=== PATIENT | female | born 1940 | race African-American/Black ===

== ENCOUNTER 2017-03-04 00:32 | Emergency (ER) | payer OTHER ==
[2017-03-04 00:59] VITALS: BMI 23.3
--- NOTE | 2017-03-04 00:59 | DR.GENAD ---
HPI - PCP Primary Care Physician: bertram - Complaint/Symptoms Chief Complaint Doctors Comments: Patient denies any problems except for bleeding of the left heel. Patient denies SOB, tachycardia, fever, dyspnea. Chief Complaint:: PATIENT REPORTS BLEEDING TO LEFT HEEL AND STATES SHE TAKES BLOOD THINNER FOR ATRIAL FIB AND PRIOR CVA. 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 - Family History History of Family Medical Conditions: Yes Family Medical History: Diabetes Mellitus, Cancer, [place], Coronary Artery Disease, Hypertension - Social History Type of Tobacco Use: None Alcohol Use: None Do you use any recreational Drugs:: No Lives With: Family Lives Where: Home - infectious screening In the last 2 months have you had wt loss of >10#?: NO Have you had fever, night sweats or hemotysis?: No Have you traveled outside the country in the last 6 months?: No Isolation: Standard ROS - Review of Systems Eyes: No Symptoms Reported ENTM: No Symptoms Reported Respiratoy: No Symptoms Reported Cardiovascular: No Symptoms Reported Gastrointestinal/Abdominal: No Symptoms Reported Genitourinary: No Symptoms Reported Neurological: No Symptoms Reported Musculoskeletal: No Symptoms Reported Integumentary: No Symptoms Reported Hematologic/Lymphatic: No Symptoms Reported Endocrine: No Symptoms Reported Psychiatric: No Symptoms Reported All Other Systems: Reviewed and Negative PE - Vital Signs Vitals: Temperature 97.8 F Pulse Rate 97 Respiratory Rate 20 Blood Pressure [Right Arm] 133/80 Blood Pressure 150/82 O2 Sat by Pulse Oximetry 100 - General Limitations: No Limitations General Appearance: Alert, In No Apparent Distress - Head Head Exam: Normal Inspection, Atraumatic - Eyes Eye exam: Normal Appearance, PERRL, EOMI - ENT ENT Exam: Normal Exam External Ear Exam: Normal External Inspection TM/Canal Exam: Bilateral Normal Nose Exam: Normal Nose Exam Mouth Exam: Normal Inspection Throat Exam: Normal Inspection - Neck Neck Exam: Normal Inspection - Chest Chest Inspection: Normal Inspection - Respiratory Respiratory Exam: Normal Lung Sounds Bilat Respiratory Exam: Bilateral Clear to Auscultation - Cardiovascular Cardiovascular Exam: Regular Rate, Normal Rhythm - Abdominal Exam Abdominal Exam: Normal Inspection, Normal Bowel Sounds Abdominal Tenderness: negative: RUQ, RLQ, LUQ, LLQ, Epigastrium, Suprapubic, Diffuse, Mild, Moderate, Severe, Other - Extremities Extremities Exam: Normal Inspection, Full ROM, Other (left lateral heel with a 1cm superficial crack to the left heel w/o signs of bleeding.) - Back Back Exam: Normal Inspection, Full ROM - Neurologic Neurological Exam: Alert, Oriented X3, CN II-XII Intact - Psychiatric Psychiatric Exam: Normal Affect - Skin Skin Exam: Warm, Dry, Intact - Diagnosis Discharge Problem: A-fib Qualifiers: Atrial fibrillation type: chronic Qualified Code(s): I48.2 - Chronic atrial fibrillation - Discharge Plan Condition: Stable - Follow ups/Referrals Follow ups/Referrals: Rishi Rowe [Primary Care Provider] - 3 days - Instructions
[2017-03-04 01:29] LABS: EOSINOPHILS % (AUTO) 1.2 % (0.9-2.9); HEMATOCRIT 37.3 % (36.0-47.0); HEMOGLOBIN 12.3 g/dL (12.0-16.0); LYMPHOCYTES % (AUTO) 27.6 % (21.0-51.0); MEAN CORPUSCULAR HEMOGLOBIN 29.1 pg (27.0-34.0); MEAN CORPUSCULAR HGB CONC 32.8 g/dL (33.0-35.0); MEAN CORPUSCULAR VOLUME 88.6 fL (80.0-100.0); MONOCYTES # (AUTO) 0.5 x10^3/uL (0.3-0.8); MONOCYTES % (AUTO) 15.1 % (0.0-13.0); NEUTROPHILS % (AUTO) 55.1 % (42.0-75.0); PLATELET COUNT 166 X10^3/uL (150.0-450.0); RED BLOOD COUNT 4.21 X10^6/uL (3.5-5.4); RED CELL DISTRIBUTION WIDTH 15.9 % (11.6-16.5); WHITE BLOOD COUNT 3.6 X10^3/uL (3.6-10.0)
[2017-03-04 01:46] LABS: BLOOD UREA NITROGEN 23 mg/dL (7-18); CALCIUM 8.8 mg/dL (8.5-10.1); CARBON DIOXIDE 26.3 mmol/L (21-32); CHLORIDE 107 mmol/L (98-107); GLUCOSE 93 mg/dL (65-99); SODIUM 143 mmol/L (136-145); TROPONIN I < 0.02 ng/mL (0-1.5); eGFR BLACK RACES 56 (>60); eGFR NON BLACK RACES 47 (>60)
[2017-03-04 01:51] LABS: ALANINE AMINOTRANSFERASE 32 Units/L (12-78); ALBUMIN 3.3 g/dL (3.4-5.0); ALKALINE PHOSPHATASE 105 Units/L (46-116); ASPARTATE AMINO TRANSFERASE 25 Units/L (15-37); CKMB % 0.9 % (<4); COR CA(FOR HYPOALB) 9.4 mg/dL (8.5-10.1); CREATINE KINASE 113 Units/L (26-192); TOTAL PROTEIN 7.3 g/dL (6.4-8.2)
[2017-03-04 02:00] VITALS: BP 115/80
== END 2017-03-04 02:14 | disposition home or self-care (01) ==
LOC: ER 00:32
DX: I48.2 Chronic atrial fibrillation (principal)
CPT/HCPCS: 36415; 80053; 82550; 82553; 84484; 85025; 85610; 85730; 93005; 99282

== ENCOUNTER → 2017-08-05 | Outpatient (CLI) | payer OTHER ==
--- NOTE | 2017-08-06 16:58 | MG ---
Examination: Bilateral screening mammogram. Clinical history: Routine screening. Technique: Digital CC and MLO views of both breasts were obtained. Computer aided detection analysis was performed and used during the interpretation. Comparison: 08/10/2014. Findings: The breasts are composed of scattered fibroglandular densities. Benign-appearing calcifications are n oted in the breasts bilaterally. There are several clusters of calcifications in the breasts bilaterally, which are either new or have increased in number. Additional imaging evaluation is recommended, with spot magnification views in the CC and lateral projections and lateral views of both breasts. Impression: 1. Clusters of calcifications in the breasts bilaterally, as described above. BI-RADS category 0 (ZERO) - ASSESSMENT INCOMPLETE; ADDITIONAL IMAGING IS NEEDED. Recommend immediate recall for additional imaging evaluation, as described above. Diagnostic CAD was utilized and reviewed. * 0 (ZERO) - ASSESSMENT INCOMPLETE; ADDITIONAL IMAGING IS NEEDED. * 0C - ASSESSMENT INCOMPLETE, NEEDS ADDITIONAL IMAGING EVALUATION AND/OR PRIOR MAMMOGRAMS FOR COMPARI SON. * 1/1 (ONE) - NEGATIVE. * 2/II (TWO) - BENIGN FINDINGS. * 3/III (THREE) - PROBABLY BENIGN FINDING; SHORT INTERVAL FOLLOW-UP SUGGESTED. * 4/IV (FOUR) - SUSPICIOUS ABNORMALITY; BIOPSY SHOULD BE CONSIDERED. * 5/V - HIGHLY SUSPICIOUS OF MALIGNANCY; BIOPSY SHOULD BE PERFORMED. * 6/IV - KNOWN BIOPSY PROVEN MALIGNANCY-APPROPRIATE ACTION SHOULD BE TAKEN. A NEGATIVE X-RAY REPORT SHOULD NOT DELAY BIOPSY IF A DOMINANT OR CLINICALLY SUSPICIOUS MASS IS PRESENT; 4 TO 8 PERCENT OF CANCERS ARE NOT IDENTIFIED BY X-RAY. A NEGATIVE REPORT MAY REINFORCE THE CLINICAL IMPRESSION. ADENOSIS AND DENSE BREASTS MAY OBSCURE AN UNDERLYING NEOPLASM. Reported By:
== END ==
LOC: RAD 09:12
PROVIDERS: ATTEND Internal Medicine
DX: Z12.31 Encounter for screening mammogram for malignant neoplasm of breast (principal); R92.8 Other abnormal and inconclusive findings on diagnostic imaging of breast
CPT/HCPCS: 77067

== ENCOUNTER → 2017-08-08 | Outpatient (CLI) | payer OTHER ==
--- NOTE | 2017-08-11 10:37 | CT ---
HISTORY: Pleurodynia. Patient states she has fallen lately and has a knot on left side of her chest . Study: CT scan of the chest without IV contrast Comparison: No prior chest CTs Technique: Noncontrast CT images of chest are reviewed in axial, coronal and sagittal planes. Dose re duction techniques utilized automatic exposure control. Findings: There is multilevel spondylosis of the thoracic spine. There is accentuation of the patient's thoraci c kyphosis. No fracture is seen. A soft tissue knot is not appreciated within the chest wall. There i s no evidence of mediastinal adenopathy or fluid. The heart is enlarged. There is mild ectasia of the ascending aorta which measures 4 cm in AP diameter. Right and left coronary artery calcifications ar e present. No infiltrate or pleural fluid is seen. There are bilateral noncalcified soft tissue nodul es involving the lungs. These range in size from 2.82 7.2 mm is. The patient should have noncontrast CT follow-up at 3-[address] at 18-24 months. The visualized liver and adrenal glands are normal. There are multiple cysts present involving the left upper renal pole. There are either sm all kidney stones present nor vascular calcifications seen involving the left kidney also. IMPRESSION: Small bilateral pulmonary nodules without calcification. These should be followed with CT as noted ab ove. No infiltrate, adenopathy or pleural fluid. No evidence of soft tissue abnormality involving the chest wall. A fracture is not identified either. Cardiac enlargement with coronary artery calcifications . Reported By:
== END ==
LOC: RAD 08:41
PROVIDERS: ATTEND Internal Medicine
DX: R07.81 Pleurodynia (principal)
CPT/HCPCS: 71250; A4222

== ENCOUNTER 2019-05-06 11:39 | Observation (INO) ==
--- NOTE | 2019-05-06 12:28 | DR.HTN ---
HPI Time Seen Time Seen by Provider: 05/06/19 11:59 Primary Care Physician Primary Care Physician: MAURO Complaints Chief Complaint Doctors Comments: A 72 y/o female here because her pulse is low. 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 This showed low pulse and high BP. She went to the local fire station and the HR was low still. This is her reason for being here. She denies SOB or c/p. Chief Complaint:: PT. C/O HIGH BLOOD PRESSURE. PT. STATES SHE WENT TO THE FIRE STATION TO HAVE IT CHECKED AND IT WAS ELEVATED AND THAT HER HEART RATE WAS LOW. PT. DENIES PAIN. 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 Family History History of Family Medical Conditions: Yes Family Medical History: Diabetes Mellitus, Cancer, [place], Coronary Artery Disease and Hypertension Social History Does patient currently use any type of tobacco product: No Have you used tobacco products in the last 12 months: No Type of Tobacco Use: None Does any household member use tobacco: No Alcohol Use: None Do you use any recreational Drugs:: No Lives With: Family Lives Where: Home infectious screening In the last 2 months have you had wt loss of >10#?: NO Have you had fever, night sweats or hemotysis?: No Have you traveled outside the country in the last 6 months?: No Isolation: Standard ROS Review of Systems Constitutional: No Symptoms Reported Eyes: No Symptoms Reported ENTM: No Symptoms Reported Respiratoy: No Symptoms Reported Cardiovascular: No Symptoms Reported Gastrointestinal/Abdominal: No Symptoms Reported Genitourinary: No Symptoms Reported Neurological: Other (light headed) Musculoskeletal: No Symptoms Reported Integumentary: No Symptoms Reported Hematologic/Lymphatic: No Symptoms Reported Endocrine: No Symptoms Reported Psychiatric: No Symptoms Reported PE Vital Signs Vitals: Temperature 98.3 F Pulse Rate [Right Brachial] 48 Pulse Rate 48 Respiratory Rate 20 Blood Pressure [Right Arm] 107/68 Blood Pressure 191/81 O2 Sat by Pulse Oximetry 98 General Limitations: No Limitations General Appearance: Alert and In No Apparent Distress Head Head Exam: Normal Inspection, Atraumatic and Normocephalic Eyes Eye exam: Normal Appearance and EOMI ENT ENT Exam: Normal Oropharynx, Normal External Ear Exam, Mucous Membranes Moist and TM's Normal Bilaterally Neck Neck Exam: Normal Inspection, Full ROM and Trachea Midline Chest Chest Inspection: Normal Inspection and Symmetric Chest Wall Rise Respiratory Respiratory Exam: Normal Lung Sounds Bilat Cardiovascular Cardiovascular Exam: Bradycardia, Normal Heart Sounds, +S1 and +S2 Abdominal Exam Abdominal Exam: Normal Inspection, Normal Bowel Sounds and Soft Extremities Extremities Exam: Edema (distal legs) Back Back Exam: Normal Inspection Neurologic Neurological Exam: Alert and Oriented X3 Skin Skin Exam: Dry and Normal Color MDM Differential Diagnosis Differential Diagnosis: Hyertension, essential Differential Diagnosis Comment: Medication/Drug effect. COURSE Reevaluation 1st: Improved Education/Counseling Education/Counseling: Patient, Family, Education and Counseling Educated On: Treatment, Diagnosis, Prognosis and Needs for Follow Up ROR Labs Reviewed Result Diagrams: 05/06/19 12:25 05/06/19 12:25 Laboratory: WBC 3.3 X10^3/uL (3.6-10.0) L 05/06/19 12:25 RBC 4.18 X10^6/uL (3.5-5.4) 05/06/19 12:25 Hgb 12.8 g/dL (12.0-16.0) 05/06/19 12:25 Hct 38.4 % (36.0-47.0) 05/06/19 12:25 MCV 92.0 fL (80.0-100.0) 05/06/19 12:25 MCH 30.6 pg (27.0-34.0) 05/06/19 12:25 MCHC 33.2 g/dL (33.0-35.0) 05/06/19 12:25 RDW 14.8 % (11.6-16.5) 05/06/19 12:25 Plt Count 163 X10^3/uL (150.0-450.0) 05/06/19 12:25 MPV 9.0 fL (7.4-11.0) 05/06/19 12:25 Neut % (Auto) 66.7 % (42.0-75.0) 05/06/19 12:25 Lymph % (Auto) 17.1 % (21.0-51.0) L 05/06/19 12:25 [place] % (Auto) 13.9 % (0.0-13.0) H 05/06/19 12:25 Eos % (Auto) 1.4 % (0.9-2.9) 05/06/19 12:25 Baso % (Auto) 0.9 % (0.2-1.0) 05/06/19 12:25 Neut # (Auto) 2.2 x10^3/uL (2.2-4.8) 05/06/19 12:25 Lymph # (Auto) 0.6 X10^3/uL (1.3-2.9) L 05/06/19 12:25 [place] # (Auto) 0.5 x10^3/uL (0.3-0.8) 05/06/19 12:25 Eos # (Auto) 0.0 x10^3/uL (0.0-0.2) 05/06/19 12:25 Baso # (Auto) 0.0 X10^3/uL (0.0-0.1) 05/06/19 12:25 Absolute Nucleated RBC 0.1 /100WBC 05/06/19 12:25 PT 19.4 SECONDS (11.8-14.3) 05/06/19 12:25 INR Target Range - 05/06/19 12:25 INR 1.70 (0.8-1.3) H 05/06/19 12:25 Sodium 142 mmol/L (136-145) 05/06/19 12:25 Corrected Sodium TNP 05/06/19 12:25 Potassium 4.3 mmol/L (3.5-5.1) 05/06/19 12:25 Chloride 104 mmol/L (98-107) 05/06/19 12:25 Carbon Dioxide 27.8 mmol/L (21-32) 05/06/19 12:25 BUN 18 mg/dL (7-18) 05/06/19 12:25 Creatinine 1.36 mg/dL (0.55-1.02) H 05/06/19 12:25 Est GFR (MDRD) Af Amer 48 (>60) L 05/06/19 12:25 Est GFR (MDRD) Non-Af 40 (>60) L 05/06/19 12:25 Glucose 90 mg/dL (65-99) 05/06/19 12:25 Calcium 8.9 mg/dL (8.5-10.1) 05/06/19 12:25 Corrected Calcium TNP 05/06/19 12:25 Total Bilirubin 0.70 mg/dL (0.2-1.0) 05/06/19 12:25 AST 57 Units/L (15-37) H 05/06/19 12:25 ALT 109 Units/L (12-78) H 05/06/19 12:25 Alkaline Phosphatase 89 Units/L (46-116) 05/06/19 12:25 Creatine Kinase 126 Units/L (26-192) 05/06/19 12:25 CK-MB (CK-2) 1.4 ng/mL (0-4.0) 05/06/19 12:25 CK/CKMB % Calc 1.1 % (<4) 05/06/19 12:25 Troponin I < 0.02 ng/mL (0-1.5) 05/06/19 12:25 Total Protein 7.3 g/dL (6.4-8.2) 05/06/19 12:25 Albumin 3.6 g/dL (3.4-5.0) 05/06/19 12:25 Globulin 3.7 g/dL (2.5-4.5) 05/06/19 12:25 Albumin/Globulin Ratio 1.0 Ratio (1.1-2.1) L 05/06/19 12:25 TSH 3rd Generation 1.416 uIU/mL (0.358-3.74) 05/06/19 12:25 XRAY XRAY Interpreted by: Radiologist XRAY Findings: CXR: Increased linear/nodular interstitial markings b/l. EKG Rate: 43 [place]: Normal Rhythm: SB Block: None Hypertrophy: LVH ST: Normal Opioid Opioid Risk Tool Age (Carlos box if 16-45): No History of Preadolescent Sexual Abuse: No Total: 0 Total Score Risk Category: Low Risk Copyright: Smiley predicting aberrant behaviors Diagnosis Discharge Problem: Bradycardia, Hypertension, uncontrolled A-fib Qualifiers: Atrial fibrillation type: paroxysmal Qualified Code(s): I48.0 - Paroxysmal atrial fibrillation Instructions Forms: Excuse From Work
[2019-05-06 12:35] LABS: BASOPHILS % (AUTO) 0.9 % (0.2-1.0); EOSINOPHILS % (AUTO) 1.4 % (0.9-2.9); HEMATOCRIT 38.4 % (36.0-47.0); HEMOGLOBIN 12.8 g/dL (12.0-16.0); LYMPHOCYTES # (AUTO) 0.6 X10^3/uL (1.3-2.9); LYMPHOCYTES % (AUTO) 17.1 % (21.0-51.0); MEAN CORPUSCULAR HEMOGLOBIN 30.6 pg (27.0-34.0); MEAN CORPUSCULAR HGB CONC 33.2 g/dL (33.0-35.0); MONOCYTES # (AUTO) 0.5 x10^3/uL (0.3-0.8); MONOCYTES % (AUTO) 13.9 % (0.0-13.0); NEUTROPHILS # (AUTO) 2.2 x10^3/uL (2.2-4.8); NEUTROPHILS % (AUTO) 66.7 % (42.0-75.0); PLATELET COUNT 163 X10^3/uL (150.0-450.0); RED BLOOD COUNT 4.18 X10^6/uL (3.5-5.4); RED CELL DISTRIBUTION WIDTH 14.8 % (11.6-16.5); WHITE BLOOD COUNT 3.3 X10^3/uL (3.6-10.0)
[2019-05-06 12:54] LABS: BLOOD UREA NITROGEN 18 mg/dL (7-18); CALCIUM 8.9 mg/dL (8.5-10.1); CARBON DIOXIDE 27.8 mmol/L (21-32); CHLORIDE 104 mmol/L (98-107); CREATININE 1.36 mg/dL (0.55-1.02); SODIUM 142 mmol/L (136-145); TROPONIN I < 0.02 ng/mL (0-1.5); eGFR NON BLACK RACES 40 (>60)
[2019-05-06 12:58] LABS: ALANINE AMINOTRANSFERASE 109 Units/L (12-78); ALBUMIN 3.6 g/dL (3.4-5.0); ALKALINE PHOSPHATASE 89 Units/L (46-116); ASPARTATE AMINO TRANSFERASE 57 Units/L (15-37); CKMB % 1.1 % (<4); CREATINE KINASE 126 Units/L (26-192); CREATINE KINASE MB 1.4 ng/mL (0-4.0); TOTAL PROTEIN 7.3 g/dL (6.4-8.2); TSH (3RD GENERATION) 1.416 uIU/mL (0.358-3.74)
[2019-05-06] MEDS ORDERED: APRESOLINE INJ 20 MG VIAL IVP ONE ×3 (13:27→23:22)
[2019-05-06] MEDS ORDERED: APRESOLINE INJ 20 MG VIAL ONE (13:33)
[2019-05-06] MEDS ORDERED: ATROPINE SULFATE ABBOJECT IVP ONE ×3 (14:50→21:39)
[2019-05-06] MEDS ORDERED: ATROPINE SULFATE ABBOJECT ONE ×2 (14:51→20:34)
[2019-05-06 17:53] VITALS: BMI 25.0
[2019-05-06] MEDS ORDERED: CATAPRES-TTS-1 TD SCH (18:00)
[2019-05-06] MEDS: CHECK PATCH XX SCH (20:43)
[2019-05-06] MEDS ORDERED: CORDARONE TAB 200 MG PO SCH (21:00)
[2019-05-06 23:08] LABS: BLOOD UREA NITROGEN 18 mg/dL (7-18); CALCIUM 8.5 mg/dL (8.5-10.1); CARBON DIOXIDE 30.2 mmol/L (21-32); CHLORIDE 108 mmol/L (98-107); CREATININE 1.48 mg/dL (0.55-1.02); SODIUM 145 mmol/L (136-145); TROPONIN I < 0.02 ng/mL (0-1.5); eGFR NON BLACK RACES 36 (>60)
[2019-05-06 23:09] LABS: ALANINE AMINOTRANSFERASE 94 Units/L (12-78); ALBUMIN 3.1 g/dL (3.4-5.0); ALKALINE PHOSPHATASE 84 Units/L (46-116); ASPARTATE AMINO TRANSFERASE 49 Units/L (15-37); CKMB % 1.1 % (<4); COR CA(FOR HYPOALB) 9.2 mg/dL (8.5-10.1); CREATINE KINASE 114 Units/L (26-192); CREATINE KINASE MB 1.2 ng/mL (0-4.0); MAGNESIUM 1.9 mg/dL (1.7-2.9); TOTAL PROTEIN 6.7 g/dL (6.4-8.2)
[2019-05-07 06:48] LABS: BASOPHILS % (AUTO) 0.8 % (0.2-1.0); EOSINOPHILS % (AUTO) 0.7 % (0.9-2.9); HEMATOCRIT 42.1 % (36.0-47.0); LYMPHOCYTES # (AUTO) 0.6 X10^3/uL (1.3-2.9); LYMPHOCYTES % (AUTO) 13.8 % (21.0-51.0); MEAN CORPUSCULAR HEMOGLOBIN 30.9 pg (27.0-34.0); MEAN CORPUSCULAR HGB CONC 33.3 g/dL (33.0-35.0); MEAN PLATELET VOLUME 10.2 fL (7.4-11.0); MONOCYTES # (AUTO) 0.5 x10^3/uL (0.3-0.8); MONOCYTES % (AUTO) 11.9 % (0.0-13.0); NEUTROPHILS # (AUTO) 3.3 x10^3/uL (2.2-4.8); NEUTROPHILS % (AUTO) 72.8 % (42.0-75.0); PLATELET COUNT 128 X10^3/uL (150.0-450.0); RED BLOOD COUNT 4.53 X10^6/uL (3.5-5.4); RED CELL DISTRIBUTION WIDTH 14.8 % (11.6-16.5); WHITE BLOOD COUNT 4.5 X10^3/uL (3.6-10.0)
[2019-05-07 06:51] LABS: ALANINE AMINOTRANSFERASE 110 Units/L (12-78); ALBUMIN 3.5 g/dL (3.4-5.0); ALKALINE PHOSPHATASE 93 Units/L (46-116); ASPARTATE AMINO TRANSFERASE 57 Units/L (15-37); BLOOD UREA NITROGEN 15 mg/dL (7-18); CALCIUM 8.8 mg/dL (8.5-10.1); CHLORIDE 105 mmol/L (98-107); CKMB % 0.8 % (<4); COR NA(FOR HYPERGLY) 141 mmol/L (136-145); CREATINE KINASE 125 Units/L (26-192); CREATINE KINASE MB < 1.0 ng/mL (0-4.0); CREATININE 1.38 mg/dL (0.55-1.02); SODIUM 141 mmol/L (136-145); TOTAL PROTEIN 7.4 g/dL (6.4-8.2); TROPONIN I < 0.02 ng/mL (0-1.5); eGFR NON BLACK RACES 39 (>60)
[2019-05-07] MEDS: CHECK PATCH XX SCH ×2 (09:00→20:57)
[2019-05-07] MEDS: ALDACTONE TAB 25 MG PO SCH (09:41)
[2019-05-07] MEDS: OXYBUTYNIN CHLORIDE ER PO SCH (09:42)
[2019-05-07] MEDS: FOLIC ACID TAB 1 MG PO SCH (09:42)
[2019-05-07] MEDS ORDERED: PHARMACY CONSULT - DOSE _____ XX SCH (14:00)
[2019-05-07] MEDS ORDERED: COZAAR PO SCH (21:00)
[2019-05-07] MEDS ORDERED: LOVENOX INJ 30 MG SYR SC SCH (21:00)
[2019-05-08 06:28] LABS: BASOPHILS % (AUTO) 0.9 % (0.2-1.0); EOSINOPHILS # (AUTO) 0.1 x10^3/uL (0.0-0.2); EOSINOPHILS % (AUTO) 1.3 % (0.9-2.9); HEMATOCRIT 40.5 % (36.0-47.0); HEMOGLOBIN 13.7 g/dL (12.0-16.0); LYMPHOCYTES # (AUTO) 0.7 X10^3/uL (1.3-2.9); LYMPHOCYTES % (AUTO) 14.4 % (21.0-51.0); MEAN CORPUSCULAR HGB CONC 33.8 g/dL (33.0-35.0); MEAN CORPUSCULAR VOLUME 91.8 fL (80.0-100.0); MEAN PLATELET VOLUME 9.3 fL (7.4-11.0); MONOCYTES # (AUTO) 0.7 x10^3/uL (0.3-0.8); NEUTROPHILS # (AUTO) 3.2 x10^3/uL (2.2-4.8); NEUTROPHILS % (AUTO) 68.4 % (42.0-75.0); PLATELET COUNT 170 X10^3/uL (150.0-450.0); RED BLOOD COUNT 4.41 X10^6/uL (3.5-5.4); RED CELL DISTRIBUTION WIDTH 14.9 % (11.6-16.5); WHITE BLOOD COUNT 4.6 X10^3/uL (3.6-10.0)
[2019-05-08 06:39] LABS: ALANINE AMINOTRANSFERASE 94 Units/L (12-78); ALBUMIN 3.1 g/dL (3.4-5.0); ALKALINE PHOSPHATASE 89 Units/L (46-116); ASPARTATE AMINO TRANSFERASE 48 Units/L (15-37); BLOOD UREA NITROGEN 22 mg/dL (7-18); CALCIUM 8.5 mg/dL (8.5-10.1); CARBON DIOXIDE 28.2 mmol/L (21-32); CHLORIDE 104 mmol/L (98-107); COR CA(FOR HYPOALB) 9.2 mg/dL (8.5-10.1); CREATININE 1.41 mg/dL (0.55-1.02); SODIUM 140 mmol/L (136-145); TOTAL PROTEIN 6.9 g/dL (6.4-8.2); eGFR NON BLACK RACES 38 (>60)
[2019-05-08] MEDS: FOLIC ACID TAB 1 MG PO SCH (08:40)
[2019-05-08] MEDS: ALDACTONE TAB 25 MG PO SCH (08:40)
[2019-05-08] MEDS: OXYBUTYNIN CHLORIDE ER PO SCH (08:40)
[2019-05-08] MEDS: CHECK PATCH XX SCH ×2 (08:51→09:04)
[2019-05-08 12:41] VITALS: BP 168/76
== END 2019-05-08 13:25 | disposition home or self-care (01) ==
LOC: ER 11:44 → ICU 11:44
PROVIDERS: ADMIT Internal Medicine; ATTEND Internal Medicine
DX: I48.91 Unspecified atrial fibrillation; R79.1 Abnormal coagulation profile; R00.1 Bradycardia, unspecified; R94.31 Abnormal electrocardiogram [ECG] [EKG]; E78.2 Mixed hyperlipidemia; R94.5 Abnormal results of liver function studies; R94.4 Abnormal results of kidney function studies; I10 Essential (primary) hypertension
CPT/HCPCS: 36415; 71010; 71045; 80053; 82550; 82553; 83735; 84443; 84484; 85025; 85610; 93005; 96365; 96372; 96374; 96375; 97162; 99284; A4222; G0378; J0360; J0461; J1650

== ENCOUNTER 2019-05-22 21:19 | Observation (INO) ==
--- NOTE | 2019-05-22 21:57 | DR.GENAD ---
HPI Time Seen Time Seen by Provider: 05/22/19 21:51 PCP Primary Care Physician: MAURO Complaint/Symptoms Chief Complaint Doctors Comments: A 78 y/o female presenting with c/o having low energy x several weeks. Her PCP had decreased the use of her Coreg from BID to daily. She was at a local pharmacy this evening and had her v/s checked, her pulse was 52. She denies c/p or dyspnea. 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 PT IN NO DISTRESS IN TRIAGE BUT HR NOTED TO BE 45. 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 Past Surgical History Comment: TUBAL LIGATION Family History History of Family Medical Conditions: Yes Family Medical History: Diabetes Mellitus, Cancer, [place], Coronary Artery Disease and Hypertension Social History Does patient currently use any type of tobacco product: No Have you used tobacco products in the last 12 months: No Type of Tobacco Use: None Does any household member use tobacco: No Alcohol Use: None Do you use any recreational Drugs:: No Lives With: Alone Lives Where: Home infectious screening In the last 2 months have you had wt loss of >10#?: NO Have you had fever, night sweats or hemotysis?: No Have you traveled outside the country in the last 6 months?: No Isolation: Standard ROS Review of Systems Constitutional: Fatigue Eyes: No Symptoms Reported ENTM: No Symptoms Reported Respiratoy: No Symptoms Reported Cardiovascular: No Symptoms Reported Gastrointestinal/Abdominal: No Symptoms Reported Genitourinary: No Symptoms Reported Neurological: No Symptoms Reported Musculoskeletal: No Symptoms Reported Integumentary: No Symptoms Reported Hematologic/Lymphatic: No Symptoms Reported Endocrine: No Symptoms Reported Psychiatric: No Symptoms Reported PE Vital Signs Vitals: Temperature 98.8 F Pulse Rate 47 Respiratory Rate 17 Blood Pressure [Right Arm] 177/77 Blood Pressure 177/77 O2 Sat by Pulse Oximetry 99 General Limitations: No Limitations General Appearance: Alert and In No Apparent Distress Head Head Exam: Normal Inspection, Atraumatic and Normocephalic Eyes Eye exam: Normal Appearance and EOMI ENT ENT Exam: Normal Exam, Normal Oropharynx and Mucous Membranes Moist Neck Neck Exam: Normal Inspection, Full ROM and Trachea Midline Chest Chest Inspection: Normal Inspection and Symmetric Chest Wall Rise Respiratory Respiratory Exam: Normal Lung Sounds Bilat Cardiovascular Cardiovascular Exam: Regular Rate, Normal Rhythm, Normal Heart Sounds, +S1 and +S2 Abdominal Exam Abdominal Exam: Normal Inspection, Normal Bowel Sounds and Soft; negative Distention, Tenderness, Guarding, Rebound, Rigidity, Dimnished Bowel Sounds, Hyperactive Bowel Sounds, Hypoactive Bowel Sounds, Organomegaly, Trauma, Incision, Ascites, Mass, Bruit, Pulsatile Mass, Hernia and Other Extremities Extremities Exam: Normal Inspection and Full ROM; negative Tenderness, Normal Capillary Refill, Edema, Joint Swelling and Calf Tenderness Back Back Exam: Normal Inspection and Full ROM Neurologic Neurological Exam: Alert and Oriented X3 Psychiatric Psychiatric Exam: Normal Affect and Normal Mood Skin Skin Exam: Dry and Normal Color COURSE Reevaluation 1st: Improved Consultation Consultation Comments: Her presentation and findings were discussed with astronomy instructor physician- Dr. Rivas, who agrees with admission to OBS status Education/Counseling Education/Counseling: Patient, Education and Counseling Educated On: Treatment, Diagnosis, Prognosis and Needs for Follow Up ROR Labs Reviewed Laboratory Results Reviewed?: Yes Result Diagrams: 05/22/19 22:10 05/22/19 22:10 Laboratory: WBC 4.0 X10^3/uL (3.6-10.0) 05/22/19 22:10 RBC 3.96 X10^6/uL (3.5-5.4) 05/22/19 22:10 Hgb 12.1 g/dL (12.0-16.0) 05/22/19 22:10 Hct 36.3 % (36.0-47.0) 05/22/19 22:10 MCV 91.6 fL (80.0-100.0) 05/22/19 22:10 MCH 30.6 pg (27.0-34.0) 05/22/19 22:10 MCHC 33.4 g/dL (33.0-35.0) 05/22/19 22:10 RDW 14.8 % (11.6-16.5) 05/22/19 22:10 Plt Count 126 X10^3/uL (150.0-450.0) L 05/22/19 22:10 MPV 8.8 fL (7.4-11.0) 05/22/19 22:10 Neut % (Auto) 60.3 % (42.0-75.0) 05/22/19 22:10 Lymph % (Auto) 20.6 % (21.0-51.0) L 05/22/19 22:10 [place] % (Auto) 16.8 % (0.0-13.0) H 05/22/19 22:10 Eos % (Auto) 1.4 % (0.9-2.9) 05/22/19 22:10 Baso % (Auto) 0.9 % (0.2-1.0) 05/22/19 22:10 Neut # (Auto) 2.4 x10^3/uL (2.2-4.8) 05/22/19 22:10 Lymph # (Auto) 0.8 X10^3/uL (1.3-2.9) L 05/22/19 22:10 [place] # (Auto) 0.7 x10^3/uL (0.3-0.8) 05/22/19 22:10 Eos # (Auto) 0.1 x10^3/uL (0.0-0.2) 05/22/19 22:10 Baso # (Auto) 0.0 X10^3/uL (0.0-0.1) 05/22/19 22:10 Absolute Nucleated RBC 0.0 /100WBC 05/22/19 22:10 Sodium 140 mmol/L (136-145) 05/22/19 22:10 Corrected Sodium 140 mmol/L (136-145) 05/22/19 22:10 Potassium 4.0 mmol/L (3.5-5.1) 05/22/19 22:10 Chloride 105 mmol/L (98-107) 05/22/19 22:10 Carbon Dioxide 26.3 mmol/L (21-32) 05/22/19 22:10 BUN 31 mg/dL (7-18) H 05/22/19 22:10 Creatinine 1.83 mg/dL (0.55-1.02) H 05/22/19 22:10 Est GFR (MDRD) Af Amer 34 (>60) L 05/22/19 22:10 Est GFR (MDRD) Non-Af 28 (>60) L 05/22/19 22:10 Glucose 116 mg/dL (65-99) H 05/22/19 22:10 Calcium 8.4 mg/dL (8.5-10.1) L 05/22/19 22:10 Corrected Calcium TNP 05/22/19 22:10 Total Bilirubin 0.40 mg/dL (0.2-1.0) 05/22/19 22:10 AST 80 Units/L (15-37) H 05/22/19 22:10 ALT 150 Units/L (12-78) H 05/22/19 22:10 Alkaline Phosphatase 98 Units/L (46-116) 05/22/19 22:10 Creatine Kinase 124 Units/L (26-192) 05/22/19 22:10 CK-MB (CK-2) 1.1 ng/mL (0-4.0) 05/22/19 22:10 CK/CKMB % Calc 0.9 % (<4) 05/22/19 22:10 Troponin I < 0.02 ng/mL (0-1.5) 05/22/19 22:10 Total Protein 7.1 g/dL (6.4-8.2) 05/22/19 22:10 Albumin 3.4 g/dL (3.4-5.0) 05/22/19 22:10 Globulin 3.7 g/dL (2.5-4.5) 05/22/19 22:10 Albumin/Globulin Ratio 0.9 Ratio (1.1-2.1) L 05/22/19 22:10 TSH 3rd Generation 0.912 uIU/mL (0.358-3.74) 05/22/19 22:10 XRAY XRAY Interpreted by: Self XRAY Findings: CXR: cardiomegaly, Rt. bronchial thickening EKG Rate: 50 [place]: Normal Rhythm: SB Block: None Hypertrophy: LVH ST: Normal Opioid Opioid Risk Tool Age (Carlos box if 16-45): No History of Preadolescent Sexual Abuse: No Total: 0 Total Score Risk Category: Low Risk Copyright: Baljit WRIGHT predicting aberrant behaviors Diagnosis Discharge Problem: Bradycardia, Thrombocytopenia, Elevated LFTs, CKD (chronic kidney disease) stage 3, GFR 30-59 ml/min, Hyperlipidemia, mixed A-fib Qualifiers: Atrial fibrillation type: paroxysmal Qualified Code(s): I48.0 - Paroxysmal atrial fibrillation HTN (hypertension) Qualifiers: Hypertension type: essential hypertension Qualified Code(s): I10 - Essential (primary) hypertension
[2019-05-22 22:20] LABS: BASOPHILS % (AUTO) 0.9 % (0.2-1.0); EOSINOPHILS # (AUTO) 0.1 x10^3/uL (0.0-0.2); EOSINOPHILS % (AUTO) 1.4 % (0.9-2.9); HEMATOCRIT 36.3 % (36.0-47.0); HEMOGLOBIN 12.1 g/dL (12.0-16.0); LYMPHOCYTES # (AUTO) 0.8 X10^3/uL (1.3-2.9); LYMPHOCYTES % (AUTO) 20.6 % (21.0-51.0); MEAN CORPUSCULAR HEMOGLOBIN 30.6 pg (27.0-34.0); MEAN CORPUSCULAR HGB CONC 33.4 g/dL (33.0-35.0); MEAN CORPUSCULAR VOLUME 91.6 fL (80.0-100.0); MEAN PLATELET VOLUME 8.8 fL (7.4-11.0); MONOCYTES # (AUTO) 0.7 x10^3/uL (0.3-0.8); MONOCYTES % (AUTO) 16.8 % (0.0-13.0); NEUTROPHILS # (AUTO) 2.4 x10^3/uL (2.2-4.8); NEUTROPHILS % (AUTO) 60.3 % (42.0-75.0); PLATELET COUNT 126 X10^3/uL (150.0-450.0); RED BLOOD COUNT 3.96 X10^6/uL (3.5-5.4); RED CELL DISTRIBUTION WIDTH 14.8 % (11.6-16.5)
[2019-05-22 22:36] LABS: BLOOD UREA NITROGEN 31 mg/dL (7-18); CALCIUM 8.4 mg/dL (8.5-10.1); CARBON DIOXIDE 26.3 mmol/L (21-32); CHLORIDE 105 mmol/L (98-107); COR NA(FOR HYPERGLY) 140 mmol/L (136-145); CREATININE 1.83 mg/dL (0.55-1.02); SODIUM 140 mmol/L (136-145); TROPONIN I < 0.02 ng/mL (0-1.5); eGFR NON BLACK RACES 28 (>60)
[2019-05-22 22:40] LABS: ALANINE AMINOTRANSFERASE 150 Units/L (12-78); ALBUMIN 3.4 g/dL (3.4-5.0); ALKALINE PHOSPHATASE 98 Units/L (46-116); ASPARTATE AMINO TRANSFERASE 80 Units/L (15-37); CREATINE KINASE 124 Units/L (26-192); TOTAL PROTEIN 7.1 g/dL (6.4-8.2); TSH (3RD GENERATION) 0.912 uIU/mL (0.358-3.74)
[2019-05-22 23:02] LABS: CKMB % 0.9 % (<4); CREATINE KINASE MB 1.1 ng/mL (0-4.0)
[2019-05-22] MEDS ORDERED: CATAPRES-TTS-2 TD SCH (23:59)
[2019-05-22] MEDS ORDERED: VITAMIN D (1.25MG) PO SCH (23:59)
[2019-05-23 02:11] VITALS: BMI 25.1
--- NOTE | 2019-05-23 04:26 | RAD ---
Chest AP portable Indication: Bradycardia Impression: 05/06/2019 Findings: There is no pneumothorax or effusion. There is cardiomegaly with monitoring leads obscuring minimal detail. Impression: Cardiomegaly and COPD without new convincing acute chest process. Developing edema not completely excluded. Follow-up PA and lateral chest to exclude underlying lung base infection as needed Reported By:
[2019-05-23 05:18] LABS: BASOPHILS % (AUTO) 0.6 % (0.2-1.0); EOSINOPHILS # (AUTO) 0.1 x10^3/uL (0.0-0.2); HEMATOCRIT 36.2 % (36.0-47.0); HEMOGLOBIN 12.1 g/dL (12.0-16.0); LYMPHOCYTES # (AUTO) 1.1 X10^3/uL (1.3-2.9); LYMPHOCYTES % (AUTO) 27.8 % (21.0-51.0); MEAN CORPUSCULAR HGB CONC 33.4 g/dL (33.0-35.0); MEAN PLATELET VOLUME 9.5 fL (7.4-11.0); MONOCYTES # (AUTO) 0.7 x10^3/uL (0.3-0.8); MONOCYTES % (AUTO) 16.4 % (0.0-13.0); NEUTROPHILS # (AUTO) 2.1 x10^3/uL (2.2-4.8); NEUTROPHILS % (AUTO) 53.2 % (42.0-75.0); PLATELET COUNT 119 X10^3/uL (150.0-450.0); RED CELL DISTRIBUTION WIDTH 14.6 % (11.6-16.5)
[2019-05-23 05:24] LABS: ALANINE AMINOTRANSFERASE 135 Units/L (12-78); ALKALINE PHOSPHATASE 79 Units/L (46-116); ASPARTATE AMINO TRANSFERASE 74 Units/L (15-37); BLOOD UREA NITROGEN 27 mg/dL (7-18); CALCIUM 8.6 mg/dL (8.5-10.1); CARBON DIOXIDE 25.3 mmol/L (21-32); CHLORIDE 107 mmol/L (98-107); COR CA(FOR HYPOALB) 9.4 mg/dL (8.5-10.1); CREATININE 1.54 mg/dL (0.55-1.02); SODIUM 140 mmol/L (136-145); TOTAL PROTEIN 6.3 g/dL (6.4-8.2); eGFR NON BLACK RACES 35 (>60)
[2019-05-23] MEDS ORDERED: CORDARONE TAB 200 MG PO SCH (09:00)
[2019-05-23] MEDS: ALDACTONE TAB 25 MG PO SCH (10:02)
[2019-05-23] MEDS: FOLIC ACID TAB 1 MG PO SCH (10:02)
[2019-05-23] MEDS: OXYBUTYNIN CHLORIDE ER PO SCH (10:03)
--- NOTE | 2019-05-23 13:12 | DR.H&P ---
H&P History & Physical for Day of: H&P Date: 05/23/19 Chief Complaint Chief Complaint: weakness, low HR Allergies Allergies Allergy/AdvReac Type Severity Reaction Status Date / Time No Known Drug Allergies Allergy Verified 05/22/19 21:55 History of Present Illness History of Present Illness: Ms. Carroll is a 78y/o female presenting with weakness and low HR. Patient was admitted couple weeks ago for same symptoms and bradycardia. She was seen by Dr. Rowe and told to decrease her Coreg from BID to once a day. She reports she still feels weak. She was seen at the pharmacy yesterday and found to have decreased HR in the 40s. In the ED, her HR was in low 40s and it has been in mid 30s-40s overnight. She denies chest pain, SOB, N/V/D or dizziness. 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 Family History Family Medical History: Diabetes Mellitus, Cancer, [place], Coronary Artery Disease and Hypertension Social History Does patient currently use any type of tobacco product: No Have you used tobacco products in the last 12 months: No Type of Tobacco Use: None Does any household member use tobacco: No Alcohol Use: None Drug Use: None Medications Home Medications: No Known Drug Allergies Allergy (Verified 05/22/19 21:55) Labs Result Diagrams: 05/23/19 04:26 05/23/19 04:26 Labs: Laboratory WBC 4.0 X10^3/uL (3.6-10.0) 05/23/19 04:26 RBC 3.90 X10^6/uL (3.5-5.4) 05/23/19 04:26 Hgb 12.1 g/dL (12.0-16.0) 05/23/19 04:26 Hct 36.2 % (36.0-47.0) 05/23/19 04:26 MCV 93.0 fL (80.0-100.0) 05/23/19 04:26 MCH 31.0 pg (27.0-34.0) 05/23/19 04:26 MCHC 33.4 g/dL (33.0-35.0) 05/23/19 04:26 RDW 14.6 % (11.6-16.5) 05/23/19 04:26 Plt Count 119 X10^3/uL (150.0-450.0) L 05/23/19 04:26 MPV 9.5 fL (7.4-11.0) 05/23/19 04:26 Neut % (Auto) 53.2 % (42.0-75.0) 05/23/19 04:26 Lymph % (Auto) 27.8 % (21.0-51.0) 05/23/19 04:26 [place] % (Auto) 16.4 % (0.0-13.0) H 05/23/19 04:26 Eos % (Auto) 2.0 % (0.9-2.9) 05/23/19 04:26 Baso % (Auto) 0.6 % (0.2-1.0) 05/23/19 04:26 Neut # (Auto) 2.1 x10^3/uL (2.2-4.8) L 05/23/19 04:26 Lymph # (Auto) 1.1 X10^3/uL (1.3-2.9) L 05/23/19 04:26 [place] # (Auto) 0.7 x10^3/uL (0.3-0.8) 05/23/19 04:26 Eos # (Auto) 0.1 x10^3/uL (0.0-0.2) 05/23/19 04:26 Baso # (Auto) 0.0 X10^3/uL (0.0-0.1) 05/23/19 04:26 Absolute Nucleated RBC 0.1 /100WBC 05/23/19 04:26 PT 34.4 SECONDS (11.8-14.3) 05/23/19 04:26 INR Target Range - 05/23/19 04:26 INR 3.54 (0.8-1.3) H 05/23/19 04:26 Sodium 140 mmol/L (136-145) 05/23/19 04:26 Corrected Sodium TNP 05/23/19 04:26 Potassium 4.1 mmol/L (3.5-5.1) 05/23/19 04:26 Chloride 107 mmol/L (98-107) 05/23/19 04:26 Carbon Dioxide 25.3 mmol/L (21-32) 05/23/19 04:26 BUN 27 mg/dL (7-18) H 05/23/19 04:26 Creatinine 1.54 mg/dL (0.55-1.02) H 05/23/19 04:26 Est GFR (MDRD) Af Amer 42 (>60) L 05/23/19 04:26 Est GFR (MDRD) Non-Af 35 (>60) L 05/23/19 04:26 Glucose 85 mg/dL (65-99) 05/23/19 04:26 Calcium 8.6 mg/dL (8.5-10.1) 05/23/19 04:26 Corrected Calcium 9.4 mg/dL (8.5-10.1) 05/23/19 04:26 Total Bilirubin 0.40 mg/dL (0.2-1.0) 05/23/19 04:26 AST 74 Units/L (15-37) H 05/23/19 04:26 ALT 135 Units/L (12-78) H 05/23/19 04:26 Alkaline Phosphatase 79 Units/L (46-116) 05/23/19 04:26 Creatine Kinase 124 Units/L (26-192) 05/22/19 22:10 CK-MB (CK-2) 1.1 ng/mL (0-4.0) 05/22/19 22:10 CK/CKMB % Calc 0.9 % (<4) 05/22/19 22:10 Troponin I < 0.02 ng/mL (0-1.5) 05/22/19 22:10 Total Protein 6.3 g/dL (6.4-8.2) L 05/23/19 04:26 Albumin 3.0 g/dL (3.4-5.0) L 05/23/19 04:26 Globulin 3.3 g/dL (2.5-4.5) 05/23/19 04:26 Albumin/Globulin Ratio 0.9 Ratio (1.1-2.1) L 05/23/19 04:26 TSH 3rd Generation 0.912 uIU/mL (0.358-3.74) 05/22/19 22:10 Review of Systems Constitutional: Weakness; denies Fever, Chills, Sweats and Malaise Eyes: No Symptoms Reported ENT: No Symptoms Reported Respiratory: denies Cough, Shortness of Breath, SOB with Excertion and Pleuritic Pain Cardiovascular: Light Headedness; denies Chest Pain, Palpitations and Orthopnea Gastrointestinal: denies Nausea, Vomiting, Abdominal Pain, Diarrhea and Constipation Genitourinary: No Symptoms Reported Musculoskeletal: No Symptoms Reported Skin: No Symptoms Reported Neurological: Weakness; denies Confusion and Seizures Physical Exam Vital Signs: Temperature 97.9 F Pulse Rate [Right Brachial] 41 Pulse Rate 48 Respiratory Rate 18 Blood Pressure [Right Arm] 149/86 Blood Pressure 187/77 O2 Sat by Pulse Oximetry 100 Oriented: Normal Eyes: Normal Ear: Normal Nose: Normal Respiratory: Clear Throughout Cardiovascular: Bradycardia and Irregular Auscultation: Bowel Sounds: Normal Palpation: Normal Tenderness: Normal Skin: Normal Musculoskeletal: Normal Psychiatric: Normal Mood Description: Calm Speech Pattern: Clear Assessment/Plan (1) Symptomatic bradycardia: Status: Acute Plan: recurrent admissions, HR in mid 30-40s. Coreg and Amiodarone on hold. EKG shows Sinus bradycardia, will consult cardiology for further evaluation. Telemetry, monitor HR closely. Notify MD if less than 30. (2) A-fib: Qualifiers: Atrial fibrillation type: chronic Qualified Code(s): I48.2 - Chronic atrial fibrillation Status: Acute Plan: rate controlled, BB on hold due to bradycardia, INR elevated, will hold warfarin (3) History of hypertension: Status: Chronic (4) History of hyperlipidemia: Status: Chronic (5) Arthritis: Status: Chronic (6) Stroke determined by clinical assessment: Status: Acute (7) Thrombocytopenia: Status: Acute (8) Cervical sprain: Qualifiers: Encounter type: initial encounter Qualified Code(s): S13.9XXA - Sprain of joints and ligaments of unspecified parts of neck, initial encounter Status: Acute (9) CAD (coronary artery disease): Status: Acute (10) COPD (chronic obstructive pulmonary disease): Status: Acute (11) CKD (chronic kidney disease) stage 3, GFR 30-59 ml/min: Status: Acute (12) Supratherapeutic INR: Status: Acute Plan: -monitor with daily PT/INR
[2019-05-23] MEDS: COZAAR PO SCH (20:39)
[2019-05-23] MEDS ORDERED: MILK OF MAGNESIA PO PRN (20:40)
[2019-05-23] MEDS ORDERED: COUMADIN TAB 3 MG PO SCH (21:00)
[2019-05-24 05:32] LABS: BASOPHILS % (AUTO) 0.6 % (0.2-1.0); BLOOD UREA NITROGEN 21 mg/dL (7-18); CALCIUM 8.4 mg/dL (8.5-10.1); CARBON DIOXIDE 28.3 mmol/L (21-32); CHLORIDE 105 mmol/L (98-107); CREATININE 1.41 mg/dL (0.55-1.02); EOSINOPHILS # (AUTO) 0.1 x10^3/uL (0.0-0.2); EOSINOPHILS % (AUTO) 2.6 % (0.9-2.9); HEMATOCRIT 36.3 % (36.0-47.0); HEMOGLOBIN 12.1 g/dL (12.0-16.0); LYMPHOCYTES # (AUTO) 0.8 X10^3/uL (1.3-2.9); LYMPHOCYTES % (AUTO) 21.9 % (21.0-51.0); MEAN CORPUSCULAR HEMOGLOBIN 30.5 pg (27.0-34.0); MEAN CORPUSCULAR HGB CONC 33.3 g/dL (33.0-35.0); MEAN CORPUSCULAR VOLUME 91.7 fL (80.0-100.0); MEAN PLATELET VOLUME 9.7 fL (7.4-11.0); MONOCYTES # (AUTO) 0.6 x10^3/uL (0.3-0.8); MONOCYTES % (AUTO) 15.9 % (0.0-13.0); NEUTROPHILS # (AUTO) 2.1 x10^3/uL (2.2-4.8); PLATELET COUNT 130 X10^3/uL (150.0-450.0); RED BLOOD COUNT 3.95 X10^6/uL (3.5-5.4); RED CELL DISTRIBUTION WIDTH 14.5 % (11.6-16.5); SODIUM 141 mmol/L (136-145); WHITE BLOOD COUNT 3.5 X10^3/uL (3.6-10.0); eGFR NON BLACK RACES 38 (>60)
[2019-05-24] MEDS: ALDACTONE TAB 25 MG PO SCH (08:53)
[2019-05-24] MEDS: FOLIC ACID TAB 1 MG PO SCH (08:54)
[2019-05-24] MEDS: OXYBUTYNIN CHLORIDE ER PO SCH (08:54)
[2019-05-24] MEDS ORDERED: SYNTHROID 50 mcg TAB ONE (08:58)
--- NOTE | 2019-05-24 10:09 | PCM.PROG ---
Progress Note - Progress Note for Day of Date of Exam: 05/24/19 - Subjective Subjective: WAS ADMITTED FOR BRADYCARDIA, WEAKNESS, THROMBOCYTOPENIA, AND CHRONIC KIDNEY DISEASE. TODAY, SHE IS ALERT AND ORIENTED, LYING IN BED ON MORNING ROUNDS. SHE REPORTS GENERALIZED WEAKNESS AND CONTINUES WITH BRADYCARDIA. SHE ALSO REPORTS DIZZINESS AT TIMES. SHE HAD BEEN TAKING COREG 3.125MG PO BID AT HOME, BUT WE WILL DISCONTINUE THIS. ON EXAMINATION, SHE IS NOTED WITH HR IN THE 40S, REGULAR. BILATERAL LUNGS ARE NOTED TO BE CLEAR TO AUSCULTATION. ABDOMEN IS ROUND, SOFT, AND NON-TENDER WITH NORMAL BOWEL SOUNDS NOTED IN ALL QUADRNATS. HER VITALS THIS MORNING ARE: 97.8-40-18-98%-164/73. LABS WERE OBTAINED. ABNORMAL LAB VALUES INCLUDE THE FOLLOWING: WBC 3.5, PLT COUNT 130, INR 3.40, BUN 21, CREATININE 1.41, CALCIUM 8.4. WE HAVE CONSULTED , HEALTH PSYCHOLOGIST. HE WILL SEE HER THIS AFTERNOON. OTHERWISE, WE WILL CONTINUE WITH CURRENT PLAN OF CARE TODAY. WE PLAN TO FOLLOW UP WITH AM LABS AND CONTINUE TO MONITOR. - Past Medical Family Social History Past Med/Fam/Surg Hx: No changes since H&P Allergies: Allergies No Known Drug Allergies Allergy (Verified 05/22/19 21:55) - Review of Systems ROS: No change since H&P - Vital Signs and I&O's Vital Signs: Temperature 97.8 F Pulse Rate [Right Brachial] 40 Pulse Rate 48 Respiratory Rate 18 Blood Pressure [Right Arm] 164/73 Blood Pressure 187/77 O2 Sat by Pulse Oximetry 98 Intake and Output: Intake & Output 05/21/19 05/22/19 05/23/19 05/24/19 11:59 11:59 11:59 11:59 Intake Total 100 / 100 1460 / 1460 Balance 100 / 100 1460 / 1460 - Physical Exam Oriented: Normal Eyes: Normal Ear: Normal Nose: Normal Throat: Normal Respiratory: Normal Cardiovascular: Bradycardia Auscultation: Bowel Sounds: Normal Palpation: Normal Tenderness: Normal Skin: Normal Musculoskeletal: Normal Psychiatric: Normal Mood Description: Calm Speech Pattern: Clear, Appropriate - Laboratory and Diagnostics Result Diagrams: 05/24/19 04:45 05/24/19 04:45 Labs: Laboratory WBC 3.5 X10^3/uL (3.6-10.0) L 05/24/19 04:45 RBC 3.95 X10^6/uL (3.5-5.4) 05/24/19 04:45 Hgb 12.1 g/dL (12.0-16.0) 05/24/19 04:45 Hct 36.3 % (36.0-47.0) 05/24/19 04:45 MCV 91.7 fL (80.0-100.0) 05/24/19 04:45 MCH 30.5 pg (27.0-34.0) 05/24/19 04:45 MCHC 33.3 g/dL (33.0-35.0) 05/24/19 04:45 RDW 14.5 % (11.6-16.5) 05/24/19 04:45 Plt Count 130 X10^3/uL (150.0-450.0) L 05/24/19 04:45 MPV 9.7 fL (7.4-11.0) 05/24/19 04:45 Neut % (Auto) 59.0 % (42.0-75.0) 05/24/19 04:45 Lymph % (Auto) 21.9 % (21.0-51.0) 05/24/19 04:45 [place] % (Auto) 15.9 % (0.0-13.0) H 05/24/19 04:45 Eos % (Auto) 2.6 % (0.9-2.9) 05/24/19 04:45 Baso % (Auto) 0.6 % (0.2-1.0) 05/24/19 04:45 Neut # (Auto) 2.1 x10^3/uL (2.2-4.8) L 05/24/19 04:45 Lymph # (Auto) 0.8 X10^3/uL (1.3-2.9) L 05/24/19 04:45 [place] # (Auto) 0.6 x10^3/uL (0.3-0.8) 05/24/19 04:45 Eos # (Auto) 0.1 x10^3/uL (0.0-0.2) 05/24/19 04:45 Baso # (Auto) 0.0 X10^3/uL (0.0-0.1) 05/24/19 04:45 Absolute Nucleated RBC 0.1 /100WBC 05/24/19 04:45 PT 33.3 SECONDS (11.8-14.3) 05/24/19 04:45 INR Target Range - 05/24/19 04:45 INR 3.40 (0.8-1.3) H 05/24/19 04:45 Sodium 141 mmol/L (136-145) 05/24/19 04:45 Corrected Sodium TNP 05/24/19 04:45 Potassium 4.0 mmol/L (3.5-5.1) 05/24/19 04:45 Chloride 105 mmol/L (98-107) 05/24/19 04:45 Carbon Dioxide 28.3 mmol/L (21-32) 05/24/19 04:45 BUN 21 mg/dL (7-18) H 05/24/19 04:45 Creatinine 1.41 mg/dL (0.55-1.02) H 05/24/19 04:45 Est GFR (MDRD) Af Amer 47 (>60) L 05/24/19 04:45 Est GFR (MDRD) Non-Af 38 (>60) L 05/24/19 04:45 Glucose 88 mg/dL (65-99) 05/24/19 04:45 Calcium 8.4 mg/dL (8.5-10.1) L 05/24/19 04:45 Corrected Calcium 9.4 mg/dL (8.5-10.1) 05/23/19 04:26 Total Bilirubin 0.40 mg/dL (0.2-1.0) 05/23/19 04:26 AST 74 Units/L (15-37) H 05/23/19 04:26 ALT 135 Units/L (12-78) H 05/23/19 04:26 Alkaline Phosphatase 79 Units/L (46-116) 05/23/19 04:26 Creatine Kinase 124 Units/L (26-192) 05/22/19 22:10 CK-MB (CK-2) 1.1 ng/mL (0-4.0) 05/22/19 22:10 CK/CKMB % Calc 0.9 % (<4) 05/22/19 22:10 Troponin I < 0.02 ng/mL (0-1.5) 05/22/19 22:10 Total Protein 6.3 g/dL (6.4-8.2) L 05/23/19 04:26 Albumin 3.0 g/dL (3.4-5.0) L 05/23/19 04:26 Globulin 3.3 g/dL (2.5-4.5) 05/23/19 04:26 Albumin/Globulin Ratio 0.9 Ratio (1.1-2.1) L 05/23/19 04:26 TSH 3rd Generation 0.912 uIU/mL (0.358-3.74) 05/22/19 22:10 - Plan (1) Symptomatic bradycardia Status: Acute Plan: HR in mid 30-40s. Amiodarone on hold. Discontinue coreg. EKG shows Sinus bradycardia, will consult cardiology for further evaluation. Telemetry, monitor HR closely. Notify MD if less than 30. (2) Generalized weakness Status: Acute
[2019-05-24] MEDS: SYNTHROID 50 mcg TAB PO SCH (16:16)
[2019-05-24] MEDS: COZAAR PO SCH (20:25)
[2019-05-25 05:32] LABS: BASOPHILS % (AUTO) 1.2 % (0.2-1.0); EOSINOPHILS # (AUTO) 0.1 x10^3/uL (0.0-0.2); EOSINOPHILS % (AUTO) 2.7 % (0.9-2.9); HEMATOCRIT 40.4 % (36.0-47.0); HEMOGLOBIN 13.5 g/dL (12.0-16.0); LYMPHOCYTES # (AUTO) 0.7 X10^3/uL (1.3-2.9); LYMPHOCYTES % (AUTO) 19.9 % (21.0-51.0); MEAN CORPUSCULAR HGB CONC 33.4 g/dL (33.0-35.0); MEAN CORPUSCULAR VOLUME 92.9 fL (80.0-100.0); MEAN PLATELET VOLUME 9.3 fL (7.4-11.0); MONOCYTES # (AUTO) 0.6 x10^3/uL (0.3-0.8); MONOCYTES % (AUTO) 14.8 % (0.0-13.0); NEUTROPHILS # (AUTO) 2.3 x10^3/uL (2.2-4.8); NEUTROPHILS % (AUTO) 61.4 % (42.0-75.0); PLATELET COUNT 125 X10^3/uL (150.0-450.0); RED BLOOD COUNT 4.35 X10^6/uL (3.5-5.4); RED CELL DISTRIBUTION WIDTH 14.5 % (11.6-16.5); WHITE BLOOD COUNT 3.7 X10^3/uL (3.6-10.0)
[2019-05-25 05:45] LABS: BLOOD UREA NITROGEN 17 mg/dL (7-18); CALCIUM 8.6 mg/dL (8.5-10.1); CHLORIDE 104 mmol/L (98-107); CREATININE 1.36 mg/dL (0.55-1.02); SODIUM 139 mmol/L (136-145); eGFR NON BLACK RACES 40 (>60)
[2019-05-25] MEDS: SYNTHROID 50 mcg TAB PO SCH (06:59)
[2019-05-25] MEDS: FOLIC ACID TAB 1 MG PO SCH (08:46)
[2019-05-25] MEDS: OXYBUTYNIN CHLORIDE ER PO SCH (08:46)
[2019-05-25] MEDS: ALDACTONE TAB 25 MG PO SCH (08:46)
[2019-05-25 09:33] VITALS: BP 182/79
[2019-05-26] MEDS ORDERED: VITAMIN D (1.25MG) PO SCH (09:00)
== END 2019-05-25 13:05 | disposition home or self-care (01) ==
LOC: ER 21:19 → MED/SURG 21:19
PROVIDERS: ADMIT Family Medicine; ATTEND Internal Medicine
DX: R53.1 Weakness; J44.9 Chronic obstructive pulmonary disease, unspecified; E78.2 Mixed hyperlipidemia; I25.10 Atherosclerotic heart disease of native coronary artery without angina pectoris; D69.6 Thrombocytopenia, unspecified; R70.0 Elevated erythrocyte sedimentation rate; R79.1 Abnormal coagulation profile; N18.3 Chronic kidney disease, stage 3 (moderate); R94.31 Abnormal electrocardiogram [ECG] [EKG]; R26.89 Other abnormalities of gait and mobility; I10 Essential (primary) hypertension; R00.1 Bradycardia, unspecified
CPT/HCPCS: 36415; 71010; 71045; 80048; 80053; 82550; 82553; 84443; 84484; 85025; 85610; 93005; 96365; 97110; 97116; 97162; 97165; 99284; A4216; A4222; G0378

== ENCOUNTER 2019-06-13 10:53 | Inpatient (IN) ==
[2019-06-13 11:02] VITALS: BMI 25.0
--- NOTE | 2019-06-13 11:15 | DR.DIZZY ---
HPI Time seen Time Seen by Provider: 06/13/19 11:02 PCP Primary Care Physician: MAURO HPI Comment HPI Comment: THIS IS 79YR OLD FEMALE IN THE EMERGENCY ROOM WITH GENERALIZED WEAKNESS AND FALLING. DISCHARGE FROM HOSPITAL ONE WEEK AGO. WAS ADMITTED FOR BRADYCARDIA. HISTORY UTI. DENIES PAIN. HERE VIA AMBULANCE. Complaint Chief Complaint Doctor Comments: FELL, GENERALIZED WEAKNESS. Chief Complaint:: EMS BRINGS PT. IN WITH C/O GENERALIZED WEAKNESS AND FALL. PT. DENIES PAIN OR INJURY R/T FALL. Nurses Notes Reviewed Nurses Notes Review: Yes Source History Provided: Patient and EMS Mode of Arrival Mode of Arrival: EMS Timing Onset of Chief Complaint: 06/13/19 Came on: Suddenly Duration Duration: Constant Duration: Days Location of Weakness Weakness Location: Generalized Context Onset: At rest History of: CVA and TIA Stroke Symptoms: Dizziness Severity Severity: Abnormal activity level Modifying factors Worsens: Other (WITH MOVEMENT.) Associated signs and symptoms Associated Signs and Symptoms: Imbalance and Weak Other history Other history: PREVIOUS CVA. 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 Family History History of Family Medical Conditions: Yes Family Medical History: Diabetes Mellitus, Cancer, [place], Coronary Artery Disease and Hypertension Social History Does patient currently use any type of tobacco product: No Have you used tobacco products in the last 12 months: No Type of Tobacco Use: None Does any household member use tobacco: No Alcohol Use: None Do you use any recreational Drugs:: No Lives With: Alone Lives Where: Home infectious screening In the last 2 months have you had wt loss of >10#?: NO Have you had fever, night sweats or hemotysis?: No Have you traveled outside the country in the last 6 months?: No Isolation: Standard ROS Review of Systems Constitutional: See HPI, Weakness and Fatigue; negative Fever Eyes: No Symptoms Reported and See HPI; negative Eye Pain, Blurred Vision, Discharge, Photophobia and Diplopia ENTM: No Symptoms Reported and See HPI; negative Ear Pain, Nose Discharge, Nose Congestion and Throat Pain Respiratoy: See HPI, Non-Productive Cough and Short of Breath (ON EXERTION.); negative Wheezing Cardiovascular: No Symptoms Reported and See HPI; negative Chest Pain and Palpitations Gastrointestinal/Abdominal: See HPI and Constipation; negative Abdominal Pain, Diarrhea, Nausea and Vomiting Genitourinary: No Symptoms Reported and See HPI; negative Dysuria, Hematuria and Pain Neurological: See HPI, Headache, Pre-existing Deficit (LEFT SIDED WEAKNESS.), Weakness, Dizziness and Problems Walking Musculoskeletal: See HPI and Muscle Pain; negative Back Pain Integumentary: No Symptoms Reported and See HPI; negative Change in Color, Rash and Juandice Hematologic/Lymphatic: See HPI, Easy Bleeding and Easy Bruising; negative [place]olle n Glands Endocrine: See HPI and Decreased Appetite; negative Unexplained Weight Loss and Failure to Thrive Psychiatric: No Symptoms Reported and See HPI All Other Systems: Reviewed and Negative PE Vital Signs Vitals: Temperature 98.9 F Pulse Rate [Right Brachial] 51 Pulse Rate [Left Brachial] 55 Pulse Rate 69 Respiratory Rate 18 Blood Pressure [Left Arm] 167/79 Blood Pressure [Right Arm] 131/60 Blood Pressure 124/59 O2 Sat by Pulse Oximetry 97 General General Appearance: Alert and In No Apparent Distress Head Head Exam: Normal Inspection and Atraumatic Eyes Eye exam: Normal Appearance and PERRL; negative Scleral Icterus and Conjunctival Injection Pupils: Regular, Round: Bilateral and Reactive: Bilateral Sclera/Conjunctival: Normal Inspection: Bilateral ENT ENT Exam: Normal Exam, Normal Oropharynx, Normal External Ear Exam and TM's Normal Bilaterally Neck Neck Exam: Normal Inspection and Trachea Midline; negative Tenderness and Lymphadenopathy Chest Chest Inspection: Normal Inspection and Symmetric Chest Wall Rise; negative Tenderness Respiratory Respiratory Exam: Normal Lung Sounds Bilat; negative Accessory Muscle Use, Chest Wall Tenderness and Respiratory Distress Respiratory Exam: Bilateral: Rhonchi and Lower: Rhonchi Cardiovascular Cardiovascular Exam: Regular Rate, Normal Rhythm and Normal Heart Sounds; negative Systolic Murmur and Diastolic Murmur Abdominal Exam Abdominal Exam: Normal Inspection, Normal Bowel Sounds and Soft; negative Tenderness Rectal Rectal Exam: Deferred Extremeties Extremities Exam: Normal Capillary Refill and Edema (TRACE EDEMA.) Back Back Exam: Normal Inspection; negative (R) CVA Tenderness and (L) CVA Tenderness Neurologic Neurological Exam: Alert, Oriented X3, CN II-XII Intact and Motor Sensory Deficit (LEFT SIDED WEAKNESS) Patient Oriented To: Person, Place and Time Speech: Fluid Speech Cranial Nerve Exam: EOM Function (II, III, IV, ): Normal, Facial Sensation (V): Normal, Facial Palsy (VII): Normal, Gag reflex (XI): Normal, Spinal Accessory Function (XI): Normal and Tongue Deviation: Normal Motor Strength - LUE: 4/5 Motor Strength - RUE: 5/5 Motor Strength - LLE: 3/5 Motor Strength - RLE: 5/5 Psychiatric Psychiatric Exam: Normal Affect and Normal Mood Skin Skin Exam: Warm, Dry, Intact and Normal Color MDM Differential Diagnosis Differential Diagnosis: Anemia, CVA, Dehydration, Dysrhythmia, Electrolyte disorder, Hypoglycemia, Labyrinthitis, Myocardial infarction, TIA and Central Vertigo COURSE Treatment Treatment: SEE ORDERS. Consultation Consultation Comments: DISCUSSED PATIENT WITH DR. ASHRAF. HE WILL ADMIT PATIENT. Education/Counseling Education/Counseling: Patient Educated On: Diagnosis ROR Labs Reviewed Laboratory Results Reviewed?: Yes Result Diagrams: 06/18/19 05:01 06/18/19 05:01 Laboratory: 06/13/19 12:10 Blood Blood Culture - Final 06/13/19 12:05 Blood Blood Culture - Final WBC 5.0 X10^3/uL (3.6-10.0) 06/16/19 05:01 RBC 3.79 X10^6/uL (3.5-5.4) 06/16/19 05:01 Hgb 11.4 g/dL (12.0-16.0) L 06/16/19 05:01 Hct 35.0 % (36.0-47.0) L 06/16/19 05:01 MCV 92.3 fL (80.0-100.0) 06/16/19 05:01 MCH 30.1 pg (27.0-34.0) 06/16/19 05:01 MCHC 32.6 g/dL (33.0-35.0) L 06/16/19 05:01 RDW 13.9 % (11.6-16.5) 06/16/19 05:01 Plt Count 107 X10^3/uL (150.0-450.0) L 06/16/19 05:01 MPV 10.1 fL (7.4-11.0) 06/16/19 05:01 Neut % (Auto) 71.6 % (42.0-75.0) 06/16/19 05:01 Lymph % (Auto) 9.2 % (21.0-51.0) L 06/16/19 05:01 [place] % (Auto) 18.1 % (0.0-13.0) H 06/16/19 05:01 Eos % (Auto) 0.7 % (0.9-2.9) L 06/16/19 05:01 Baso % (Auto) 0.4 % (0.2-1.0) 06/16/19 05:01 Neut # (Auto) 3.6 x10^3/uL (2.2-4.8) 06/16/19 05:01 Lymph # (Auto) 0.5 X10^3/uL (1.3-2.9) L 06/16/19 05:01 [place] # (Auto) 0.9 x10^3/uL (0.3-0.8) H 06/16/19 05:01 Eos # (Auto) 0.0 x10^3/uL (0.0-0.2) 06/16/19 05:01 Baso # (Auto) 0.0 X10^3/uL (0.0-0.1) 06/16/19 05:01 Absolute Nucleated RBC 0.1 /100WBC 06/16/19 05:01 ESR 44 MM/HOUR (0-20) H 06/16/19 05:01 PT 23.7 SECONDS (11.8-14.3) 06/16/19 05:01 INR Target Range - 06/16/19 05:01 INR 2.20 (0.8-1.3) H 06/16/19 05:01 APTT 34.4 SECONDS (22.9-36.5) 06/13/19 11:12 PTT Comment - 06/13/19 11:12 Sodium 134 mmol/L (136-145) L 06/16/19 05:01 Corrected Sodium TNP 06/16/19 05:01 Potassium 4.7 mmol/L (3.5-5.1) 06/16/19 05:01 Chloride 101 mmol/L (98-107) 06/16/19 05:01 Carbon Dioxide 26.8 mmol/L (21-32) 06/16/19 05:01 BUN 14 mg/dL (7-18) 06/16/19 05:01 Creatinine 1.12 mg/dL (0.55-1.02) H 06/16/19 05:01 Est GFR (MDRD) Af Amer > 60 (>60) 06/16/19 05:01 Est GFR (MDRD) Non-Af 50 (>60) L 06/16/19 05:01 Glucose 97 mg/dL (65-99) 06/16/19 05:01 Lactic Acid 1.7 mmol/L (0.4-2.0) 06/13/19 12:10 Calcium 8.8 mg/dL (8.5-10.1) 06/16/19 05:01 Corrected Calcium 10.0 mg/dL (8.5-10.1) 06/16/19 05:01 Total Bilirubin 0.60 mg/dL (0.2-1.0) 06/16/19 05:01 AST 211 Units/L (15-37) H 06/16/19 05:01 ALT 392 Units/L (12-78) H 06/16/19 05:01 Alkaline Phosphatase 80 Units/L (46-116) 06/16/19 05:01 Creatine Kinase 80 Units/L (26-192) 06/14/19 04:50 CK-MB (CK-2) < 1.0 ng/mL (0-4.0) 06/14/19 04:50 CK/CKMB % Calc 1.3 % (<4) 06/14/19 04:50 Troponin I 0.02 ng/mL (0-1.5) 06/14/19 04:50 C-Reactive Protein 91.40 mg/L (0-3.0) H 06/16/19 05:01 Total Protein 6.3 g/dL (6.4-8.2) L 06/16/19 05:01 Albumin 2.5 g/dL (3.4-5.0) L 06/16/19 05:01 Globulin 3.8 g/dL (2.5-4.5) 06/16/19 05:01 Albumin/Globulin Ratio 0.7 Ratio (1.1-2.1) L 06/16/19 05:01 Specimen Type Cancelled 06/13/19 13:40 Urine Color Cancelled 06/13/19 13:40 Urine Appearance Cancelled 06/13/19 13:40 Urine pH Cancelled 06/13/19 13:40 Ur Specific [place] Cancelled 06/13/19 13:40 Urine Protein Cancelled 06/13/19 13:40 Urine Glucose (UA) Cancelled 06/13/19 13:40 Urine Ketones Cancelled 06/13/19 13:40 Urine Occult Blood Cancelled 06/13/19 13:40 Urine Nitrite Cancelled 06/13/19 13:40 Urine Bilirubin Cancelled 06/13/19 13:40 Urine Urobilinogen Cancelled 06/13/19 13:40 Ur Leukocyte Esterase Cancelled 06/13/19 13:40 Urine RBC 0-2 /HPF (0-3) 06/13/19 12:21 Urine WBC 0-2 /HPF (0-5) 06/13/19 12:21 Ur Squamous Epith Cells Few /HPF (NEGATIVE) 06/13/19 12:21 Urine Bacteria Negative /HPF (NEGATIVE) 06/13/19 12:21 Ur Culture Indicated? No/not indicated 06/13/19 12:21 XRAY XRAY Interpreted by: Radiologist and Self (CXR/RLL PNE) XRAY Findings: REPORT NOTED AND DISCUSSED WITH PATIENT. EKG Rate: 69 [place]: Normal Rhythm: NSR Block: 1 Hypertrophy: LAE and LVH ST: Nonsp Opioid Opioid Risk Tool Age (Carlos box if 16-45): No History of Preadolescent Sexual Abuse: No Total: 0 Total Score Risk Category: Low Risk Copyright: [facility] predicting aberrant behaviors Diagnosis Discharge Problem: Generalized muscle weakness RLL pneumonia Qualifiers: Pneumonia type: due to unspecified organism Qualified Code(s): J18.9 - Pneumonia, unspecified organism Fall Qualifiers: Encounter type: initial encounter Qualified Code(s): W19.XXXA - Unspecified fall, initial encounter Instructions Instructions: Fall Prevention in the Home, Adult, Nxyu-ee-[id number] Warfarin tablets Stroke Prevention, Ohgy-ys-Ohqy Hypertension, [id number] You've Been Prescribed an Antibiotic in the Hospital for an Infection - CDC (11/2017) Community-Acquired Pneumonia, Adult, Mumg-or-Eyan Forms: Patient Portal
[2019-06-13 11:32] LABS: BASOPHILS % (AUTO) 0.2 % (0.2-1.0); EOSINOPHILS % (AUTO) 0.1 % (0.9-2.9); HEMATOCRIT 39.7 % (36.0-47.0); HEMOGLOBIN 13.2 g/dL (12.0-16.0); LYMPHOCYTES # (AUTO) 0.2 X10^3/uL (1.3-2.9); LYMPHOCYTES % (AUTO) 2.4 % (21.0-51.0); MEAN CORPUSCULAR HEMOGLOBIN 30.5 pg (27.0-34.0); MEAN CORPUSCULAR HGB CONC 33.1 g/dL (33.0-35.0); MEAN CORPUSCULAR VOLUME 92.1 fL (80.0-100.0); MEAN PLATELET VOLUME 9.2 fL (7.4-11.0); MONOCYTES # (AUTO) 0.8 x10^3/uL (0.3-0.8); MONOCYTES % (AUTO) 8.6 % (0.0-13.0); NEUTROPHILS # (AUTO) 8.1 x10^3/uL (2.2-4.8); NEUTROPHILS % (AUTO) 88.7 % (42.0-75.0); PLATELET COUNT 119 X10^3/uL (150.0-450.0); RED BLOOD COUNT 4.31 X10^6/uL (3.5-5.4); RED CELL DISTRIBUTION WIDTH 14.1 % (11.6-16.5); WHITE BLOOD COUNT 9.1 X10^3/uL (3.6-10.0)
--- NOTE | 2019-06-13 11:42 | RAD ---
HISTORY: Dizziness Study: Chest AP portable Comparison: 05/23/2019 Findings: The heart is enlarged. No congestive heart failure is noted. The aorta is calcified. The lungs are well inflated. There is a right lower lobe infiltrate present consistent with pneumonia. The remainder of the lung [place] are clear. The bony thorax is unremarkable. IMPRESSION: Right lower lobe pneumonia Continued cardiomegaly but without congestive heart failure Reported By:
[2019-06-13 11:49] LABS: BLOOD UREA NITROGEN 24 mg/dL (7-18); CALCIUM 9.2 mg/dL (8.5-10.1); CARBON DIOXIDE 25.4 mmol/L (21-32); CHLORIDE 102 mmol/L (98-107); COR NA(FOR HYPERGLY) 138 mmol/L (136-145); CREATININE 1.66 mg/dL (0.55-1.02); SODIUM 137 mmol/L (136-145); TROPONIN I 0.02 ng/mL (0-1.5); eGFR NON BLACK RACES 32 (>60)
--- NOTE | 2019-06-13 11:51 | CT ---
HISTORY: Dizziness Study: CT head without contrast Comparison: 01/23/2018 Technique: Axial noncontrast images with coronal and sagittal reformats. Dose reduction procedures were used with mA/kv adjusted for body size. Findings: The ventricles, cortical sulci, and other CSF spaces are enlarged consistent with generalized atrophy likely age related. There is decreased attenuation in the periventricular white matter suggestive of small vessel vascular disease. There is an old lacunar infarct in the right cerebellar hemisphere. There is an old right parietal cortical and subcortical white matter CVA. There is no definite evidence for visible recent CVA, hemorrhage, mass lesion, or extra-axial fluid collection. The visualized sinuses are clear. The calvarium is intact. 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
[2019-06-13 11:53] LABS: ALANINE AMINOTRANSFERASE 326 Units/L (12-78); ALBUMIN 3.5 g/dL (3.4-5.0); ALKALINE PHOSPHATASE 101 Units/L (46-116); ASPARTATE AMINO TRANSFERASE 201 Units/L (15-37); CKMB % 1.1 % (<4); CREATINE KINASE 93 Units/L (26-192); CREATINE KINASE MB < 1.0 ng/mL (0-4.0); TOTAL PROTEIN 7.6 g/dL (6.4-8.2)
[2019-06-13 12:36] LABS: BILIRUBIN,URINE NEGATIVE (NEGATIVE); BLOOD/HEMOGLOBIN,URINE NEGATIVE (NEGATIVE); GLUCOSE, URINE NEGATIVE (NEGATIVE); KETONES,URINE NEGATIVE (NEGATIVE); LEUKOCYTE ESTERASE ,URINE NEGATIVE (NEGATIVE); NITRITES,URINE NEGATIVE (NEGATIVE); PROTEIN,URINE NEGATIVE (NEGATIVE); UROBILINOGEN,URINE 1+ (NORMAL)
[2019-06-13 12:44] LABS: APPEARANCE,URINE CLEAR (CLEAR); COLOR,URINE YELLOW (YELLOW); RBC,URINE 0-2 /HPF (0-3)
[2019-06-13 12:45] LABS: BACTERIA,URINE NEGATIVE /HPF (NEGATIVE); SQUAMOUS EPITHELIAL CELL,UR FEW /HPF (NEGATIVE)
[2019-06-13] MEDS ORDERED: SALINE 3% 15 ML NEB TX NEB ONE (14:00)
[2019-06-13] MEDS ORDERED: NS 1/2 1000 ML IV 1,000 ML IV ONE (14:07)
[2019-06-13] MEDS ORDERED: LEVAQUIN PREMIX IV 750 MG 750 MG/150 ML BAG IV ONE (14:07)
[2019-06-13] MEDS: NS 1/2 1000 ML IV 1,000 ML IV SCH (14:14)
[2019-06-13] MEDS: LEVAQUIN PREMIX IV 750 MG 750 MG/150 ML BAG IV SCH (14:14)
[2019-06-13] MEDS ORDERED: NS 1/2 1000 ML IV 1,000 ML IV SCH (14:24)
[2019-06-13] MEDS ORDERED: TUSSIONEX PENNKINETIC SUSP PO PRN (14:24)
[2019-06-13] MEDS ORDERED: LEVAQUIN PREMIX IV 750 MG 750 MG/150 ML BAG IV SCH (14:24)
[2019-06-13] MEDS ORDERED: ROCEPHIN VIAL 1 GRAM 1 G in NS 100 ML IV + SPIKE MINIBAG* 100 ML IV SCH (14:24)
[2019-06-13] MEDS ORDERED: VITAMIN D (1.25MG) PO SCH (14:24)
[2019-06-13] MEDS: PROVENTIL NEB TX 0.083% 2.5MG/ 3ML NEB SCH ×2 (17:23→21:42)
[2019-06-13] MEDS: ROCEPHIN VIAL 1 GRAM 1 G in NS 100 ML IV + SPIKE MINIBAG* 100 ML IV SCH (18:19)
[2019-06-13] MEDS: ROBITUSSIN DM PO SCH ×2 (18:23→20:43)
[2019-06-13] MEDS: COZAAR PO SCH (20:42)
[2019-06-13] MEDS: COLACE CAP 100 MG PO SCH (20:43)
[2019-06-13] MEDS: MILK OF MAGNESIA PO SCH (20:43)
[2019-06-13] MEDS ORDERED: CORDARONE TAB 200 MG PO SCH (21:00)
[2019-06-14 05:06] LABS: BASOPHILS % (AUTO) 0.2 % (0.2-1.0); EOSINOPHILS % (AUTO) 0.2 % (0.9-2.9); HEMATOCRIT 34.7 % (36.0-47.0); HEMOGLOBIN 11.6 g/dL (12.0-16.0); LYMPHOCYTES # (AUTO) 0.5 X10^3/uL (1.3-2.9); LYMPHOCYTES % (AUTO) 6.1 % (21.0-51.0); MEAN CORPUSCULAR HEMOGLOBIN 30.5 pg (27.0-34.0); MEAN CORPUSCULAR HGB CONC 33.3 g/dL (33.0-35.0); MEAN CORPUSCULAR VOLUME 91.8 fL (80.0-100.0); MEAN PLATELET VOLUME 9.4 fL (7.4-11.0); MONOCYTES # (AUTO) 0.8 x10^3/uL (0.3-0.8); MONOCYTES % (AUTO) 10.2 % (0.0-13.0); NEUTROPHILS # (AUTO) 6.9 x10^3/uL (2.2-4.8); NEUTROPHILS % (AUTO) 83.3 % (42.0-75.0); PLATELET COUNT 104 X10^3/uL (150.0-450.0); RED BLOOD COUNT 3.78 X10^6/uL (3.5-5.4); RED CELL DISTRIBUTION WIDTH 14.1 % (11.6-16.5); WHITE BLOOD COUNT 8.2 X10^3/uL (3.6-10.0)
[2019-06-14 05:19] LABS: ALBUMIN 2.7 g/dL (3.4-5.0); CALCIUM 8.3 mg/dL (8.5-10.1); CARBON DIOXIDE 25.8 mmol/L (21-32); COR CA(FOR HYPOALB) 9.3 mg/dL (8.5-10.1); CREATININE 1.6 mg/dL (0.55-1.02); TOTAL PROTEIN 6.5 g/dL (6.4-8.2)
[2019-06-14] MEDS ORDERED: NS 1/2 1000 ML IV 1,000 ML IV ONE ×2 (05:21→20:19)
[2019-06-14] MEDS: NS 1/2 1000 ML IV 1,000 ML IV SCH ×3 (05:24→20:43)
[2019-06-14 05:34] LABS: CKMB % 1.3 % (<4); CREATINE KINASE 80 Units/L (26-192); CREATINE KINASE MB < 1.0 ng/mL (0-4.0); TROPONIN I 0.02 ng/mL (0-1.5)
--- NOTE | 2019-06-14 07:51 | RAD ---
Chest, 1 view Indication: Shortness of breath Comparison: 06/13/2019 Findings: There is worsened right basilar infiltrate. The lungs are otherwise essentially clear. No significant pleural effusion. Stable cardiomegaly. Impression: Worsening right basilar pneumonia. Recommend continued radiographic follow-up to resolution to exclude underlying lesion. Reported By:
[2019-06-14] MEDS: PROVENTIL NEB TX 0.083% 2.5MG/ 3ML NEB SCH ×4 (08:27→21:35)
[2019-06-14] MEDS: ROCEPHIN VIAL 1 GRAM 1 G in NS 100 ML IV + SPIKE MINIBAG* 100 ML IV SCH (09:00)
[2019-06-14] MEDS ORDERED: COUMADIN TAB 3 MG PO SCH (09:00)
[2019-06-14] MEDS: OXYBUTYNIN CHLORIDE ER PO SCH (09:38)
[2019-06-14] MEDS: ROBITUSSIN DM PO SCH ×4 (09:39→20:45)
[2019-06-14] MEDS: MILK OF MAGNESIA PO SCH ×2 (09:39→20:44)
[2019-06-14] MEDS: LEVAQUIN PREMIX IV 750 MG 750 MG/150 ML BAG IV SCH (10:00)
[2019-06-14] MEDS: ALDACTONE TAB 25 MG PO SCH (10:30)
[2019-06-14] MEDS: NORVASC TAB 5 MG PO SCH (10:31)
--- NOTE | 2019-06-14 11:11 | DR.H&P ---
H&P - History & Physical for Day of: H&P Date: 06/13/19 - Chief Complaint Chief Complaint: WEAKNESS, FALLS, SOB - History of Present Illness History of Present Illness: IS A 78 YEAR OLD PATIENT OF OURS WHO PRESENTED TO THE ER WITH COMPLAINTS OF GENERALIZED WEAKNESS, FALLS, AND SHORTNESS OF BREATH. ON ARRIVAL TO THE ER, VITALS WERE 99.8-69-18-95%-136/89. LABS WERE OBTAINED. ABNORMAL LAB VALUES INCLUDE THE FOLLOWING: PLT COUNT 119, INR 2.07, BUN 24, CREATININE 1.66, GLUCOSE 147, AST 201, ALT 326. BLOOD CULTURES OBTAINED. A BRAIN CT WAS OBTAINED AND REVEALED: No acute intracranial abnormality. Generalized atrophy likely age related. 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 A CHEST XRAY WAS OBTAINED AND REVEALED: Right lower lobe pneumonia. Continued cardiomegaly but without congestive heart failure. EKG REVEALED: SINUS RHYTHM WITH HR 69. SHE WAS ADMITTED TO THE HOSPITAL FOR FURTHER EVALUATION AND TREATMENT OF RIGHT LOWER LOBE PNEUMONIA AND GENERALIZED WEAKNESS. SHE WAS STARTED ON 1/2NS AT 80ML/HR, LEVAQUIN 750MG IV DAILY, ROCEPHIN 1G IV DAILY, AND RESPIRATORY TREATMENTS. OTHERWISE, WE PLAN TO FOLLOW UP WITH AM LABS AND CHEST XRAY AND CONTINUE TO MONITOR. 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 - Family History Family Medical History: Diabetes Mellitus, Cancer, [place], Coronary Artery Disease, Hypertension - Social History Does patient currently use any type of tobacco product: No Have you used tobacco products in the last 12 months: No Type of Tobacco Use: None Does any household member use tobacco: No Alcohol Use: None Drug Use: None - Medications Home Medications: No Known Drug Allergies Allergy (Verified 06/13/19 10:56) CONTINUE taking the following medications amiodarone 200 mg PO BID 06/13/19 [History] amlodipine [Norvasc] 5 mg PO DAILY 06/13/19 [History] - Review of Systems Constitutional: Fever, Weakness Eyes: No Symptoms Reported ENT: No Symptoms Reported Respiratory: Cough, Shortness of Breath Cardiovascular: No Symptoms Reported Gastrointestinal: No Symptoms Reported Genitourinary: No Symptoms Reported Musculoskeletal: No Symptoms Reported Skin: No Symptoms Reported Neurological: See HPI, Weakness - Physical Exam Vital Signs: Temperature 99.3 F Pulse Rate [Left Brachial] 48 Pulse Rate 55 Respiratory Rate 18 Blood Pressure [Left Arm] 119/51 Blood Pressure [Right Arm] 100/52 Blood Pressure 124/59 O2 Sat by Pulse Oximetry 99 Oriented: Normal Eyes: Normal Ear: Normal Nose: Normal Throat: Normal Respiratory: Wheezes Throughout Cardiovascular: Normal. negative: S3, S4, Murmur : Normal Auscultation: Bowel Sounds: Normal Palpation: Normal Tenderness: Normal Skin: Normal Musculoskeletal: Normal Psychiatric: Normal Mood Description: Calm Affect: Normal Speech Pattern: Clear - Assessment/Plan (1) Pneumonia Qualifiers: Pneumonia type: due to unspecified organism Laterality: right Lung location: lower lobe of lung Qualified Code(s): J18.1 - Lobar pneumonia, unspecified organism Status: Acute Plan: 1/2NS AT 80ML/HR, LEVAQUIN 750MG IV DAILY, ROCEPHIN 1G IV DAILY, RESPIRATORY [place] (2) Generalized weakness Status: Acute - Allergies Allergies/Adverse Reactions: Allergies Allergy/AdvReac Type Severity Reaction Status Date / Time No Known Drug Allergies Allergy Verified 06/13/19 10:56
[2019-06-14] MEDS: COZAAR PO SCH (20:48)
[2019-06-14] MEDS: COLACE CAP 100 MG PO SCH (20:48)
[2019-06-15] MEDS ORDERED: NS 1/2 1000 ML IV 1,000 ML IV ONE ×2 (04:44→15:54)
[2019-06-15 05:29] LABS: BASOPHILS % (AUTO) 0.2 % (0.2-1.0); EOSINOPHILS % (AUTO) 0.3 % (0.9-2.9); HEMATOCRIT 35.6 % (36.0-47.0); HEMOGLOBIN 11.9 g/dL (12.0-16.0); LYMPHOCYTES # (AUTO) 0.4 X10^3/uL (1.3-2.9); LYMPHOCYTES % (AUTO) 6.1 % (21.0-51.0); MEAN CORPUSCULAR HEMOGLOBIN 30.6 pg (27.0-34.0); MEAN CORPUSCULAR HGB CONC 33.4 g/dL (33.0-35.0); MEAN CORPUSCULAR VOLUME 91.7 fL (80.0-100.0); MONOCYTES # (AUTO) 0.9 x10^3/uL (0.3-0.8); MONOCYTES % (AUTO) 13.2 % (0.0-13.0); NEUTROPHILS # (AUTO) 5.6 x10^3/uL (2.2-4.8); NEUTROPHILS % (AUTO) 80.2 % (42.0-75.0); PLATELET COUNT 105 X10^3/uL (150.0-450.0); RED BLOOD COUNT 3.88 X10^6/uL (3.5-5.4); RED CELL DISTRIBUTION WIDTH 13.8 % (11.6-16.5); WHITE BLOOD COUNT 6.9 X10^3/uL (3.6-10.0)
[2019-06-15 05:46] LABS: ALANINE AMINOTRANSFERASE 466 Units/L (12-78); ALBUMIN 2.7 g/dL (3.4-5.0); ALKALINE PHOSPHATASE 83 Units/L (46-116); ASPARTATE AMINO TRANSFERASE 253 Units/L (15-37); BLOOD UREA NITROGEN 15 mg/dL (7-18); CALCIUM 8.4 mg/dL (8.5-10.1); CARBON DIOXIDE 25.4 mmol/L (21-32); CHLORIDE 100 mmol/L (98-107); COR CA(FOR HYPOALB) 9.4 mg/dL (8.5-10.1); CREATININE 1.25 mg/dL (0.55-1.02); SODIUM 134 mmol/L (136-145); TOTAL PROTEIN 6.6 g/dL (6.4-8.2); eGFR NON BLACK RACES 44 (>60)
[2019-06-15 06:00] LABS: ERYTHROCYTE SEDIMENTATION RATE 46 MM/HOUR (0-20)
[2019-06-15] MEDS: NS 1/2 1000 ML IV 1,000 ML IV SCH ×3 (06:13→15:55)
--- NOTE | 2019-06-15 06:19 | RAD ---
HISTORY: Shortness of breath Study: Chest AP portable Comparison: 06/14/2019 Findings: The heart remains enlarged. No congestive heart failure is noted. The aorta is calcified. Right basilar infiltrate is unchanged. The remainder of the lung goodwin are clear. No definite pleural effusions are identified. The bony thorax is unremarkable. IMPRESSION: Continued cardiomegaly without congestive heart failure No change right basilar lung infiltrate Reported By:
[2019-06-15] MEDS: ROCEPHIN VIAL 1 GRAM 1 G in NS 100 ML IV + SPIKE MINIBAG* 100 ML IV SCH (08:53)
[2019-06-15] MEDS: ROBITUSSIN DM PO SCH ×4 (08:54→21:30)
[2019-06-15] MEDS: MILK OF MAGNESIA PO SCH ×2 (08:54→21:41)
[2019-06-15] MEDS: OXYBUTYNIN CHLORIDE ER PO SCH (08:55)
[2019-06-15] MEDS: NORVASC TAB 5 MG PO SCH (08:55)
[2019-06-15] MEDS: ALDACTONE TAB 25 MG PO SCH (08:55)
[2019-06-15] MEDS: PROVENTIL NEB TX 0.083% 2.5MG/ 3ML NEB SCH ×4 (09:18→20:49)
[2019-06-15] MEDS: LEVAQUIN PREMIX IV 750 MG 750 MG/150 ML BAG IV SCH (10:08)
--- NOTE | 2019-06-15 20:40 | PCM.PROG ---
Progress Note - Progress Note for Day of Date of Exam: 06/14/19 - Past Medical Family Social History Past Med/Fam/Surg Hx: No changes since H&P Allergies: Allergies No Known Drug Allergies Allergy (Verified 06/13/19 10:56) - Review of Systems ROS: No change since H&P - Vital Signs and I&O's Vital Signs: Temperature 99.0 F Pulse Rate [Right Brachial] 62 Pulse Rate [Left Brachial] 64 Pulse Rate 62 Respiratory Rate 20 Blood Pressure [Left Arm] 167/79 Blood Pressure [Right Arm] 97/50 Blood Pressure 124/59 O2 Sat by Pulse Oximetry 94 Intake and Output: Intake & Output 06/13/19 06/14/19 06/15/19 06/16/19 11:59 11:59 11:59 11:59 Intake Total 1879 / 0 Balance 1879 - Physical Exam Oriented: Normal Eyes: Normal Ear: Normal Nose: Normal Throat: Normal Respiratory: Generalized, Wheezes Cardiovascular: Normal. negative: S3, S4, Murmur : Normal Auscultation: Bowel Sounds: Normal Palpation: Normal Tenderness: Normal Skin: Normal Musculoskeletal: Normal Psychiatric: Normal Mood Description: Calm Affect: Normal Speech Pattern: Clear, Appropriate - Laboratory and Diagnostics Result Diagrams: 06/15/19 05:04 06/15/19 05:04 Labs: 06/13/19 12:10 Blood Blood Culture - Preliminary 06/13/19 12:05 Blood Blood Culture - Preliminary Laboratory WBC 6.9 X10^3/uL (3.6-10.0) 06/15/19 05:04 RBC 3.88 X10^6/uL (3.5-5.4) 06/15/19 05:04 Hgb 11.9 g/dL (12.0-16.0) L 06/15/19 05:04 Hct 35.6 % (36.0-47.0) L 06/15/19 05:04 MCV 91.7 fL (80.0-100.0) 06/15/19 05:04 MCH 30.6 pg (27.0-34.0) 06/15/19 05:04 MCHC 33.4 g/dL (33.0-35.0) 06/15/19 05:04 RDW 13.8 % (11.6-16.5) 06/15/19 05:04 Plt Count 105 X10^3/uL (150.0-450.0) L 06/15/19 05:04 MPV 10.0 fL (7.4-11.0) 06/15/19 05:04 Neut % (Auto) 80.2 % (42.0-75.0) H 06/15/19 05:04 Lymph % (Auto) 6.1 % (21.0-51.0) L 06/15/19 05:04 [place] % (Auto) 13.2 % (0.0-13.0) H 06/15/19 05:04 Eos % (Auto) 0.3 % (0.9-2.9) L 06/15/19 05:04 Baso % (Auto) 0.2 % (0.2-1.0) 06/15/19 05:04 Neut # (Auto) 5.6 x10^3/uL (2.2-4.8) H 06/15/19 05:04 Lymph # (Auto) 0.4 X10^3/uL (1.3-2.9) L 06/15/19 05:04 [place] # (Auto) 0.9 x10^3/uL (0.3-0.8) H 06/15/19 05:04 Eos # (Auto) 0.0 x10^3/uL (0.0-0.2) 06/15/19 05:04 Baso # (Auto) 0.0 X10^3/uL (0.0-0.1) 06/15/19 05:04 Absolute Nucleated RBC 0.0 /100WBC 06/15/19 05:04 ESR 46 MM/HOUR (0-20) H 06/15/19 05:04 PT 25.3 SECONDS (11.8-14.3) 06/15/19 05:04 INR Target Range - 06/15/19 05:04 INR 2.39 (0.8-1.3) H 06/15/19 05:04 APTT 34.4 SECONDS (22.9-36.5) 06/13/19 11:12 PTT Comment - 06/13/19 11:12 Sodium 134 mmol/L (136-145) L 06/15/19 05:04 Corrected Sodium TNP 06/15/19 05:04 Potassium 4.5 mmol/L (3.5-5.1) 06/15/19 05:04 Chloride 100 mmol/L (98-107) 06/15/19 05:04 Carbon Dioxide 25.4 mmol/L (21-32) 06/15/19 05:04 BUN 15 mg/dL (7-18) 06/15/19 05:04 Creatinine 1.25 mg/dL (0.55-1.02) H 06/15/19 05:04 Est GFR (MDRD) Af Amer 53 (>60) L 06/15/19 05:04 Est GFR (MDRD) Non-Af 44 (>60) L 06/15/19 05:04 Glucose 106 mg/dL (65-99) H 06/15/19 05:04 Lactic Acid 1.7 mmol/L (0.4-2.0) 06/13/19 12:10 Calcium 8.4 mg/dL (8.5-10.1) L 06/15/19 05:04 Corrected Calcium 9.4 mg/dL (8.5-10.1) 06/15/19 05:04 Total Bilirubin 0.90 mg/dL (0.2-1.0) 06/15/19 05:04 AST 253 Units/L (15-37) H 06/15/19 05:04 ALT 466 Units/L (12-78) H 06/15/19 05:04 Alkaline Phosphatase 83 Units/L (46-116) 06/15/19 05:04 Creatine Kinase 80 Units/L (26-192) 06/14/19 04:50 CK-MB (CK-2) < 1.0 ng/mL (0-4.0) 06/14/19 04:50 CK/CKMB % Calc 1.3 % (<4) 06/14/19 04:50 Troponin I 0.02 ng/mL (0-1.5) 06/14/19 04:50 C-Reactive Protein 102.80 mg/L (0-3.0) H 06/15/19 05:04 Total Protein 6.6 g/dL (6.4-8.2) 06/15/19 05:04 Albumin 2.7 g/dL (3.4-5.0) L 06/15/19 05:04 Globulin 3.9 g/dL (2.5-4.5) 06/15/19 05:04 Albumin/Globulin Ratio 0.7 Ratio (1.1-2.1) L 06/15/19 05:04 Specimen Type Cancelled 06/13/19 13:40 Urine Color Cancelled 06/13/19 13:40 Urine Appearance Cancelled 06/13/19 13:40 Urine pH Cancelled 06/13/19 13:40 Ur Specific [place] Cancelled 06/13/19 13:40 Urine Protein Cancelled 06/13/19 13:40 Urine Glucose (UA) Cancelled 06/13/19 13:40 Urine Ketones Cancelled 06/13/19 13:40 Urine Occult Blood Cancelled 06/13/19 13:40 Urine Nitrite Cancelled 06/13/19 13:40 Urine Bilirubin Cancelled 06/13/19 13:40 Urine Urobilinogen Cancelled 06/13/19 13:40 Ur Leukocyte Esterase Cancelled 06/13/19 13:40 Urine RBC 0-2 /HPF (0-3) 06/13/19 12:21 Urine WBC 0-2 /HPF (0-5) 06/13/19 12:21 Ur Squamous Epith Cells Few /HPF (NEGATIVE) 06/13/19 12:21 Urine Bacteria Negative /HPF (NEGATIVE) 06/13/19 12:21 Ur Culture Indicated? No/not indicated 06/13/19 12:21 - Plan (1) Pneumonia Status: Inactive Qualifiers: Pneumonia type: due to unspecified organism Laterality: right Lung location: lower lobe of lung Qualified Code(s): J18.1 - Lobar pneumonia, unspecified organism Plan: 1/2NS AT 80ML/HR, LEVAQUIN 750MG IV DAILY, ROCEPHIN 1G IV DAILY, RESPIRATORY [place] (2) Generalized weakness Status: Acute
--- NOTE | 2019-06-15 20:46 | PCM.PROG ---
Progress Note - Progress Note for Day of Date of Exam: 06/15/19 - Subjective Subjective: WAS ADMITTED FOR RIGHT LOWER LOBE PNEUMONIA AND GENERALIZED WEAKNESS. SHE CONTINUES WITH COMPLAINTS OF SHORTNESS OF BREATH AND COUGH. ON EXAMINATION, HEART IS REGULAR IN RATE AND RHYTHM. BILATERAL LUNGS ARE NOTED WITH SCATTERED WHEEZING THROUGHOUT. ABDOMEN IS ROUND, SOFT, AND NON-TENDER WITH NORMAL BOWEL SOUNDS NOTED IN ALL QUADRANTS. HER VITALS THIS MORNING ARE: 97.6-63-20-96%-126/67. LABS WERE OBTAINED. ABNORMAL LAB VALUES INCLUDE THE FOLLOWING: HGB 11.9, HCT 35.6, PLT COUNT 105, INR 2.39, SODIUM 134, CREATININE 1.25, GLUCOSE 106, CALCIUM 8.4, AST 253, ALT 466, CRP 102.80, ALBUMIN 2.7. BLOOD CULTURES ARE PENDING. A CHEST XRAY WAS OBTAINED AND REVEALED: Continued cardiomegaly without congestive heart failure. SHE IS CURRENTLY RECEIVING 1/2NS AT 80ML/HR, LEVAQUIN 750MG IV DAILY, ROCEPHIN 1G IV DAILY, AND RESPIRATORY TREATMENTS. WE WILL DECREASE IV FLUIDS TO KVO. OTHERWISE, WE PLAN TO FOLLOW UP WITH AM LABS AND CONTINUE TO MONITOR. - Past Medical Family Social History Past Med/Fam/Surg Hx: No changes since H&P Allergies: Allergies No Known Drug Allergies Allergy (Verified 06/13/19 10:56) - Review of Systems ROS: No change since H&P - Vital Signs and I&O's Vital Signs: Temperature 99.0 F Pulse Rate [Right Brachial] 62 Pulse Rate [Left Brachial] 64 Pulse Rate 62 Respiratory Rate 20 Blood Pressure [Left Arm] 167/79 Blood Pressure [Right Arm] 97/50 Blood Pressure 124/59 O2 Sat by Pulse Oximetry 94 Intake and Output: Intake & Output 06/13/19 06/14/19 06/15/19 06/16/19 11:59 11:59 11:59 11:59 Intake Total 1879 Balance 1879 - Physical Exam Oriented: Normal Eyes: Normal Ear: Normal Nose: Normal Throat: Normal Respiratory: Generalized, Wheezes Cardiovascular: Normal. negative: S3, S4, Murmur : Normal Auscultation: Bowel Sounds: Normal Palpation: Normal Tenderness: Normal Skin: Normal Musculoskeletal: Normal Psychiatric: Normal Mood Description: Calm Affect: Normal Speech Pattern: Clear, Appropriate - Laboratory and Diagnostics Result Diagrams: 06/15/19 05:04 06/15/19 05:04 Labs: 06/13/19 12:10 Blood Blood Culture - Preliminary 06/13/19 12:05 Blood Blood Culture - Preliminary Laboratory WBC 6.9 X10^3/uL (3.6-10.0) 06/15/19 05:04 RBC 3.88 X10^6/uL (3.5-5.4) 06/15/19 05:04 Hgb 11.9 g/dL (12.0-16.0) L 06/15/19 05:04 Hct 35.6 % (36.0-47.0) L 06/15/19 05:04 MCV 91.7 fL (80.0-100.0) 06/15/19 05:04 MCH 30.6 pg (27.0-34.0) 06/15/19 05:04 MCHC 33.4 g/dL (33.0-35.0) 06/15/19 05:04 RDW 13.8 % (11.6-16.5) 06/15/19 05:04 Plt Count 105 X10^3/uL (150.0-450.0) L 06/15/19 05:04 MPV 10.0 fL (7.4-11.0) 06/15/19 05:04 Neut % (Auto) 80.2 % (42.0-75.0) H 06/15/19 05:04 Lymph % (Auto) 6.1 % (21.0-51.0) L 06/15/19 05:04 [place] % (Auto) 13.2 % (0.0-13.0) H 06/15/19 05:04 Eos % (Auto) 0.3 % (0.9-2.9) L 06/15/19 05:04 Baso % (Auto) 0.2 % (0.2-1.0) 06/15/19 05:04 Neut # (Auto) 5.6 x10^3/uL (2.2-4.8) H 06/15/19 05:04 Lymph # (Auto) 0.4 X10^3/uL (1.3-2.9) L 06/15/19 05:04 [place] # (Auto) 0.9 x10^3/uL (0.3-0.8) H 06/15/19 05:04 Eos # (Auto) 0.0 x10^3/uL (0.0-0.2) 06/15/19 05:04 Baso # (Auto) 0.0 X10^3/uL (0.0-0.1) 06/15/19 05:04 Absolute Nucleated RBC 0.0 /100WBC 06/15/19 05:04 ESR 46 MM/HOUR (0-20) H 06/15/19 05:04 PT 25.3 SECONDS (11.8-14.3) 06/15/19 05:04 INR Target Range - 06/15/19 05:04 INR 2.39 (0.8-1.3) H 06/15/19 05:04 APTT 34.4 SECONDS (22.9-36.5) 06/13/19 11:12 PTT Comment - 06/13/19 11:12 Sodium 134 mmol/L (136-145) L 06/15/19 05:04 Corrected Sodium TNP 06/15/19 05:04 Potassium 4.5 mmol/L (3.5-5.1) 06/15/19 05:04 Chloride 100 mmol/L (98-107) 06/15/19 05:04 Carbon Dioxide 25.4 mmol/L (21-32) 06/15/19 05:04 BUN 15 mg/dL (7-18) 06/15/19 05:04 Creatinine 1.25 mg/dL (0.55-1.02) H 06/15/19 05:04 Est GFR (MDRD) Af Amer 53 (>60) L 06/15/19 05:04 Est GFR (MDRD) Non-Af 44 (>60) L 06/15/19 05:04 Glucose 106 mg/dL (65-99) H 06/15/19 05:04 Lactic Acid 1.7 mmol/L (0.4-2.0) 06/13/19 12:10 Calcium 8.4 mg/dL (8.5-10.1) L 06/15/19 05:04 Corrected Calcium 9.4 mg/dL (8.5-10.1) 06/15/19 05:04 Total Bilirubin 0.90 mg/dL (0.2-1.0) 06/15/19 05:04 AST 253 Units/L (15-37) H 06/15/19 05:04 ALT 466 Units/L (12-78) H 06/15/19 05:04 Alkaline Phosphatase 83 Units/L (46-116) 06/15/19 05:04 Creatine Kinase 80 Units/L (26-192) 06/14/19 04:50 CK-MB (CK-2) < 1.0 ng/mL (0-4.0) 06/14/19 04:50 CK/CKMB % Calc 1.3 % (<4) 06/14/19 04:50 Troponin I 0.02 ng/mL (0-1.5) 06/14/19 04:50 C-Reactive Protein 102.80 mg/L (0-3.0) H 06/15/19 05:04 Total Protein 6.6 g/dL (6.4-8.2) 06/15/19 05:04 Albumin 2.7 g/dL (3.4-5.0) L 06/15/19 05:04 Globulin 3.9 g/dL (2.5-4.5) 06/15/19 05:04 Albumin/Globulin Ratio 0.7 Ratio (1.1-2.1) L 06/15/19 05:04 Specimen Type Cancelled 06/13/19 13:40 Urine Color Cancelled 06/13/19 13:40 Urine Appearance Cancelled 06/13/19 13:40 Urine pH Cancelled 06/13/19 13:40 Ur Specific [place] Cancelled 06/13/19 13:40 Urine Protein Cancelled 06/13/19 13:40 Urine Glucose (UA) Cancelled 06/13/19 13:40 Urine Ketones Cancelled 06/13/19 13:40 Urine Occult Blood Cancelled 06/13/19 13:40 Urine Nitrite Cancelled 06/13/19 13:40 Urine Bilirubin Cancelled 06/13/19 13:40 Urine Urobilinogen Cancelled 06/13/19 13:40 Ur Leukocyte Esterase Cancelled 06/13/19 13:40 Urine RBC 0-2 /HPF (0-3) 06/13/19 12:21 Urine WBC 0-2 /HPF (0-5) 06/13/19 12:21 Ur Squamous Epith Cells Few /HPF (NEGATIVE) 06/13/19 12:21 Urine Bacteria Negative /HPF (NEGATIVE) 06/13/19 12:21 Ur Culture Indicated? No/not indicated 06/13/19 12:21 - Plan (1) Pneumonia Status: Inactive Qualifiers: Pneumonia type: due to unspecified organism Laterality: right Lung location: lower lobe of lung Qualified Code(s): J18.1 - Lobar pneumonia, unspecified organism Plan: 1/2NS AT 30ML/HR, LEVAQUIN 750MG IV DAILY, ROCEPHIN 1G IV DAILY, RESPIRATO RY [place] (2) Generalized weakness Status: Acute
[2019-06-15] MEDS: COLACE CAP 100 MG PO SCH (21:30)
[2019-06-15] MEDS: COZAAR PO SCH (21:32)
[2019-06-15] MEDS: COUMADIN TAB 3 MG PO SCH (21:33)
[2019-06-16] MEDS: NS 1/2 1000 ML IV 1,000 ML IV SCH ×3 (01:11→21:19)
[2019-06-16 05:23] LABS: BASOPHILS % (AUTO) 0.4 % (0.2-1.0); EOSINOPHILS % (AUTO) 0.7 % (0.9-2.9); HEMOGLOBIN 11.4 g/dL (12.0-16.0); LYMPHOCYTES # (AUTO) 0.5 X10^3/uL (1.3-2.9); LYMPHOCYTES % (AUTO) 9.2 % (21.0-51.0); MEAN CORPUSCULAR HEMOGLOBIN 30.1 pg (27.0-34.0); MEAN CORPUSCULAR HGB CONC 32.6 g/dL (33.0-35.0); MEAN CORPUSCULAR VOLUME 92.3 fL (80.0-100.0); MEAN PLATELET VOLUME 10.1 fL (7.4-11.0); MONOCYTES # (AUTO) 0.9 x10^3/uL (0.3-0.8); MONOCYTES % (AUTO) 18.1 % (0.0-13.0); NEUTROPHILS # (AUTO) 3.6 x10^3/uL (2.2-4.8); NEUTROPHILS % (AUTO) 71.6 % (42.0-75.0); PLATELET COUNT 107 X10^3/uL (150.0-450.0); RED BLOOD COUNT 3.79 X10^6/uL (3.5-5.4); RED CELL DISTRIBUTION WIDTH 13.9 % (11.6-16.5)
[2019-06-16 05:44] LABS: ALANINE AMINOTRANSFERASE 392 Units/L (12-78); ALBUMIN 2.5 g/dL (3.4-5.0); ALKALINE PHOSPHATASE 80 Units/L (46-116); ASPARTATE AMINO TRANSFERASE 211 Units/L (15-37); BLOOD UREA NITROGEN 14 mg/dL (7-18); CALCIUM 8.8 mg/dL (8.5-10.1); CARBON DIOXIDE 26.8 mmol/L (21-32); CHLORIDE 101 mmol/L (98-107); CREATININE 1.12 mg/dL (0.55-1.02); SODIUM 134 mmol/L (136-145); TOTAL PROTEIN 6.3 g/dL (6.4-8.2); eGFR NON BLACK RACES 50 (>60)
[2019-06-16 06:03] LABS: ERYTHROCYTE SEDIMENTATION RATE 44 MM/HOUR (0-20)
--- NOTE | 2019-06-16 06:17 | RAD ---
HISTORY: Shortness of breath Study: Chest AP portable Comparison: 06/15/2019 Findings: The heart remains enlarged. No congestive heart failure is noted. The aorta is calcified. Right basilar infiltrate is unchanged. The remainder of the lung goodwin are clear. No definite pleural effusions are identified. The bony thorax is unremarkable. IMPRESSION: Continued cardiomegaly without congestive heart failure No change right basilar lung infiltrate Reported By:
[2019-06-16] MEDS: ROBITUSSIN DM PO SCH ×4 (09:16→20:19)
[2019-06-16] MEDS: ROCEPHIN VIAL 1 GRAM 1 G in NS 100 ML IV + SPIKE MINIBAG* 100 ML IV SCH (09:16)
[2019-06-16] MEDS: PROVENTIL NEB TX 0.083% 2.5MG/ 3ML NEB SCH ×4 (09:18→21:07)
[2019-06-16] MEDS: MILK OF MAGNESIA PO SCH ×2 (09:19→21:19)
[2019-06-16] MEDS: NORVASC TAB 5 MG PO SCH (09:19)
[2019-06-16] MEDS: ALDACTONE TAB 25 MG PO SCH (09:19)
[2019-06-16] MEDS: OXYBUTYNIN CHLORIDE ER PO SCH (09:19)
[2019-06-16] MEDS: LEVAQUIN PREMIX IV 750 MG 750 MG/150 ML BAG IV SCH (09:55)
[2019-06-16] MEDS: SOLU-Medrol 40 MG VIAL IVP SCH ×3 (10:52→21:33)
--- NOTE | 2019-06-16 11:01 | PCM.PROG ---
Progress Note - Progress Note for Day of Date of Exam: 06/16/19 - Subjective Subjective: WAS ADMITTED FOR RIGHT LOWER LOBE PNEUMONIA AND GENERALIZED WEAKNESS. SHE CONTINUES WITH COMPLAINTS OF SHORTNESS OF BREATH AND COUGH TODAY. SHE REPORTS WORSENING OF SYMPTOMS. PATIENT REPORTS FEELING IF THERE IS SOMETHING SHE NEEDS TO COUGH UP, BUT IS UNABLE TO. SHE REPORTS SEVERE WEAKNESS AND DECREASED APPETITE. ON EXAMINATION, HEART IS REGULAR IN RATE AND RHYTHM. BILATERAL LUNGS ARE NOTED WITH SCATTERED WHEEZING AND RHONCHI IN BILATERAL LUNGS THROUGHOUT. ABDOMEN IS ROUND, SOFT, AND NON-TENDER WITH NORMAL BOWEL SOUNDS NOTED IN ALL QUADRANTS. HER VITALS THIS MORNING ARE: 98.9-51-18-97%-131/60. LABS WERE OBTAINED. ABNORMAL LAB VALUES INCLUDE THE FOLLOWING: HGB 11.4, HCT 35.0, PLT COUNT 107, INR 2.20, SODIUM 134, CREATININE 1.12, AST 211, ALT 392, CRP 91.40, TOTAL PROTEIN 6.3, ALBUMIN 2.5. BLOOD CULTURES ARE PENDING. A CHEST XRAY WAS OBTAINED AND REVEALED: The heart remains enlarged. No congestive heart failure is noted. The aorta is calcified. Right basilar infiltrate is unchanged. The remainder of the lung goodwin are clear. No definite pleural effusions are identified. The bony thorax is unremarkable. SHE IS CURRENTLY RECEIVING 1/2NS AT 30ML/HR, LEVAQUIN 750MG IV DAILY, ROCEPHIN 1G IV DAILY, AND RESPIRATORY TREATMENTS. TODAY, WE WILL ADD SOLU-MEDROL 20MG IV Q8H, MUCOMYST TO NEB TX, AND THE SMART VEST. OTHERWISE, WE PLAN TO FOLLOW UP WITH AM LABS AND CONTINUE TO MONITOR. - Past Medical Family Social History Past Med/Fam/Surg Hx: No changes since H&P Allergies: Allergies No Known Drug Allergies Allergy (Verified 06/13/19 10:56) - Review of Systems ROS: No change since H&P - Vital Signs and I&O's Vital Signs: Temperature 98.9 F Pulse Rate [Right Brachial] 51 Pulse Rate [Left Brachial] 55 Pulse Rate 50 Respiratory Rate 20 Blood Pressure [Left Arm] 167/79 Blood Pressure [Right Arm] 131/60 Blood Pressure 124/59 O2 Sat by Pulse Oximetry 95 Intake and Output: Intake & Output 06/13/19 06/14/19 06/15/19 06/16/19 11:59 11:59 11:59 11:59 Intake Total 1880 / 1880 1990 / 1990 1110 / 1110 Balance 1879 - Physical Exam Oriented: Normal Eyes: Normal Ear: Normal Nose: Normal Throat: Normal Respiratory: Generalized, Wheezes, Rhonchi Cardiovascular: Bradycardia. negative: S3, S4, Murmur : Normal Auscultation: Bowel Sounds: Normal Palpation: Normal Tenderness: Normal Skin: Normal Musculoskeletal: Normal Psychiatric: Normal Mood Description: Calm Affect: Normal Speech Pattern: Clear, Appropriate - Laboratory and Diagnostics Result Diagrams: 06/16/19 05:01 06/16/19 05:01 Labs: 06/13/19 12:10 Blood Blood Culture - Preliminary 06/13/19 12:05 Blood Blood Culture - Preliminary Laboratory WBC 5.0 X10^3/uL (3.6-10.0) 06/16/19 05:01 RBC 3.79 X10^6/uL (3.5-5.4) 06/16/19 05:01 Hgb 11.4 g/dL (12.0-16.0) L 06/16/19 05:01 Hct 35.0 % (36.0-47.0) L 06/16/19 05:01 MCV 92.3 fL (80.0-100.0) 06/16/19 05:01 MCH 30.1 pg (27.0-34.0) 06/16/19 05:01 MCHC 32.6 g/dL (33.0-35.0) L 06/16/19 05:01 RDW 13.9 % (11.6-16.5) 06/16/19 05:01 Plt Count 107 X10^3/uL (150.0-450.0) L 06/16/19 05:01 MPV 10.1 fL (7.4-11.0) 06/16/19 05:01 Neut % (Auto) 71.6 % (42.0-75.0) 06/16/19 05:01 Lymph % (Auto) 9.2 % (21.0-51.0) L 06/16/19 05:01 [place] % (Auto) 18.1 % (0.0-13.0) H 06/16/19 05:01 Eos % (Auto) 0.7 % (0.9-2.9) L 06/16/19 05:01 Baso % (Auto) 0.4 % (0.2-1.0) 06/16/19 05:01 Neut # (Auto) 3.6 x10^3/uL (2.2-4.8) 06/16/19 05:01 Lymph # (Auto) 0.5 X10^3/uL (1.3-2.9) L 06/16/19 05:01 [place] # (Auto) 0.9 x10^3/uL (0.3-0.8) H 06/16/19 05:01 Eos # (Auto) 0.0 x10^3/uL (0.0-0.2) 06/16/19 05:01 Baso # (Auto) 0.0 X10^3/uL (0.0-0.1) 06/16/19 05:01 Absolute Nucleated RBC 0.1 /100WBC 06/16/19 05:01 ESR 44 MM/HOUR (0-20) H 06/16/19 05:01 PT 23.7 SECONDS (11.8-14.3) 06/16/19 05:01 INR Target Range - 06/16/19 05:01 INR 2.20 (0.8-1.3) H 06/16/19 05:01 APTT 34.4 SECONDS (22.9-36.5) 06/13/19 11:12 PTT Comment - 06/13/19 11:12 Sodium 134 mmol/L (136-145) L 06/16/19 05:01 Corrected Sodium TNP 06/16/19 05:01 Potassium 4.7 mmol/L (3.5-5.1) 06/16/19 05:01 Chloride 101 mmol/L (98-107) 06/16/19 05:01 Carbon Dioxide 26.8 mmol/L (21-32) 06/16/19 05:01 BUN 14 mg/dL (7-18) 06/16/19 05:01 Creatinine 1.12 mg/dL (0.55-1.02) H 06/16/19 05:01 Est GFR (MDRD) Af Amer > 60 (>60) 06/16/19 05:01 Est GFR (MDRD) Non-Af 50 (>60) L 06/16/19 05:01 Glucose 97 mg/dL (65-99) 06/16/19 05:01 Lactic Acid 1.7 mmol/L (0.4-2.0) 06/13/19 12:10 Calcium 8.8 mg/dL (8.5-10.1) 06/16/19 05:01 Corrected Calcium 10.0 mg/dL (8.5-10.1) 06/16/19 05:01 Total Bilirubin 0.60 mg/dL (0.2-1.0) 06/16/19 05:01 AST 211 Units/L (15-37) H 06/16/19 05:01 ALT 392 Units/L (12-78) H 06/16/19 05:01 Alkaline Phosphatase 80 Units/L (46-116) 06/16/19 05:01 Creatine Kinase 80 Units/L (26-192) 06/14/19 04:50 CK-MB (CK-2) < 1.0 ng/mL (0-4.0) 06/14/19 04:50 CK/CKMB % Calc 1.3 % (<4) 06/14/19 04:50 Troponin I 0.02 ng/mL (0-1.5) 06/14/19 04:50 C-Reactive Protein 91.40 mg/L (0-3.0) H 06/16/19 05:01 Total Protein 6.3 g/dL (6.4-8.2) L 06/16/19 05:01 Albumin 2.5 g/dL (3.4-5.0) L 06/16/19 05:01 Globulin 3.8 g/dL (2.5-4.5) 06/16/19 05:01 Albumin/Globulin Ratio 0.7 Ratio (1.1-2.1) L 06/16/19 05:01 Specimen Type Cancelled 06/13/19 13:40 Urine Color Cancelled 06/13/19 13:40 Urine Appearance Cancelled 06/13/19 13:40 Urine pH Cancelled 06/13/19 13:40 Ur Specific [place] Cancelled 06/13/19 13:40 Urine Protein Cancelled 06/13/19 13:40 Urine Glucose (UA) Cancelled 06/13/19 13:40 Urine Ketones Cancelled 06/13/19 13:40 Urine Occult Blood Cancelled 06/13/19 13:40 Urine Nitrite Cancelled 06/13/19 13:40 Urine Bilirubin Cancelled 06/13/19 13:40 Urine Urobilinogen Cancelled 06/13/19 13:40 Ur Leukocyte Esterase Cancelled 06/13/19 13:40 Urine RBC 0-2 /HPF (0-3) 06/13/19 12:21 Urine WBC 0-2 /HPF (0-5) 06/13/19 12:21 Ur Squamous Epith Cells Few /HPF (NEGATIVE) 06/13/19 12:21 Urine Bacteria Negative /HPF (NEGATIVE) 06/13/19 12:21 Ur Culture Indicated? No/not indicated 06/13/19 12:21 - Plan (1) Pneumonia Status: Inactive Qualifiers: Pneumonia type: due to unspecified organism Laterality: right Lung location: lower lobe of lung Qualified Code(s): J18.1 - Lobar pneumonia, unspecified organism Plan: 1/2NS AT 30ML/HR, LEVAQUIN 750MG IV DAILY, ROCEPHIN 1G IV DAILY, MUCOMYST IN NEB [place], SOLU-MEDROL 20MG IV Q8H, RESPIRATORY [place] (2) Generalized weakness Status: Acute
[2019-06-16] MEDS: MUCOMYST 20% 200 MG/ML NEB SCH ×3 (12:15→21:08)
[2019-06-16] MEDS: COUMADIN TAB 3 MG PO SCH (20:19)
[2019-06-16] MEDS: COLACE CAP 100 MG PO SCH (20:21)
[2019-06-16] MEDS: COZAAR PO SCH (20:22)
[2019-06-17 03:09] LABS: BILIRUBIN,URINE NEGATIVE (NEGATIVE); BLOOD/HEMOGLOBIN,URINE NEGATIVE (NEGATIVE); GLUCOSE, URINE NEGATIVE (NEGATIVE); KETONES,URINE NEGATIVE (NEGATIVE); LEUKOCYTE ESTERASE ,URINE NEGATIVE (NEGATIVE); NITRITES,URINE NEGATIVE (NEGATIVE); PROTEIN,URINE NEGATIVE (NEGATIVE); UROBILINOGEN,URINE NORMAL (NORMAL)
[2019-06-17 03:14] LABS: APPEARANCE,URINE CLEAR (CLEAR); COLOR,URINE YELLOW (YELLOW)
[2019-06-17] MEDS ORDERED: NS 1/2 1000 ML IV 1,000 ML IV ONE (05:19)
[2019-06-17 05:33] LABS: BASOPHILS % (AUTO) 0.1 % (0.2-1.0); HEMATOCRIT 35.2 % (36.0-47.0); HEMOGLOBIN 11.6 g/dL (12.0-16.0); LYMPHOCYTES # (AUTO) 0.3 X10^3/uL (1.3-2.9); LYMPHOCYTES % (AUTO) 4.8 % (21.0-51.0); MEAN CORPUSCULAR HEMOGLOBIN 30.1 pg (27.0-34.0); MEAN CORPUSCULAR HGB CONC 32.9 g/dL (33.0-35.0); MEAN CORPUSCULAR VOLUME 91.4 fL (80.0-100.0); MEAN PLATELET VOLUME 9.7 fL (7.4-11.0); MONOCYTES # (AUTO) 0.6 x10^3/uL (0.3-0.8); MONOCYTES % (AUTO) 8.8 % (0.0-13.0); NEUTROPHILS % (AUTO) 86.3 % (42.0-75.0); PLATELET COUNT 132 X10^3/uL (150.0-450.0); RED BLOOD COUNT 3.85 X10^6/uL (3.5-5.4); RED CELL DISTRIBUTION WIDTH 13.9 % (11.6-16.5)
[2019-06-17 05:47] LABS: ALBUMIN 2.5 g/dL (3.4-5.0); CALCIUM 8.7 mg/dL (8.5-10.1); COR CA(FOR HYPOALB) 9.9 mg/dL (8.5-10.1); CREATININE 1.3 mg/dL (0.55-1.02); TOTAL PROTEIN 6.4 g/dL (6.4-8.2)
[2019-06-17] MEDS: NS 1/2 1000 ML IV 1,000 ML IV SCH ×2 (05:47→10:16)
[2019-06-17] MEDS: SOLU-Medrol 40 MG VIAL IVP SCH ×3 (05:47→21:11)
--- NOTE | 2019-06-17 06:10 | RAD ---
HISTORY: Shortness of breath Study: Chest AP portable Comparison: 06/16/2019 Findings: Patient is rotated to the left. The heart is enlarged. No congestive heart failure is noted. The aorta is calcified. Subtle residual right medial basal infiltrate remains but is improved. Remainder of the lung [place] are clear. No pleural effusions are identified. IMPRESSION: Continued cardiomegaly without congestive heart failure Improving but not completely resolved right medial basal infiltrate Reported By:
[2019-06-17] MEDS: MUCOMYST 20% 200 MG/ML NEB SCH ×4 (08:41→21:25)
[2019-06-17] MEDS: PROVENTIL NEB TX 0.083% 2.5MG/ 3ML NEB SCH ×4 (08:41→21:25)
[2019-06-17] MEDS: ROCEPHIN VIAL 1 GRAM 1 G in NS 100 ML IV + SPIKE MINIBAG* 100 ML IV SCH (09:28)
[2019-06-17] MEDS: NORVASC TAB 5 MG PO SCH (09:29)
[2019-06-17] MEDS: ALDACTONE TAB 25 MG PO SCH (09:29)
[2019-06-17] MEDS: ROBITUSSIN DM PO SCH ×4 (09:29→21:07)
[2019-06-17] MEDS: MILK OF MAGNESIA PO SCH ×2 (09:31→21:06)
[2019-06-17] MEDS: OXYBUTYNIN CHLORIDE ER PO SCH (09:31)
[2019-06-17] MEDS: LEVAQUIN PREMIX IV 750 MG 750 MG/150 ML BAG IV SCH (10:15)
[2019-06-17] MEDS: COLACE CAP 100 MG PO SCH (21:05)
[2019-06-17] MEDS: COZAAR PO SCH (21:05)
[2019-06-17] MEDS: COUMADIN TAB 3 MG PO SCH (21:53)
[2019-06-18 05:20] LABS: BASOPHILS % (AUTO) 0.3 % (0.2-1.0); HEMATOCRIT 34.2 % (36.0-47.0); HEMOGLOBIN 11.6 g/dL (12.0-16.0); LYMPHOCYTES # (AUTO) 0.4 X10^3/uL (1.3-2.9); LYMPHOCYTES % (AUTO) 3.9 % (21.0-51.0); MEAN CORPUSCULAR HEMOGLOBIN 30.9 pg (27.0-34.0); MEAN CORPUSCULAR HGB CONC 33.9 g/dL (33.0-35.0); MEAN PLATELET VOLUME 8.9 fL (7.4-11.0); MONOCYTES % (AUTO) 9.7 % (0.0-13.0); NEUTROPHILS # (AUTO) 8.4 x10^3/uL (2.2-4.8); NEUTROPHILS % (AUTO) 86.1 % (42.0-75.0); PLATELET COUNT 153 X10^3/uL (150.0-450.0); RED BLOOD COUNT 3.76 X10^6/uL (3.5-5.4); RED CELL DISTRIBUTION WIDTH 14.1 % (11.6-16.5); WHITE BLOOD COUNT 9.8 X10^3/uL (3.6-10.0)
[2019-06-18 05:36] LABS: ALBUMIN 2.6 g/dL (3.4-5.0); CALCIUM 8.9 mg/dL (8.5-10.1); CARBON DIOXIDE 24.2 mmol/L (21-32); CREATININE 1.36 mg/dL (0.55-1.02); TOTAL PROTEIN 6.4 g/dL (6.4-8.2)
[2019-06-18 05:50] LABS: BAND NEUTROPHILS % 4 % (0-10); PLATELET MORPHOLOGY COMMENT NORMAL (NORMAL)
[2019-06-18] MEDS: SOLU-Medrol 40 MG VIAL IVP SCH (06:01)
--- NOTE | 2019-06-18 06:11 | RAD ---
Examination: AP chest History: SOB Comparison 06/17/2019 Findings: Stable cardiac enlargement. Persistent but improving infiltrate medial right lung base. No new abnormality is noted. Impression: Persistent cardiomegaly with additional interval improvement in the infiltrate, right lower lung. No new abnormality demonstrated. Reported By:
[2019-06-18] MEDS: PROVENTIL NEB TX 0.083% 2.5MG/ 3ML NEB SCH ×2 (08:28→12:34)
[2019-06-18] MEDS: MUCOMYST 20% 200 MG/ML NEB SCH ×2 (08:28→12:34)
[2019-06-18] MEDS ORDERED: LEVAQUIN PREMIX IV 750 MG 750 MG/150 ML BAG IV SCH (09:00)
[2019-06-18] MEDS: NORVASC TAB 5 MG PO SCH (09:27)
[2019-06-18] MEDS: ALDACTONE TAB 25 MG PO SCH (09:28)
[2019-06-18] MEDS: OXYBUTYNIN CHLORIDE ER PO SCH (09:28)
[2019-06-18] MEDS: ROBITUSSIN DM PO SCH (09:29)
[2019-06-18] MEDS: MILK OF MAGNESIA PO SCH (09:30)
[2019-06-18] MEDS ORDERED: ROCEPHIN VIAL 1 GRAM IM ONE (09:46)
[2019-06-18] MEDS: ROCEPHIN VIAL 1 GRAM 1 G in NS 100 ML IV + SPIKE MINIBAG* 100 ML IV SCH (09:50)
[2019-06-18] MEDS ORDERED: LEVAQUIN TAB 500 MG PO SCH (10:00)
[2019-06-18] MEDS ORDERED: XYLOCAINE 1 % (PLAIN) ONE (10:23)
[2019-06-18] MEDS ORDERED: LEVAQUIN TAB 750 MG PO SCH (11:00)
[2019-06-18 13:05] VITALS: BP 114/58
--- NOTE | 2019-07-24 22:49 | PCM.PROG ---
Progress Note - Progress Note for Day of Date of Exam: 06/17/19 - Subjective Subjective: WAS ADMITTED FOR RIGHT LOWER LOBE PNEUMONIA AND GENERALIZED WEAKNESS. SHE CONTINUES WITH COMPLAINTS OF SHORTNESS OF BREATH AND COUGH TODAY. SHE REPORTS SLIGHT IMPROVEMENT IN SYMPTOMS TODAY. SHE CONTINUES TO REPORT SEVERE WEAKNESS AND DECREASED APPETITE. ON EXAMINATION, HEART IS REGULAR IN RATE AND RHYTHM. BILATERAL LUNGS ARE NOTED WITH SCATTERED WHEEZING AND RHONCHI IN BILATERAL LUNGS THROUGHOUT. ABDOMEN IS ROUND, SOFT, AND NON-TENDER WITH NORMAL BOWEL SOUNDS NOTED IN ALL QUADRANTS. HER VITALS THIS MORNING ARE: 98.2-53-20-98%-107/55. LABS WERE OBTAINED. ABNORMAL LAB VALUES INCLUDE THE FOLLOWING: HGB 11.6, HCT 35.2, PLT COUNT 132, INR 2.50, SODIUM 135, BUN 23, CREATININE 1.30, GLUCOSE 135, AST 175, ALT 378, ALBUMIN 2.5. BLOOD CULTURES ARE PENDING. A CHEST XRAY WAS OBTAINED AND REVEALED: Continued cardiomegaly without congestive heart failure. Improving but not completely resolved right medial basal infiltrate. SHE IS CURRENTLY RECEIVING 1/2NS AT 30ML/HR, LEVAQUIN 750MG IV DAILY, ROCEPHIN 1G IV DAILY, SOLU-MEDROL, MUCOMYST, AND RESPIRATORY TREATMENTS. WE WILL CONTINUE WITH CURRENT PLAN OF CARE TODAY. OTHERWISE, WE PLAN TO FOLLOW UP WITH AM LABS AND CONTINUE TO MONITOR. - Past Medical Family Social History Past Med/Fam/Surg Hx: No changes since H&P Allergies: Allergies No Known Drug Allergies Allergy (Verified 06/13/19 10:56) - Review of Systems ROS: No change since H&P - Vital Signs and I&O's Vital Signs: Temperature 98.1 F Pulse Rate [Right Brachial] 64 Pulse Rate [Left Brachial] 70 Pulse Rate 59 Respiratory Rate 20 Blood Pressure [Left Arm] 148/62 Blood Pressure [Right Arm] 114/58 Blood Pressure 124/59 O2 Sat by Pulse Oximetry 98 - Physical Exam Oriented: Normal Eyes: Normal Ear: Normal Nose: Normal Throat: Normal Respiratory: Generalized, Wheezes, Rhonchi Cardiovascular: Bradycardia. negative: S3, S4, Murmur : Normal Auscultation: Bowel Sounds: Normal Palpation: Normal Tenderness: Normal Skin: Normal Musculoskeletal: Normal Psychiatric: Normal Mood Description: Calm Affect: Normal Speech Pattern: Clear, Appropriate - Laboratory and Diagnostics Result Diagrams: 06/18/19 05:01 06/18/19 05:01 Labs: 06/13/19 12:10 Blood Blood Culture - Final 06/13/19 12:05 Blood Blood Culture - Final Laboratory WBC 9.8 X10^3/uL (3.6-10.0) 06/18/19 05:01 RBC 3.76 X10^6/uL (3.5-5.4) 06/18/19 05:01 Hgb 11.6 g/dL (12.0-16.0) L 06/18/19 05:01 Hct 34.2 % (36.0-47.0) L 06/18/19 05:01 MCV 91.0 fL (80.0-100.0) 06/18/19 05:01 MCH 30.9 pg (27.0-34.0) 06/18/19 05:01 MCHC 33.9 g/dL (33.0-35.0) 06/18/19 05:01 RDW 14.1 % (11.6-16.5) 06/18/19 05:01 Plt Count 153 X10^3/uL (150.0-450.0) 06/18/19 05:01 Plt Count Comment Adequate (ADEQUATE) 06/18/19 05:01 MPV 8.9 fL (7.4-11.0) 06/18/19 05:01 Neut % (Auto) 86.1 % (42.0-75.0) H 06/18/19 05:01 Lymph % (Auto) 3.9 % (21.0-51.0) L 06/18/19 05:01 [place] % (Auto) 9.7 % (0.0-13.0) 06/18/19 05:01 Eos % (Auto) 0.0 % (0.9-2.9) L 06/18/19 05:01 Baso % (Auto) 0.3 % (0.2-1.0) 06/18/19 05:01 Neut # (Auto) 8.4 x10^3/uL (2.2-4.8) H 06/18/19 05:01 Lymph # (Auto) 0.4 X10^3/uL (1.3-2.9) L 06/18/19 05:01 [place] # (Auto) 1.0 x10^3/uL (0.3-0.8) H 06/18/19 05:01 Eos # (Auto) 0.0 x10^3/uL (0.0-0.2) 06/18/19 05:01 Baso # (Auto) 0.0 X10^3/uL (0.0-0.1) 06/18/19 05:01 Absolute Nucleated RBC 0.0 /100WBC 06/18/19 05:01 Total Counted 100 06/18/19 05:01 Neutrophils % (Manual) 81 % (39-76) H 06/18/19 05:01 Band Neutrophils % 4 % (0-10) 06/18/19 05:01 Lymphocytes % (Manual) 6 % (13-43) L 06/18/19 05:01 Monocytes % (Manual) 9 % (4-9) 06/18/19 05:01 Plt Morphology Comment Normal (NORMAL) 06/18/19 05:01 RBC Morphology Normal (NORMAL) 06/18/19 05:01 ESR 44 MM/HOUR (0-20) H 06/16/19 05:01 PT 28.0 SECONDS (11.8-14.3) 06/18/19 05:01 INR Target Range - 06/18/19 05:01 INR 2.72 (0.8-1.3) H 06/18/19 05:01 APTT 34.4 SECONDS (22.9-36.5) 06/13/19 11:12 PTT Comment - 06/13/19 11:12 Sodium 135 mmol/L (136-145) L 06/18/19 05:01 Corrected Sodium 136 mmol/L (136-145) 06/18/19 05:01 Potassium 4.7 mmol/L (3.5-5.1) 06/18/19 05:01 Chloride 102 mmol/L (98-107) 06/18/19 05:01 Carbon Dioxide 24.2 mmol/L (21-32) 06/18/19 05:01 BUN 30 mg/dL (7-18) H 06/18/19 05:01 Creatinine 1.36 mg/dL (0.55-1.02) H 06/18/19 05:01 Est GFR (MDRD) Af Amer 48 (>60) L 06/18/19 05:01 Est GFR (MDRD) Non-Af 40 (>60) L 06/18/19 05:01 Glucose 127 mg/dL (65-99) H 06/18/19 05:01 Lactic Acid 1.7 mmol/L (0.4-2.0) 06/13/19 12:10 Calcium 8.9 mg/dL (8.5-10.1) 06/18/19 05:01 Corrected Calcium 10.0 mg/dL (8.5-10.1) 06/18/19 05:01 Total Bilirubin 0.30 mg/dL (0.2-1.0) 06/18/19 05:01 AST 182 Units/L (15-37) H 06/18/19 05:01 ALT 384 Units/L (12-78) H 06/18/19 05:01 Alkaline Phosphatase 99 Units/L (46-116) 06/18/19 05:01 Creatine Kinase 80 Units/L (26-192) 06/14/19 04:50 CK-MB (CK-2) < 1.0 ng/mL (0-4.0) 06/14/19 04:50 CK/CKMB % Calc 1.3 % (<4) 06/14/19 04:50 Troponin I 0.02 ng/mL (0-1.5) 06/14/19 04:50 C-Reactive Protein 91.40 mg/L (0-3.0) H 06/16/19 05:01 Total Protein 6.4 g/dL (6.4-8.2) 06/18/19 05:01 Albumin 2.6 g/dL (3.4-5.0) L 06/18/19 05:01 Globulin 3.8 g/dL (2.5-4.5) 06/18/19 05:01 Albumin/Globulin Ratio 0.7 Ratio (1.1-2.1) L 06/18/19 05:01 Specimen Type Clean catch urine 06/17/19 02:50 Urine Color Yellow (YELLOW) 06/17/19 02:50 Urine Appearance Clear (CLEAR) 06/17/19 02:50 Urine pH 5.0 (5.0 - 8.0) 06/17/19 02:50 Ur Specific [place] 1.010 (1.000-1.030) 06/17/19 02:50 Urine Protein Negative (NEGATIVE) 06/17/19 02:50 Urine Glucose (UA) Negative (NEGATIVE) 06/17/19 02:50 Urine Ketones Negative (NEGATIVE) 06/17/19 02:50 Urine Occult Blood Negative (NEGATIVE) 06/17/19 02:50 Urine Nitrite Negative (NEGATIVE) 06/17/19 02:50 Urine Bilirubin Negative (NEGATIVE) 06/17/19 02:50 Urine Urobilinogen Normal (NORMAL) 06/17/19 02:50 Ur Leukocyte Esterase Negative (NEGATIVE) 06/17/19 02:50 Urine RBC 0-2 /HPF (0-3) 06/13/19 12:21 Urine WBC 0-2 /HPF (0-5) 06/13/19 12:21 Ur Squamous Epith Cells Few /HPF (NEGATIVE) 06/13/19 12:21 Urine Bacteria Negative /HPF (NEGATIVE) 06/13/19 12:21 Ur Culture Indicated? No/not indicated 06/13/19 12:21 - Plan (1) Pneumonia Status: Inactive Qualifiers: Pneumonia type: due to unspecified organism Laterality: right Lung location: lower lobe of lung Plan: 1/2NS AT 30ML/HR, LEVAQUIN 750MG IV DAILY, ROCEPHIN 1G IV DAILY, MUCOMYST IN [place]B [place], SOLU-MEDROL 20MG IV Q8H, RESPIRATORY [place] (2) Generalized weakness Status: Acute
== END 2019-06-18 14:10 | disposition home or self-care (01) | DRG 195 ==
LOC: ER 10:54 → MED/SURG 10:54 → OBS 13:31 → MED/SURG 14:15 → OBS 06-16 14:11 → MED/SURG 06-16 14:16
PROVIDERS: ADMIT Obstetrics & Gynecology Obstetrics; ATTEND Internal Medicine
DX: W18.39XA Other fall on same level, initial encounter; E78.2 Mixed hyperlipidemia; R94.31 Abnormal electrocardiogram [ECG] [EKG]; R94.5 Abnormal results of liver function studies; J18.8 Other pneumonia, unspecified organism; I25.10 Atherosclerotic heart disease of native coronary artery without angina pectoris; I10 Essential (primary) hypertension; M19.90 Unspecified osteoarthritis, unspecified site; R26.89 Other abnormalities of gait and mobility; R53.1 Weakness; R79.1 Abnormal coagulation profile; R06.02 Shortness of breath
CPT/HCPCS: 36415; 51701; 70450; 71010; 71045; 80053; 81001; 81003; 82550; 82553; 83605; 84484; 85025; 85610; 85652; 85730; 86140; 87040; 93005; 94640; 94669; 94760; 96365; 96374; 97110; 97112; 97162; 97166; 97530; 97535; 99284; A4222; G0378; J0696; J1956; J2920; J7050; J7608; J7613

== ENCOUNTER 2020-02-09 20:24 | Inpatient (IN) ==
[2020-02-09] MEDS ORDERED: NS 500 ML IV 500 ML IV ONE (20:55)
[2020-02-09] MEDS ORDERED: NS 1000 ML 1,000 ML ONE (20:59)
--- NOTE | 2020-02-09 21:03 | DR.DIZZY ---
HPI Time seen Time Seen by Provider: 02/09/20 20:38 Complaint Chief Complaint Doctor Comments: A 79 y/o female presents with c/o feeling generally weak x several days. She had a poor appetite for weeks. She is not eating because of poorly fitting dentures. She has to go to [place] for this as it costs too much to do locally. Otherwise there is no other c/o. COVID-19 Coronavirus risk:travel/contact w/high risk person: No Has patient experienced Coronavirus symptoms: No Nurses Notes Reviewed Nurses Notes Review: Yes Source History Provided: Patient Mode of Arrival Mode of Arrival: EMS Timing Came on: Gradually Location of Weakness Weakness Location: Generalized Context Onset: At rest Does pt take pot. 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 Family History Family Medical History: Diabetes Mellitus, Cancer, [place], Coronary Artery Disease and Hypertension Social History Do you use any recreational Drugs:: No ROS Review of Systems Constitutional: Weakness Eyes: No Symptoms Reported ENTM: No Symptoms Reported Respiratoy: No Symptoms Reported Cardiovascular: No Symptoms Reported Gastrointestinal/Abdominal: Other (Decreased oral intake) Genitourinary: No Symptoms Reported Neurological: No Symptoms Reported Musculoskeletal: No Symptoms Reported Integumentary: No Symptoms Reported Hematologic/Lymphatic: No Symptoms Reported Endocrine: No Symptoms Reported Psychiatric: No Symptoms Reported PE Vital Signs Vitals: Temperature 100 F Pulse Rate 68 Respiratory Rate 21 Blood Pressure [Left Arm] 148/62 Blood Pressure [Right Arm] 114/58 Blood Pressure 90/45 O2 Sat by Pulse Oximetry 100 General Limitations: No Limitations General Appearance: Alert Head Head Exam: Normal Inspection, Atraumatic and Normocephalic Eyes Eye exam: Normal Appearance and EOMI ENT ENT Exam: Normal Oropharynx, Normal External Ear Exam, Mucous Membranes Moist and Other (She is edentuous) Neck Neck Exam: Normal Inspection, Full ROM and Trachea Midline Chest Chest Inspection: Normal Inspection and Symmetric Chest Wall Rise Respiratory Respiratory Exam: Normal Lung Sounds Bilat Cardiovascular Cardiovascular Exam: Regular Rate, Normal Rhythm, +S1 and +S2 Abdominal Exam Abdominal Exam: Normal Inspection, Normal Bowel Sounds and Soft Rectal Rectal Exam: Deferred Extremeties Extremities Exam: Normal Inspection Back Back Exam: Normal Inspection Neurologic Neurological Exam: Alert and Oriented X3 Speech: Fluid Speech Psychiatric Psychiatric Exam: Normal Affect and Normal Mood Skin Skin Exam: Dry and Normal Color COURSE Reevaluation 1st: Improved Education/Counseling Education/Counseling: Patient, Education and Counseling Educated On: Treatment, Diagnosis, Prognosis and Needs for Follow Up ROR Labs Reviewed Laboratory Results Reviewed?: Yes Result Diagrams: 02/09/20 21:40 02/09/20 21:40 Laboratory: WBC 9.2 X10^3/uL (3.6-10.0) 02/09/20 21:40 RBC 2.40 X10^6/uL (3.5-5.4) L 02/09/20 21:40 Hgb 7.5 g/dL (12.0-16.0) L 02/09/20 21:40 Hct 22.1 % (36.0-47.0) L 02/09/20 21:40 MCV 92.2 fL (80.0-100.0) 02/09/20 21:40 MCH 31.3 pg (27.0-34.0) 02/09/20 21:40 MCHC 34.0 g/dL (33.0-35.0) 02/09/20 21:40 RDW 14.2 % (11.6-16.5) 02/09/20 21:40 Plt Count 229 X10^3/uL (150.0-450.0) 02/09/20 21:40 Plt Count Comment Adequate (ADEQUATE) 02/09/20 21:40 MPV 8.9 fL (7.4-11.0) 02/09/20 21:40 Neut % (Auto) 86.2 % (42.0-75.0) H 02/09/20 21:40 Lymph % (Auto) 4.5 % (21.0-51.0) L 02/09/20 21:40 [place] % (Auto) 8.7 % (0.0-13.0) 02/09/20 21:40 Eos % (Auto) 0.1 % (0.9-2.9) L 02/09/20 21:40 Baso % (Auto) 0.5 % (0.2-1.0) 02/09/20 21:40 Neut # (Auto) 7.9 x10^3/uL (2.2-4.8) H 02/09/20 21:40 Lymph # (Auto) 0.4 X10^3/uL (1.3-2.9) L 02/09/20 21:40 [place] # (Auto) 0.8 x10^3/uL (0.3-0.8) 02/09/20 21:40 Eos # (Auto) 0.0 x10^3/uL (0.0-0.2) 02/09/20 21:40 Baso # (Auto) 0.0 X10^3/uL (0.0-0.1) 02/09/20 21:40 Absolute Nucleated RBC 0.0 /100WBC 02/09/20 21:40 Plt Morphology Comment Normal (NORMAL) 02/09/20 21:40 RBC Morphology Normal (NORMAL) 02/09/20 21:40 Sodium 133 mmol/L (136-145) L 02/09/20 21:40 Corrected Sodium 134 mmol/L (136-145) L 02/09/20 21:40 Potassium 6.9 mmol/L (3.5-5.1) H* 02/09/20 21:40 Chloride 101 mmol/L (98-107) 02/09/20 21:40 Carbon Dioxide 22.4 mmol/L (21-32) 02/09/20 21:40 BUN 69 mg/dL (7-18) H 02/09/20 21:40 Creatinine 3.56 mg/dL (0.55-1.02) H 02/09/20 21:40 Est GFR (MDRD) Af Amer 16 (>60) L 02/09/20 21:40 Est GFR (MDRD) Non-Af 13 (>60) L 02/09/20 21:40 Glucose 131 mg/dL (65-99) H 02/09/20 21:40 Calcium 9.0 mg/dL (8.5-10.1) 02/09/20 21:40 Corrected Calcium TNP 02/09/20 21:40 Total Bilirubin 0.50 mg/dL (0.2-1.0) 02/09/20 21:40 AST 27 Units/L (15-37) 02/09/20 21:40 ALT 20 Units/L (12-78) 02/09/20 21:40 Alkaline Phosphatase 81 Units/L (46-116) 02/09/20 21:40 Total Protein 7.4 g/dL (6.4-8.2) 02/09/20 21:40 Albumin 3.4 g/dL (3.4-5.0) 02/09/20 21:40 Globulin 4.0 g/dL (2.5-4.5) 02/09/20 21:40 Albumin/Globulin Ratio 0.9 Ratio (1.1-2.1) L 02/09/20 21:40 TSH 3rd Generation 0.967 uIU/mL (0.358-3.74) 02/09/20 21:40 EKG Rate: 71 [place]: Normal Rhythm: NSR Block: None Hypertrophy: None ST: Normal Opioid Opioid Risk Tool Age (Carlos box if 16-45): No History of Preadolescent Sexual Abuse: No Total: 0 Total Score Risk Category: Low Risk Copyright: Baljit WRIGHT predicting aberrant behaviors Diagnosis Discharge Problem: Acute hyperkalemia, Anemia, normocytic normochromic, CKD (chronic kidney disease) stage 4, GFR 15-29 ml/min, Hypothyroidism (acquired) Fatigue Qualifiers: Fatigue type: unspecified Qualified Code(s): R53.83 - Other fatigue HTN (hypertension) Qualifiers: Hypertension type: essential hypertension Qualified Code(s): I10 - Essential (primary) hypertension Instructions Forms: Excuse From Work Precautions for COVID19 Patient Portal Social Distancing
[2020-02-09 21:21] LABS: HEMOGLOBIN 7.5 g/dL (12.0-16.0)
[2020-02-09 21:24] LABS: BASOPHILS % (AUTO) 0.5 % (0.2-1.0); EOSINOPHILS % (AUTO) 0.1 % (0.9-2.9); HEMATOCRIT 22.1 % (36.0-47.0); LYMPHOCYTES # (AUTO) 0.4 X10^3/uL (1.3-2.9); LYMPHOCYTES % (AUTO) 4.5 % (21.0-51.0); MEAN CORPUSCULAR HEMOGLOBIN 31.3 pg (27.0-34.0); MEAN CORPUSCULAR VOLUME 92.2 fL (80.0-100.0); MEAN PLATELET VOLUME 8.9 fL (7.4-11.0); MONOCYTES # (AUTO) 0.8 x10^3/uL (0.3-0.8); MONOCYTES % (AUTO) 8.7 % (0.0-13.0); NEUTROPHILS # (AUTO) 7.9 x10^3/uL (2.2-4.8); NEUTROPHILS % (AUTO) 86.2 % (42.0-75.0); PLATELET COUNT 229 X10^3/uL (150.0-450.0); RED CELL DISTRIBUTION WIDTH 14.2 % (11.6-16.5); WHITE BLOOD COUNT 9.2 X10^3/uL (3.6-10.0)
[2020-02-09 21:54] LABS: PLATELET MORPHOLOGY COMMENT NORMAL (NORMAL)
[2020-02-09 22:01] LABS: BLOOD UREA NITROGEN 69 mg/dL (7-18); CARBON DIOXIDE 22.4 mmol/L (21-32); CHLORIDE 101 mmol/L (98-107); COR NA(FOR HYPERGLY) 134 mmol/L (136-145); CREATININE 3.56 mg/dL (0.55-1.02); SODIUM 133 mmol/L (136-145); eGFR NON BLACK RACES 13 (>60)
[2020-02-09 22:14] LABS: ALANINE AMINOTRANSFERASE 20 Units/L (12-78); ALBUMIN 3.4 g/dL (3.4-5.0); ALKALINE PHOSPHATASE 81 Units/L (46-116); ASPARTATE AMINO TRANSFERASE 27 Units/L (15-37); TOTAL PROTEIN 7.4 g/dL (6.4-8.2); TSH (3RD GENERATION) 0.967 uIU/mL (0.358-3.74)
[2020-02-09] MEDS ORDERED: SODIUM BICARBONATE 8.4% INJ ADULT IVP ONE (22:36)
[2020-02-09] MEDS ORDERED: D50W ABBOJECT SYR IV ONE (22:36)
[2020-02-09] MEDS ORDERED: HumaLOG SC ONE (22:36)
[2020-02-09] MEDS ORDERED: KAYEXALATE SUSP PO ONE (22:37)
[2020-02-09] MEDS ORDERED: D50W ABBOJECT SYR ONE (22:55)
[2020-02-09] MEDS ORDERED: HumuLIN R ONE (22:56)
[2020-02-09] MEDS: SNACK - Diabetic Appropriate PO SCH (23:15)
[2020-02-10] MEDS ORDERED: KAYEXALATE SUSP ONE (00:52)
[2020-02-10] MEDS: NS 1000 ML 1,000 ML IV SCH ×3 (03:36→15:40)
[2020-02-10 04:31] VITALS: BMI 23.1
[2020-02-10 06:14] LABS: BASOPHILS % (AUTO) 0.5 % (0.2-1.0); EOSINOPHILS % (AUTO) 0.3 % (0.9-2.9); LYMPHOCYTES # (AUTO) 0.7 X10^3/uL (1.3-2.9); MEAN CORPUSCULAR HEMOGLOBIN 31.3 pg (27.0-34.0); MEAN CORPUSCULAR HGB CONC 33.6 g/dL (33.0-35.0); MEAN CORPUSCULAR VOLUME 93.3 fL (80.0-100.0); MEAN PLATELET VOLUME 9.3 fL (7.4-11.0); MONOCYTES # (AUTO) 1.1 x10^3/uL (0.3-0.8); MONOCYTES % (AUTO) 11.7 % (0.0-13.0); NEUTROPHILS # (AUTO) 7.2 x10^3/uL (2.2-4.8); NEUTROPHILS % (AUTO) 79.5 % (42.0-75.0); PLATELET COUNT 183 X10^3/uL (150.0-450.0); RED BLOOD COUNT 2.04 X10^6/uL (3.5-5.4)
[2020-02-10 06:34] LABS: HEMOGLOBIN 6.4 g/dL (12.0-16.0)
[2020-02-10 06:35] LABS: HEMATOCRIT 19.1 % (36.0-47.0)
[2020-02-10 06:39] LABS: ALBUMIN 3.1 g/dL (3.4-5.0); CALCIUM 8.5 mg/dL (8.5-10.1); CARBON DIOXIDE 23.4 mmol/L (21-32); COR CA(FOR HYPOALB) 9.2 mg/dL (8.5-10.1); CREATININE 3.3 mg/dL (0.55-1.02); TOTAL PROTEIN 6.7 g/dL (6.4-8.2)
[2020-02-10 06:47] LABS: HYPOCHROMASIA 1+; PLATELET MORPHOLOGY COMMENT NORMAL (NORMAL)
[2020-02-10 06:48] LABS: MICROCYTOSIS SLIGHT
[2020-02-10] MEDS ORDERED: MAALOX or MYLANTA PO PRN (07:52)
[2020-02-10] MEDS: SYNTHROID 50 mcg TAB PO SCH (08:44)
[2020-02-10] MEDS: NORVASC TAB 5 MG PO SCH ×2 (08:44→15:22)
[2020-02-10] MEDS: FOLIC ACID TAB 1 MG PO SCH (08:45)
[2020-02-10] MEDS ORDERED: BENADRYL INJ 50 MG VIAL IVP PRN (08:53)
[2020-02-10] MEDS ORDERED: NS 500 ML IV 500 ML IV ONE (08:53)
[2020-02-10] MEDS ORDERED: TYLENOL 325 MG TAB PO PRN (08:53)
[2020-02-10] MEDS ORDERED: VITAMIN D (1.25MG) PO SCH (09:00)
[2020-02-10] MEDS ORDERED: LASIX IVP ONE (09:56)
[2020-02-10] MEDS ORDERED: AQUA-MEPHYTON ADULT INJ SC ONE (15:00)
[2020-02-10] MEDS ORDERED: COZAAR PO SCH (21:00)
--- NOTE | 2020-02-10 21:27 | DR.H&P ---
H&P - History & Physical for Day of: H&P Date: 02/10/20 - Chief Complaint Chief Complaint: WEAKNESS, DECREASED APPETITE - History of Present Illness History of Present Illness: IS A 79 YEAR OLD PATIENT OF OURS WHO PRESENTED TO THE ER WITH COMPLAINTS OF SEVERE WEAKNESS AND POOR APPETITE FOR THE PAST 2-3 WEEKS. SYMPTOMS HAVE GRADUALLY WORSENED OVER THE PAST FEW WEEKS. SHE REPORTS AN UNSTEADY GAIT AND THAT SHE IS UNABLE TO PERFORM ADLs AFFECTIVELY BY HERSELF AT THE PRESENT TIME. SHE DENIES ANY OTHER COMPLAINTS. 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 ON ARRIVAL TO THE ER, VITALS WERE 100.0-72-20-96%-105/54. LABS WERE OBTAINED. ABNORMAL LAB VALUES INCLUDE THE FOLLOWING: RBC 2.40, HGB 7.5, HCT 22.1, SODIUM 133, POTASSIUM 6.9, BUN 69, CREATININE 3.56, GLUCOSE 131. ON AM ROUNDS, PATIENTS HGB HAD FALLEN TO 6.4, HCT 19.1. AN EKG WAS OBTAINED AND REVEALED: SINUS RHYTHM WITH HR 71. LAB REPORTS THAT THEY ARE UNABLE TO OBTAIN AN INR DUE TO PT BEING GREATER THAN 100. PATIENT IS CURRENTLY ON COUMADIN FOR HER A-FIB. I SUSPECT THAT HER INR IS CRITICALLY HIGH. TODAY, WE PLAN TO TRANSFUSE UNITS OF FRESH FROZEN PLASMA AND ADMINISTER VITAMIN K 10MG X 1 DOSE. WE WILL RECHECK INR TWO HOURS AFTER TRANSFUSION. WHEN INR IS STABLE, WE WILL TRANSFUSE 2 UNITS OF PRBC. WE WILL ADMINISTER LASIX 20MG IV X 1 DOSE IN BETWEEN UNITS. WE WILL ALSO HOLD HER BLOOD PRESSURE MEDICATIONS DUE TO HYPOTENSION. SHE WAS STARTED ON NORMAL SALINE AT 80 ML/HR AND HER HOME MEDICATIONS WERE RESUMED WITH THE EXCEPTION OF HER COUMADIN AND BLOOD PRESSURE MEDICATIONS. OTHERWISE, WE PLAN TO FOLLOW UP WITH AM LABS AND CONTINUE TO MONITOR. 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 - Family History Family Medical History: Hypertension - Social History Alcohol Use: None - Medications Home Medications: No Known Drug Allergies Allergy (Verified 06/13/19 10:56) CONTINUE taking the following medications amlodipine 5 mg PO DAILY 02/09/20 [History] ergocalciferol (vitamin D2) [Vitamin D2] 50,000 unit PO DAILY 02/09/20 [History] folic acid 1 mg PO DAILY 02/09/20 [History] furosemide [Lasix] 20 mg PO QAM 02/09/20 [History] levothyroxine 50 mcg PO DAILY 02/09/20 [History] losartan 50 mg PO HS 02/09/20 [History] spironolactone [Aldactone] 25 mg PO DAILY 02/09/20 [History] warfarin 5 mg PO DAILY 02/10/20 [History] - Review of Systems Constitutional: Weakness, Malaise, Other (DECREASED APPETITE ) Eyes: No Symptoms Reported ENT: No Symptoms Reported Respiratory: No Symptoms Reported Cardiovascular: No Symptoms Reported Gastrointestinal: No Symptoms Reported Genitourinary: No Symptoms Reported Musculoskeletal: No Symptoms Reported Skin: No Symptoms Reported Neurological: Weakness - Physical Exam Vital Signs: Temperature 97.6 F Pulse Rate [Right Brachial] 80 Pulse Rate [Radial] 87 Pulse Rate 68 Respiratory Rate 20 Blood Pressure [Left Arm] 148/62 Blood Pressure [Right Arm] 102/54 Blood Pressure 83/45 O2 Sat by Pulse Oximetry 100 Oriented: Normal Eyes: Normal Ear: Normal Nose: Normal Respiratory: Diminished Throughout Cardiovascular: Normal : Normal Auscultation: Bowel Sounds: Normal Palpation: Normal Tenderness: Normal Skin: Normal Musculoskeletal: Normal Psychiatric: Normal Mood Description: Calm Affect: Normal Speech Pattern: Clear - Assessment/Plan (1) Anemia Qualifiers: Anemia type: unspecified type Qualified Code(s): D64.9 - Anemia, unspecified Status: Acute Plan: ADMIT, NS AT 80 ML/HR, RESUME HOME MEDS, TRANSFUSE 2 UNITS FFP, THEN BLOOD WHEN INR IS STABLE (2) Generalized muscle weakness Status: Acute (3) Acute hyperkalemia Status: Acute Plan: NORMAL SALINE AT 80 ML/HR, CONTINUE TO MONITOR - Allergies Allergies/Adverse Reactions: Allergies Allergy/AdvReac Type Severity Reaction Status Date / Time No Known Drug Allergies Allergy Verified 06/13/19 10:56
[2020-02-10] MEDS: SNACK - Diabetic Appropriate PO SCH (23:45)
[2020-02-11] MEDS: NS 1000 ML 1,000 ML IV SCH ×3 (05:32→16:38)
[2020-02-11 06:47] LABS: BASOPHILS % (AUTO) 0.4 % (0.2-1.0); EOSINOPHILS # (AUTO) 0.1 x10^3/uL (0.0-0.2); EOSINOPHILS % (AUTO) 0.7 % (0.9-2.9); LYMPHOCYTES # (AUTO) 1.1 X10^3/uL (1.3-2.9); LYMPHOCYTES % (AUTO) 11.2 % (21.0-51.0); MEAN CORPUSCULAR HEMOGLOBIN 31.9 pg (27.0-34.0); MEAN CORPUSCULAR HGB CONC 34.2 g/dL (33.0-35.0); MEAN CORPUSCULAR VOLUME 93.4 fL (80.0-100.0); MEAN PLATELET VOLUME 8.8 fL (7.4-11.0); MONOCYTES # (AUTO) 1.3 x10^3/uL (0.3-0.8); MONOCYTES % (AUTO) 13.4 % (0.0-13.0); NEUTROPHILS # (AUTO) 7.1 x10^3/uL (2.2-4.8); NEUTROPHILS % (AUTO) 74.3 % (42.0-75.0); PLATELET COUNT 156 X10^3/uL (150.0-450.0); RED BLOOD COUNT 1.32 X10^6/uL (3.5-5.4); RED CELL DISTRIBUTION WIDTH 13.9 % (11.6-16.5); WHITE BLOOD COUNT 9.5 X10^3/uL (3.6-10.0)
[2020-02-11 07:00] LABS: HEMATOCRIT 12.3 % (36.0-47.0); HEMOGLOBIN 4.2 g/dL (12.0-16.0)
[2020-02-11 07:02] LABS: ALBUMIN 2.9 g/dL (3.4-5.0); CALCIUM 8.3 mg/dL (8.5-10.1); CARBON DIOXIDE 26.3 mmol/L (21-32); COR CA(FOR HYPOALB) 9.2 mg/dL (8.5-10.1); CREATININE 2.3 mg/dL (0.55-1.02); TOTAL PROTEIN 6.2 g/dL (6.4-8.2)
[2020-02-11] MEDS: FOLIC ACID TAB 1 MG PO SCH (08:50)
[2020-02-11] MEDS: SYNTHROID 50 mcg TAB PO SCH (08:50)
[2020-02-11] MEDS ORDERED: NS 500 ML IV 500 ML IV ONE ×2 (10:37→21:09)
[2020-02-11] MEDS ORDERED: LASIX ONE (15:06)
[2020-02-11] MEDS: SNACK - Diabetic Appropriate PO SCH (20:15)
[2020-02-11 20:45] LABS: HEMATOCRIT 21.1 % (36.0-47.0); HEMOGLOBIN 7.2 g/dL (12.0-16.0)
[2020-02-11] MEDS ORDERED: LASIX IVP ONE (22:39)
[2020-02-12 05:07] LABS: BASOPHILS # (AUTO) 0.1 X10^3/uL (0.0-0.1); BASOPHILS % (AUTO) 0.9 % (0.2-1.0); EOSINOPHILS # (AUTO) 0.2 x10^3/uL (0.0-0.2); EOSINOPHILS % (AUTO) 2.8 % (0.9-2.9); HEMATOCRIT 28.7 % (36.0-47.0); LYMPHOCYTES # (AUTO) 0.9 X10^3/uL (1.3-2.9); LYMPHOCYTES % (AUTO) 11.8 % (21.0-51.0); MEAN CORPUSCULAR HEMOGLOBIN 30.1 pg (27.0-34.0); MEAN CORPUSCULAR HGB CONC 33.8 g/dL (33.0-35.0); MEAN CORPUSCULAR VOLUME 88.8 fL (80.0-100.0); MEAN PLATELET VOLUME 7.6 fL (7.4-11.0); MONOCYTES # (AUTO) 0.9 x10^3/uL (0.3-0.8); MONOCYTES % (AUTO) 11.7 % (0.0-13.0); NEUTROPHILS # (AUTO) 5.8 x10^3/uL (2.2-4.8); NEUTROPHILS % (AUTO) 72.8 % (42.0-75.0); PLATELET COUNT 160 X10^3/uL (150.0-450.0); RED BLOOD COUNT 3.23 X10^6/uL (3.5-5.4); RED CELL DISTRIBUTION WIDTH 14.9 % (11.6-16.5)
[2020-02-12 05:08] LABS: HEMOGLOBIN 9.7 g/dL (12.0-16.0)
[2020-02-12 05:19] LABS: ALANINE AMINOTRANSFERASE 23 Units/L (12-78); ALBUMIN 3.1 g/dL (3.4-5.0); ALKALINE PHOSPHATASE 68 Units/L (46-116); ASPARTATE AMINO TRANSFERASE 26 Units/L (15-37); BLOOD UREA NITROGEN 38 mg/dL (7-18); CALCIUM 8.7 mg/dL (8.5-10.1); CHLORIDE 101 mmol/L (98-107); COR CA(FOR HYPOALB) 9.4 mg/dL (8.5-10.1); CREATININE 1.66 mg/dL (0.55-1.02); SODIUM 133 mmol/L (136-145); TOTAL PROTEIN 6.8 g/dL (6.4-8.2); eGFR NON BLACK RACES 32 (>60)
[2020-02-12] MEDS: NS 1000 ML 1,000 ML IV SCH ×3 (06:14→20:41)
--- NOTE | 2020-02-12 09:12 | PCM.PROG ---
Progress Note - Progress Note for Day of Date of Exam: 02/11/20 - Subjective Subjective: IS BEING TREATED FOR ANEMIA, ACUTE ON CHRONIC RENAL FAILURE, ABNORMAL INR, ACUTE HYPERKALEMIA, AND GENERALIZED WEAKNESS. TODAY, SHE IS LYING IN BED WITH EYES CLOSED ON MORNING ROUNDS. SHE AWAKENS EASILY TO VERBAL STIMULI. SHE CONTINUES WITH COMPLAINTS OF WEAKNESS TODAY. SHE RECEIVED TWO UNITS OF FRESH FROZEN PLASMA AND VITAMIN K 10MG X 1 DOSE YESTERDAY DUE TO ELEVATED INR. ON EXAMINATION, HEART IS REGULAR IN RATE AND RHYTHM. BILATERAL LUNGS ARE NOTED WITH DIMINISHED LUNG SOUNDS THROUGHOUT. ABDOMEN IS ROUND, SOFT, AND NON- TENDER WITH NORMAL BOWEL SOUNDS NOTED IN ALL QUADRANTS. HER VITALS THIS MORNING ARE: 98.1-90-20-100%NC-110/52. LABS WERE OBTAINED. ABNORMAL LAB VALUES INCLUDE THE FOLLOWING: RBC 1.32, HGB 4.2, HCT 12.3, INR 3.28, BUN 59, CREATININE 2.30, GLUCOSE 111, CALCIUM 8.3, TOTAL PROTEIN 6.2, ALBUMIN 2.9. SHE IS CURRENTLY RECEIVING NS AT 80 ML/HR AND HOME MEDICATIONS WERE RESUMED WITH THE EXCEPTION OF HER BLOOD PRESSURE MEDICATIONS. TODAY, WE WILL ADMINISTER FOUR UNITS OF PRBC. OTHERWISE, WE PLAN TO FOLLOW UP WITH AM LABS AND CONTINUE TO MONITOR. - Past Medical Family Social History Past Med/Fam/Surg Hx: No changes since H&P Allergies: Allergies No Known Drug Allergies Allergy (Verified 06/13/19 10:56) - Review of Systems ROS: No change since H&P - Vital Signs and I&O's Vital Signs: Temperature 98.0 F Pulse Rate [Right Brachial] 74 Pulse Rate [Radial] 80 Pulse Rate 68 Respiratory Rate 18 Blood Pressure [Left Arm] 148/62 Blood Pressure [Right Arm] 109/57 Blood Pressure 83/45 O2 Sat by Pulse Oximetry 100 Intake and Output: Intake & Output 02/09/20 02/10/20 02/11/20 02/12/20 11:59 11:59 11:59 11:59 Intake Total 430 / 430 3080 / 3080 1903 Balance 430 / 430 3080 / 3080 1903 - Physical Exam Oriented: Normal Eyes: Normal Ear: Normal Nose: Normal Throat: Normal Respiratory: Generalized, Diminished Cardiovascular: Normal : Normal Auscultation: Bowel Sounds: Normal Palpation: Normal Tenderness: Normal Skin: Normal Musculoskeletal: Normal Psychiatric: Normal Mood Description: Calm Affect: Normal Speech Pattern: Clear, Appropriate - Laboratory and Diagnostics Result Diagrams: 02/12/20 04:45 02/12/20 04:45 Labs: Laboratory WBC 8.0 X10^3/uL (3.6-10.0) 02/12/20 04:45 RBC 3.23 X10^6/uL (3.5-5.4) L 02/12/20 04:45 Hgb 9.7 g/dL (12.0-16.0) L D 02/12/20 04:45 Hct 28.7 % (36.0-47.0) L 02/12/20 04:45 MCV 88.8 fL (80.0-100.0) 02/12/20 04:45 MCH 30.1 pg (27.0-34.0) 02/12/20 04:45 MCHC 33.8 g/dL (33.0-35.0) 02/12/20 04:45 RDW 14.9 % (11.6-16.5) 02/12/20 04:45 Plt Count 160 X10^3/uL (150.0-450.0) 02/12/20 04:45 Plt Count Comment Adequate (ADEQUATE) 02/10/20 05:22 MPV 7.6 fL (7.4-11.0) 02/12/20 04:45 Neut % (Auto) 72.8 % (42.0-75.0) 02/12/20 04:45 Lymph % (Auto) 11.8 % (21.0-51.0) L 02/12/20 04:45 [place] % (Auto) 11.7 % (0.0-13.0) 02/12/20 04:45 Eos % (Auto) 2.8 % (0.9-2.9) 02/12/20 04:45 Baso % (Auto) 0.9 % (0.2-1.0) 02/12/20 04:45 Neut # (Auto) 5.8 x10^3/uL (2.2-4.8) H 02/12/20 04:45 Lymph # (Auto) 0.9 X10^3/uL (1.3-2.9) L 02/12/20 04:45 [place] # (Auto) 0.9 x10^3/uL (0.3-0.8) H 02/12/20 04:45 Eos # (Auto) 0.2 x10^3/uL (0.0-0.2) 02/12/20 04:45 Baso # (Auto) 0.1 X10^3/uL (0.0-0.1) 02/12/20 04:45 Absolute Nucleated RBC 0.3 /100WBC 02/12/20 04:45 Plt Morphology Comment Normal (NORMAL) 02/10/20 05:22 RBC Morphology Abnormal (NORMAL) A 02/10/20 05:22 Hypochromasia 1+ A 02/10/20 05:22 Microcytosis Slight A 02/10/20 05:22 PT 18.2 SECONDS (11.8-14.3) 02/12/20 04:45 INR Target Range - 02/12/20 04:45 INR 1.56 (0.8-1.3) H 02/12/20 04:45 Sodium 133 mmol/L (136-145) L 02/12/20 04:45 Corrected Sodium TNP 02/12/20 04:45 Potassium 4.4 mmol/L (3.5-5.1) 02/12/20 04:45 Chloride 101 mmol/L (98-107) 02/12/20 04:45 Carbon Dioxide 28.0 mmol/L (21-32) 02/12/20 04:45 BUN 38 mg/dL (7-18) H 02/12/20 04:45 Creatinine 1.66 mg/dL (0.55-1.02) H 02/12/20 04:45 Est GFR (MDRD) Af Amer 38 (>60) L 02/12/20 04:45 Est GFR (MDRD) Non-Af 32 (>60) L 02/12/20 04:45 Glucose 104 mg/dL (65-99) H 02/12/20 04:45 Calcium 8.7 mg/dL (8.5-10.1) 02/12/20 04:45 Corrected Calcium 9.4 mg/dL (8.5-10.1) 02/12/20 04:45 Total Bilirubin 1.20 mg/dL (0.2-1.0) H 02/12/20 04:45 AST 26 Units/L (15-37) 02/12/20 04:45 ALT 23 Units/L (12-78) 02/12/20 04:45 Alkaline Phosphatase 68 Units/L (46-116) 02/12/20 04:45 Total Protein 6.8 g/dL (6.4-8.2) 02/12/20 04:45 Albumin 3.1 g/dL (3.4-5.0) L 02/12/20 04:45 Globulin 3.7 g/dL (2.5-4.5) 02/12/20 04:45 Albumin/Globulin Ratio 0.8 Ratio (1.1-2.1) L 02/12/20 04:45 TSH 3rd Generation 0.967 uIU/mL (0.358-3.74) 02/09/20 21:40 Blood Type A POSITIVE 02/10/20 09:10 Antibody Screen Negative 02/10/20 09:10 Crossmatch See Detail 02/10/20 09:10 - Plan (1) Anemia Status: Acute Qualifiers: Anemia type: unspecified type Qualified Code(s): D64.9 - Anemia, unspecified Plan: TRANSFUSE 4 UNITS PRBC, NS AT 80 ML/HR, RESUME HOME MEDS (2) CKD (chronic kidney disease) stage 4, GFR 15-29 ml/min Status: Acute Plan: NS AT 80 ML/HR, CONTINUE TO MONITOR (3) Acute hyperkalemia Status: Acute Plan: NORMAL SALINE AT 80 ML/HR, CONTINUE TO MONITOR (4) Abnormal INR Status: Acute (5) Generalized muscle weakness Status: Acute
--- NOTE | 2020-02-12 09:15 | PCM.PROG ---
Progress Note - Progress Note for Day of Date of Exam: 02/12/20 - Subjective Subjective: IS BEING TREATED FOR ANEMIA, ACUTE RENAL FAILURE, ABNORMAL INR, ACUTE HYPERKALEMIA, AND GENERALIZED WEAKNESS. SHE HAS RECEIVED FOUR UNITS OF PRBC AND TWO UNITS OF FRESH FROZEN PLASMA SINCE ADMISSION. TODAY, SHE IS LYING IN BED WITH EYES CLOSED ON MORNING ROUNDS. SHE AWAKENS EASILY TO VERBAL STIMULI. SHE CONTINUES WITH COMPLAINTS OF WEAKNESS TODAY, BUT REPORTS IMPROVEMENT SINCE YESTERDAY. ON EXAMINATION, HEART IS REGULAR IN RATE AND RHYTHM. BILATERAL LUNGS ARE NOTED WITH DIMINISHED LUNG SOUNDS THROUGHOUT. ABDOMEN IS ROUND, SOFT, AND NON-TENDER WITH NORMAL BOWEL SOUNDS NOTED IN ALL QUADRANTS. HER VITALS THIS MORNING ARE: 98.0-74-18-100%NC-109/57. LABS WERE OBTAINED. ABNORMAL LAB VALUES INCLUDE THE FOLLOWING: RBC 3.23, HGB 9.7, HCT 28.7, INR 1.56, SODIUM 133, BUN 38, CREAITNINE 1.66, GLUCOSE 104, TOTAL BILI 1.20, ALBUMIN 3.1. SHE IS CURRENTLY RECEIVING NS AT 80 ML/HR AND HOME MEDICATIONS WERE RESUMED WITH THE EXCEPTION OF HER BLOOD PRESSURE MEDICATIONS. WE WILL MONITOR HER H&H TODAY. OTHERWISE, WE WILL FOLLOW UP WITH AM LABS AND CONTINUE TO MONITOR. - Past Medical Family Social History Past Med/Fam/Surg Hx: No changes since H&P Allergies: Allergies No Known Drug Allergies Allergy (Verified 06/13/19 10:56) - Review of Systems ROS: No change since H&P - Vital Signs and I&O's Vital Signs: Temperature 98.0 F Pulse Rate [Right Brachial] 74 Pulse Rate [Radial] 80 Pulse Rate 68 Respiratory Rate 18 Blood Pressure [Left Arm] 148/62 Blood Pressure [Right Arm] 109/57 Blood Pressure 83/45 O2 Sat by Pulse Oximetry 100 Intake and Output: Intake & Output 02/09/20 02/10/20 02/11/20 02/12/20 11:59 11:59 11:59 11:59 Intake Total 430 / 430 3080 / 3080 1903 Balance 430 / 430 3080 / 3080 1903 - Physical Exam Oriented: Normal Eyes: Normal Ear: Normal Nose: Normal Throat: Normal Respiratory: Generalized, Diminished Cardiovascular: Normal : Normal Auscultation: Bowel Sounds: Normal Palpation: Normal Tenderness: Normal Skin: Normal Musculoskeletal: Normal Psychiatric: Normal Mood Description: Calm Affect: Normal Speech Pattern: Clear, Appropriate - Laboratory and Diagnostics Result Diagrams: 02/12/20 04:45 02/12/20 04:45 Labs: Laboratory WBC 8.0 X10^3/uL (3.6-10.0) 02/12/20 04:45 RBC 3.23 X10^6/uL (3.5-5.4) L 02/12/20 04:45 Hgb 9.7 g/dL (12.0-16.0) L D 02/12/20 04:45 Hct 28.7 % (36.0-47.0) L 02/12/20 04:45 MCV 88.8 fL (80.0-100.0) 02/12/20 04:45 MCH 30.1 pg (27.0-34.0) 02/12/20 04:45 MCHC 33.8 g/dL (33.0-35.0) 02/12/20 04:45 RDW 14.9 % (11.6-16.5) 02/12/20 04:45 Plt Count 160 X10^3/uL (150.0-450.0) 02/12/20 04:45 Plt Count Comment Adequate (ADEQUATE) 02/10/20 05:22 MPV 7.6 fL (7.4-11.0) 02/12/20 04:45 Neut % (Auto) 72.8 % (42.0-75.0) 02/12/20 04:45 Lymph % (Auto) 11.8 % (21.0-51.0) L 02/12/20 04:45 [place] % (Auto) 11.7 % (0.0-13.0) 02/12/20 04:45 Eos % (Auto) 2.8 % (0.9-2.9) 02/12/20 04:45 Baso % (Auto) 0.9 % (0.2-1.0) 02/12/20 04:45 Neut # (Auto) 5.8 x10^3/uL (2.2-4.8) H 02/12/20 04:45 Lymph # (Auto) 0.9 X10^3/uL (1.3-2.9) L 02/12/20 04:45 [place] # (Auto) 0.9 x10^3/uL (0.3-0.8) H 02/12/20 04:45 Eos # (Auto) 0.2 x10^3/uL (0.0-0.2) 02/12/20 04:45 Baso # (Auto) 0.1 X10^3/uL (0.0-0.1) 02/12/20 04:45 Absolute Nucleated RBC 0.3 /100WBC 02/12/20 04:45 Plt Morphology Comment Normal (NORMAL) 02/10/20 05:22 RBC Morphology Abnormal (NORMAL) A 02/10/20 05:22 Hypochromasia 1+ A 02/10/20 05:22 Microcytosis Slight A 02/10/20 05:22 PT 18.2 SECONDS (11.8-14.3) 02/12/20 04:45 INR Target Range - 02/12/20 04:45 INR 1.56 (0.8-1.3) H 02/12/20 04:45 Sodium 133 mmol/L (136-145) L 02/12/20 04:45 Corrected Sodium TNP 02/12/20 04:45 Potassium 4.4 mmol/L (3.5-5.1) 02/12/20 04:45 Chloride 101 mmol/L (98-107) 02/12/20 04:45 Carbon Dioxide 28.0 mmol/L (21-32) 02/12/20 04:45 BUN 38 mg/dL (7-18) H 02/12/20 04:45 Creatinine 1.66 mg/dL (0.55-1.02) H 02/12/20 04:45 Est GFR (MDRD) Af Amer 38 (>60) L 02/12/20 04:45 Est GFR (MDRD) Non-Af 32 (>60) L 02/12/20 04:45 Glucose 104 mg/dL (65-99) H 02/12/20 04:45 Calcium 8.7 mg/dL (8.5-10.1) 02/12/20 04:45 Corrected Calcium 9.4 mg/dL (8.5-10.1) 02/12/20 04:45 Total Bilirubin 1.20 mg/dL (0.2-1.0) H 02/12/20 04:45 AST 26 Units/L (15-37) 02/12/20 04:45 ALT 23 Units/L (12-78) 02/12/20 04:45 Alkaline Phosphatase 68 Units/L (46-116) 02/12/20 04:45 Total Protein 6.8 g/dL (6.4-8.2) 02/12/20 04:45 Albumin 3.1 g/dL (3.4-5.0) L 02/12/20 04:45 Globulin 3.7 g/dL (2.5-4.5) 02/12/20 04:45 Albumin/Globulin Ratio 0.8 Ratio (1.1-2.1) L 02/12/20 04:45 TSH 3rd Generation 0.967 uIU/mL (0.358-3.74) 02/09/20 21:40 Blood Type A POSITIVE 02/10/20 09:10 Antibody Screen Negative 02/10/20 09:10 Crossmatch See Detail 02/10/20 09:10 - Plan (1) Anemia Status: Acute Qualifiers: Anemia type: unspecified type Qualified Code(s): D64.9 - Anemia, unspecified Plan: MONITOR H&H, NS AT 80 ML/HR, RESUME HOME MEDS (2) CKD (chronic kidney disease) stage 4, GFR 15-29 ml/min Status: Acute Plan: NS AT 80 ML/HR, CONTINUE TO MONITOR (3) Acute hyperkalemia Status: Resolved Plan: NORMAL SALINE AT 80 ML/HR, CONTINUE TO MONITOR (4) Abnormal INR Status: Acute (5) Generalized muscle weakness Status: Acute
[2020-02-12] MEDS: FOLIC ACID TAB 1 MG PO SCH (09:34)
[2020-02-12] MEDS: SYNTHROID 50 mcg TAB PO SCH (09:34)
[2020-02-12] MEDS: SNACK - Diabetic Appropriate PO SCH (20:00)
[2020-02-13 06:17] LABS: BASOPHILS % (AUTO) 0.7 % (0.2-1.0); EOSINOPHILS # (AUTO) 0.2 x10^3/uL (0.0-0.2); EOSINOPHILS % (AUTO) 3.4 % (0.9-2.9); HEMATOCRIT 26.3 % (36.0-47.0); HEMOGLOBIN 8.7 g/dL (12.0-16.0); LYMPHOCYTES # (AUTO) 1.2 X10^3/uL (1.3-2.9); LYMPHOCYTES % (AUTO) 19.9 % (21.0-51.0); MEAN CORPUSCULAR HGB CONC 33.2 g/dL (33.0-35.0); MEAN CORPUSCULAR VOLUME 90.3 fL (80.0-100.0); MONOCYTES # (AUTO) 0.7 x10^3/uL (0.3-0.8); MONOCYTES % (AUTO) 11.1 % (0.0-13.0); NEUTROPHILS # (AUTO) 4.1 x10^3/uL (2.2-4.8); NEUTROPHILS % (AUTO) 64.9 % (42.0-75.0); PLATELET COUNT 167 X10^3/uL (150.0-450.0); RED BLOOD COUNT 2.92 X10^6/uL (3.5-5.4); RED CELL DISTRIBUTION WIDTH 15.1 % (11.6-16.5); WHITE BLOOD COUNT 6.3 X10^3/uL (3.6-10.0)
[2020-02-13 06:28] LABS: ALANINE AMINOTRANSFERASE 19 Units/L (12-78); ALBUMIN 2.7 g/dL (3.4-5.0); ALKALINE PHOSPHATASE 64 Units/L (46-116); ASPARTATE AMINO TRANSFERASE 22 Units/L (15-37); BLOOD UREA NITROGEN 44 mg/dL (7-18); CALCIUM 8.4 mg/dL (8.5-10.1); CARBON DIOXIDE 28.1 mmol/L (21-32); CHLORIDE 103 mmol/L (98-107); COR CA(FOR HYPOALB) 9.4 mg/dL (8.5-10.1); CREATININE 1.47 mg/dL (0.55-1.02); SODIUM 136 mmol/L (136-145); eGFR NON BLACK RACES 37 (>60)
[2020-02-13] MEDS: NS 1000 ML 1,000 ML IV SCH ×3 (08:42→21:00)
[2020-02-13] MEDS: SYNTHROID 50 mcg TAB PO SCH (08:42)
[2020-02-13] MEDS: FOLIC ACID TAB 1 MG PO SCH (08:42)
[2020-02-13] MEDS ORDERED: VITAMIN D (1.25MG) PO SCH (16:00)
[2020-02-13] MEDS ORDERED: TYLENOL 325 MG TAB PO PRN (19:44)
[2020-02-13] MEDS: SNACK - Diabetic Appropriate PO SCH (20:03)
[2020-02-14 06:07] LABS: BASOPHILS % (AUTO) 0.9 % (0.2-1.0); EOSINOPHILS # (AUTO) 0.2 x10^3/uL (0.0-0.2); EOSINOPHILS % (AUTO) 3.1 % (0.9-2.9); HEMATOCRIT 27.3 % (36.0-47.0); HEMOGLOBIN 9.1 g/dL (12.0-16.0); LYMPHOCYTES # (AUTO) 0.8 X10^3/uL (1.3-2.9); LYMPHOCYTES % (AUTO) 15.3 % (21.0-51.0); MEAN CORPUSCULAR HEMOGLOBIN 31.2 pg (27.0-34.0); MEAN CORPUSCULAR HGB CONC 33.5 g/dL (33.0-35.0); MEAN CORPUSCULAR VOLUME 92.9 fL (80.0-100.0); MEAN PLATELET VOLUME 8.3 fL (7.4-11.0); MONOCYTES # (AUTO) 0.6 x10^3/uL (0.3-0.8); MONOCYTES % (AUTO) 11.3 % (0.0-13.0); NEUTROPHILS # (AUTO) 3.6 x10^3/uL (2.2-4.8); NEUTROPHILS % (AUTO) 69.4 % (42.0-75.0); PLATELET COUNT 180 X10^3/uL (150.0-450.0); RED BLOOD COUNT 2.93 X10^6/uL (3.5-5.4); RED CELL DISTRIBUTION WIDTH 14.9 % (11.6-16.5); WHITE BLOOD COUNT 5.2 X10^3/uL (3.6-10.0)
[2020-02-14 06:16] LABS: ALANINE AMINOTRANSFERASE 14 Units/L (12-78); ALBUMIN 2.6 g/dL (3.4-5.0); ALKALINE PHOSPHATASE 62 Units/L (46-116); ASPARTATE AMINO TRANSFERASE 22 Units/L (15-37); BLOOD UREA NITROGEN 31 mg/dL (7-18); CALCIUM 8.3 mg/dL (8.5-10.1); CARBON DIOXIDE 27.4 mmol/L (21-32); CHLORIDE 107 mmol/L (98-107); COR CA(FOR HYPOALB) 9.4 mg/dL (8.5-10.1); CREATININE 1.18 mg/dL (0.55-1.02); SODIUM 138 mmol/L (136-145); TOTAL PROTEIN 5.9 g/dL (6.4-8.2); eGFR NON BLACK RACES 47 (>60)
[2020-02-14] MEDS: SYNTHROID 50 mcg TAB PO SCH (08:54)
[2020-02-14] MEDS: FOLIC ACID TAB 1 MG PO SCH (08:54)
[2020-02-14 12:00] LABS: BILIRUBIN,URINE NEGATIVE (NEGATIVE); BLOOD/HEMOGLOBIN,URINE NEGATIVE (NEGATIVE); GLUCOSE, URINE NEGATIVE (NEGATIVE); KETONES,URINE NEGATIVE (NEGATIVE); LEUKOCYTE ESTERASE ,URINE NEGATIVE (NEGATIVE); NITRITES,URINE NEGATIVE (NEGATIVE); PH,URINE 6.5 (5.0 - 8.0); PROTEIN,URINE NEGATIVE (NEGATIVE); UROBILINOGEN,URINE 1+ (NORMAL)
[2020-02-14 12:14] LABS: APPEARANCE,URINE CLEAR (CLEAR); COLOR,URINE YELLOW (YELLOW)
[2020-02-14 12:16] LABS: BACTERIA,URINE TRACE /HPF (NEGATIVE); RBC,URINE 0-2 /HPF (0-3); SQUAMOUS EPITHELIAL CELL,UR FEW /HPF (NEGATIVE)
[2020-02-14 16:07] VITALS: BP 138/76
== END 2020-02-14 15:40 | disposition home health service (06) | DRG 812 ==
LOC: ER 20:25 → MED/SURG 02-10 01:16
PROVIDERS: ADMIT Internal Medicine; ATTEND Internal Medicine
DX: E87.5 Hyperkalemia; E78.2 Mixed hyperlipidemia; N18.4 Chronic kidney disease, stage 4 (severe); R26.81 Unsteadiness on feet; M62.81 Muscle weakness (generalized); I48.91 Unspecified atrial fibrillation; R63.0 Anorexia; R79.1 Abnormal coagulation profile; D64.89 Other specified anemias; N17.8 Other acute kidney failure; I10 Essential (primary) hypertension; R53.1 Weakness
CPT/HCPCS: 36415; 36430; 80053; 81001; 82270; 84443; 85014; 85018; 85025; 85610; 86850; 86900; 86901; 86922; 87086; 93005; 94760; 96365; 96367; 96372; 96374; 96375; 97162; 97166; 97530; 97535; 99284; A4216; A4222; J1200; J1815; J1940; J3430; J3490; J7030; J7040; P9016; P9017

== ENCOUNTER 2024-10-18 10:09 | Inpatient (IN) ==
--- NOTE | 2024-10-18 10:21 | DR.GENAD ---
HPI Time Seen Time Seen by Provider: 10/18/24 10:21 PMH PMH Past Medical History: Arthritis, Asthma, CVA, Hypertension and Hypothyroidism Past Surgical History: Yes Surgical History: Appendectomy and CHAIR Surgery Family History Family Medical History: Diabetes Mellitus and Hypertension Social History Do you use any recreational Drugs:: No PE Vital Signs Vitals: Vital Signs Temperature 98.5 F Pulse Rate 123 Pulse Rate 114 Pulse Rate 112 Pulse Rate 114 Pulse Rate 112 Pulse Rate 107 Pulse Rate 104 Pulse Rate 105 Pulse Rate 111 Pulse Rate 106 Pulse Rate 100 Pulse Rate 99 Pulse Rate 99 Pulse Rate 99 Pulse Rate 97 Pulse Rate 100 Pulse Rate 97 Pulse Rate 118 Pulse Rate 111 Pulse Rate 116 Pulse Rate 108 Pulse Rate 117 Pulse Rate 123 Pulse Rate 116 Respiratory Rate 36 Respiratory Rate 35 Respiratory Rate 36 Respiratory Rate 35 Respiratory Rate 36 Respiratory Rate 33 Respiratory Rate 31 Respiratory Rate 32 Respiratory Rate 33 Respiratory Rate 34 Respiratory Rate 33 Respiratory Rate 33 Respiratory Rate 34 Respiratory Rate 33 Respiratory Rate 32 Respiratory Rate 32 Respiratory Rate 34 Respiratory Rate 31 Respiratory Rate 33 Respiratory Rate 30 Respiratory Rate 32 Respiratory Rate 31 Respiratory Rate 35 Respiratory Rate 35 Respiratory Rate 28 Blood Pressure 147/63 Blood Pressure 133/80 Blood Pressure 141/65 Blood Pressure 114/81 Blood Pressure 154/71 Blood Pressure 159/71 Blood Pressure 126/61 Blood Pressure 143/65 Blood Pressure 149/69 Blood Pressure 149/81 Blood Pressure 131/71 Blood Pressure 123/66 Blood Pressure 144/107 Blood Pressure 136/77 Blood Pressure 132/72 Blood Pressure 130/99 O2 Sat by Pulse Oximetry 98 O2 Sat by Pulse Oximetry 98 O2 Sat by Pulse Oximetry 98 O2 Sat by Pulse Oximetry 97 O2 Sat by Pulse Oximetry 98 O2 Sat by Pulse Oximetry 98 O2 Sat by Pulse Oximetry 98 O2 Sat by Pulse Oximetry 98 O2 Sat by Pulse Oximetry 98 O2 Sat by Pulse Oximetry 97 O2 Sat by Pulse Oximetry 99 O2 Sat by Pulse Oximetry 97 O2 Sat by Pulse Oximetry 97 O2 Sat by Pulse Oximetry 96 O2 Sat by Pulse Oximetry 95 O2 Sat by Pulse Oximetry 94 O2 Sat by Pulse Oximetry 94 O2 Sat by Pulse Oximetry 95 O2 Sat by Pulse Oximetry 89 O2 Sat by Pulse Oximetry 89 O2 Sat by Pulse Oximetry 85 ROR Labs Reviewed 10/18/24 10:56 10/18/24 10:56 Laboratory: WBC 7.8 X10^3/uL (3.6-10.0) 10/18/24 10:56 RBC 4.53 X10^6/uL (3.5-5.4) 10/18/24 10:56 Hgb 13.4 g/dL (12.0-16.0) 10/18/24 10:56 Hct 41.1 % (36.0-47.0) 10/18/24 10:56 MCV 90.8 fL (80.0-100.0) 10/18/24 10:56 MCH 29.6 pg (27.0-34.0) 10/18/24 10:56 MCHC 32.6 g/dL (33.0-35.0) L 10/18/24 10:56 RDW 14.1 % (11.6-16.5) 10/18/24 10:56 Plt Count 136 X10^3/uL (150.0-450.0) L 10/18/24 10:56 MPV 9.2 fL (7.4-11.0) 10/18/24 10:56 Neut % (Auto) 86.8 % (42.0-75.0) H 10/18/24 10:56 Lymph % (Auto) 3.0 % (21.0-51.0) L 10/18/24 10:56 [place] % (Auto) 9.7 % (0.0-13.0) 10/18/24 10:56 Eos % (Auto) 0.1 % (0.9-2.9) L 10/18/24 10:56 Baso % (Auto) 0.4 % (0.2-1.0) 10/18/24 10:56 Neut # (Auto) 6.8 x10^3/uL (2.2-4.8) H 10/18/24 10:56 Lymph # (Auto) 0.2 X10^3/uL (1.3-2.9) L 10/18/24 10:56 [place] # (Auto) 0.8 x10^3/uL (0.3-0.8) 10/18/24 10:56 Eos # (Auto) 0.0 x10^3/uL (0.0-0.2) 10/18/24 10:56 Baso # (Auto) 0.0 X10^3/uL (0.0-0.1) 10/18/24 10:56 Absolute Nucleated RBC 0.2 /100WBC 10/18/24 10:56 D-Dimer 3.11 ug/ml (0.0-0.57) H 10/18/24 12:58 Sample Site Rb 10/18/24 10:42 ABG pH 7.470 (7.35-7.45) H 10/18/24 10:42 ABG pCO2 46.0 mmHg (35.0-45.0) H 10/18/24 10:42 ABG pO2 44.0 mmHg (80.0-100.0) L* 10/18/24 10:42 ABG HCO3 33.5 mmol/L (22-26) H* 10/18/24 10:42 ABG O2 Saturation 83.0 % (90-100) L* 10/18/24 10:42 ABG Base Excess 8.7 mmol/L (-2.0-2.0) H 10/18/24 10:42 Javier Test Na 10/18/24 10:42 A-a Gradient 48.0 mmHg 10/18/24 10:42 FiO2 21.0 10/18/24 10:42 Blood Gas Comments Pt gi well. kg 10/18/24 10:42 Sodium 141 mmol/L (136-145) 10/18/24 10:56 Corrected Sodium TNP 10/18/24 10:56 Potassium 4.3 mmol/L (3.5-5.1) 10/18/24 10:56 Chloride 103 mmol/L (98-107) 10/18/24 10:56 Carbon Dioxide 32.7 mmol/L (21-32) H 10/18/24 10:56 BUN 24 mg/dL (7-18) H 10/18/24 10:56 Creatinine 1.10 mg/dL (0.55-1.02) H 10/18/24 10:56 Est GFR (MDRD) Af Amer > 60 (>60) 10/18/24 10:56 Est GFR (MDRD) Non-Af 50 (>60) L 10/18/24 10:56 Glucose 101 mg/dL (65-99) H 10/18/24 10:56 Lactic Acid 1.7 mmol/L (0.4-2.0) 10/18/24 12:58 Calcium 9.0 mg/dL (8.5-10.1) 10/18/24 10:56 Corrected Calcium 9.6 mg/dL (8.5-10.1) 10/18/24 10:56 Magnesium 1.6 mg/dL (2.0-2.9) L 10/18/24 10:56 Total Bilirubin 1.20 mg/dL (0.2-1.0) H 10/18/24 10:56 AST 57 Units/L (15-37) H 10/18/24 10:56 ALT 39 Units/L (12-78) 10/18/24 10:56 Alkaline Phosphatase 127 Units/L (46-116) H 10/18/24 10:56 B-Natriuretic Peptide 275 pg/mL (0-79) H 10/18/24 10:56 Total Protein 7.7 g/dL (6.4-8.2) 10/18/24 10:56 Albumin 3.3 g/dL (3.4-5.0) L 10/18/24 10:56 Globulin 4.4 g/dL (2.5-4.5) 10/18/24 10:56 Albumin/Globulin Ratio 0.8 Ratio (1.1-2.1) L 10/18/24 10:56 SARS-CoV-2 (PCR) Negative (NEGATIVE) 10/18/24 10:13 Influenza Type A (PCR) Negative (NEGATIVE) 10/18/24 10:13 Influenza Type B (PCR) Negative (NEGATIVE) 10/18/24 10:13 RSV (PCR) Negative (NEGATIVE) 10/18/24 10:13 Opioid Opioid Risk Tool Age (Carlos box if 16-45): No History of Preadolescent Sexual Abuse: No Total: 0 Total Score Risk Category: Low Risk Copyright: Baljit WRIGHT predicting aberrant behaviors Discharge Plan Diagnosis Discharge Problem: Pneumonia, Hypoxia, Hypomagnesemia, Acute dyspnea, Atrial fibrillation with RVR Discharge Plan Patient Disposition: 09 ADMITTED INPATIENT Condition: Stable Orders to Discharge Patient Discharge Orders: Transfer (Routine); Ordered 10/18/24 Ordered By: KAEL PIÑA
[2024-10-18 10:35] VITALS: BMI 23.6
[2024-10-18 10:49] LABS: ABG BASE EXCESS 8.7 mmol/L (-2.0-2.0); ABG HCO3 33.5 mmol/L (22-26)
--- NOTE | 2024-10-18 11:01 | EKG ---
Test Reason : CHEST PAIN Blood Pressure : */* mmHG Vent. Rate : 115 BPM Atrial Rate : * BPM P-R Int : * ms QRS Dur : 88 ms QT Int : 330 ms P-R-T Axes : * 92 239 degrees QTc Int : 456 ms Atrial fibrillation with rapid ventricular response Rightward axis Biventricular hypertrophy Nonspecific ST and T wave abnormality Abnormal ECG When compared with ECG of 11-JUL-2024 13:04, Non-specific change in ST segment in Inferior leads Nonspecific T wave abnormality now evident in Inferior leads Confirmed by Eric Paul MD ([id number]) on 10/18/2024 11:36:32 AM Referred By: Confirmed By: Eric Paul MD
[2024-10-18 11:07] LABS: BASOPHILS % (AUTO) 0.4 % (0.2-1.0); EOSINOPHILS % (AUTO) 0.1 % (0.9-2.9); HEMATOCRIT 41.1 % (36.0-47.0); HEMOGLOBIN 13.4 g/dL (12.0-16.0); LYMPHOCYTES # (AUTO) 0.2 X10^3/uL (1.3-2.9); MEAN CORPUSCULAR HEMOGLOBIN 29.6 pg (27.0-34.0); MEAN CORPUSCULAR HGB CONC 32.6 g/dL (33.0-35.0); MEAN CORPUSCULAR VOLUME 90.8 fL (80.0-100.0); MEAN PLATELET VOLUME 9.2 fL (7.4-11.0); MONOCYTES # (AUTO) 0.8 x10^3/uL (0.3-0.8); MONOCYTES % (AUTO) 9.7 % (0.0-13.0); NEUTROPHILS # (AUTO) 6.8 x10^3/uL (2.2-4.8); NEUTROPHILS % (AUTO) 86.8 % (42.0-75.0); PLATELET COUNT 136 X10^3/uL (150.0-450.0); RED BLOOD COUNT 4.53 X10^6/uL (3.5-5.4); RED CELL DISTRIBUTION WIDTH 14.1 % (11.6-16.5); WHITE BLOOD COUNT 7.8 X10^3/uL (3.6-10.0)
[2024-10-18 11:16] LABS: ALANINE AMINOTRANSFERASE 39 Units/L (12-78); ALBUMIN 3.3 g/dL (3.4-5.0); ALKALINE PHOSPHATASE 127 Units/L (46-116); ASPARTATE AMINO TRANSFERASE 57 Units/L (15-37); BLOOD UREA NITROGEN 24 mg/dL (7-18); CARBON DIOXIDE 32.7 mmol/L (21-32); CHLORIDE 103 mmol/L (98-107); COR CA(FOR HYPOALB) 9.6 mg/dL (8.5-10.1); GLUCOSE 101 mg/dL (65-99); SODIUM 141 mmol/L (136-145); TOTAL PROTEIN 7.7 g/dL (6.4-8.2); eGFR NON BLACK RACES 50 (>60)
[2024-10-18 11:21] LABS: POTASSIUM 4.3 mmol/L (3.5-5.1)
--- NOTE | 2024-10-18 11:25 | RAD ---
EXAM:CHESTHISTORY:SOB, COUGH;COMPARISON:July 11, 2024.TECHNIQUE:Frontal view of the chest was submitted for interpretation.FINDINGS:The cardiomediastinal silhouette is again seen to be enlarged. Lungs show right perihilar and right basilar pneumonia.IMPRESSION:Right perihilar and right basilar pneumonia.THIS IS AN ELECTRONICALLY VERIFIED FINAL REPORT10/18/2024 11:21 AM - Electronically signed by Ha Vines MD
[2024-10-18] MEDS: CARDIZEM INJ 50 MG VIAL IV ONE (11:41)
[2024-10-18] MEDS: ROCEPHIN VIAL 1 GRAM 1 G in NS 100 ML IV 100 ML IV ONE (12:04)
[2024-10-18] MEDS: ROCEPHIN VIAL 1 GRAM IV ONE (12:10)
[2024-10-18 13:40] LABS: MAGNESIUM 1.6 mg/dL (2.0-2.9)
[2024-10-18] MEDS: CARDIZEM INJ 50 MG VIAL IVP ONE (14:30)
--- NOTE | 2024-10-18 14:36 | CT ---
EXAM:CT PULMONARY ANGIOGRAM CHEST WITH CONTRAST (PE PROTOCOL)HISTORY:hypoxia;COMPARISON:None .TECHNIQUE:Axial CT images were obtained through the chest after the intravenous administration of contrast. Coronal reformatted images were included. Maximum intensity projection (MIP) images were performed per pulmonary angiogram protocol.Informed written consent was obtained prior to contrast administration.All CT scans at this facility use dose modulation, iterative reconstruction, and/or weight based dosing when appropriate to reduce radiation dose to as low as reasonably achievable.FINDINGS:HEART AND PULMONARY ARTERIES: No evidence of right ventricular strain. No filling defects in the pulmonary arteries to suggest emboli. The heart is enlarged.SUPPORT DEVICES: NoneLYMPH NODES: No pathologically enlarged nodes.LUNGS AND PLEURA: Lungs demonstrate patchy areas of pneumonia in the lung bases bilaterally.AIRWAYS: NormalUPPER ABDOMEN: NormalBONES: NormalIMPRESSION:Cardiomegaly. Sequela of right heart failure suspected with right atrial enlargement as well as reflux into a distended IVC and hepatic veins. No evidence of pulmonary embolism.Areas of bibasilar consolidative pneumonia are apparent.THIS IS AN ELECTRONICALLY VERIFIED FINAL REPORT10/18/2024 2:33 PM - Electronically signed by Ha Vines MD
[2024-10-18] MEDS ORDERED: VITAMIN D (1.25MG) PO SCH (15:00)
[2024-10-18 15:08] LABS: BILIRUBIN,URINE NEGATIVE (NEGATIVE); BLOOD/HEMOGLOBIN,URINE 1+ (NEGATIVE); GLUCOSE, URINE NEGATIVE (NEGATIVE); KETONES,URINE NEGATIVE (NEGATIVE); LEUKOCYTE ESTERASE ,URINE NEGATIVE (NEGATIVE); NITRITES,URINE NEGATIVE (NEGATIVE); PROTEIN,URINE 2+ (NEGATIVE); UROBILINOGEN,URINE NORMAL (NORMAL)
[2024-10-18] MEDS: ROCEPHIN VIAL 1 GRAM ONE (15:12)
[2024-10-18] MEDS: CONSULT PHARMACY - POTASSIUM & MAGNESIUM XX SCH (15:14)
[2024-10-18 15:24] LABS: APPEARANCE,URINE CLEAR (CLEAR); BACTERIA,URINE NEGATIVE /HPF (NEGATIVE); COLOR,URINE YELLOW (YELLOW); SQUAMOUS EPITHELIAL CELL,UR RARE /HPF (NEGATIVE)
[2024-10-18] MEDS: CARDIZEM CD 120 MG 24-HR PO STA (15:29)
[2024-10-18] MEDS ORDERED: NS 1/2 1,000 ML IV 1,000 ML IV ONE (15:33)
[2024-10-18] MEDS: ZITHROMAX INJ 500 MG VIAL 500 MG in NS 250 ML IV 250 ML IV SCH (15:52)
[2024-10-18] MEDS: MAG-OX TAB PO SCH (15:53)
[2024-10-18] MEDS: NS 1/2 1,000 ML IV 1,000 ML IV SCH (15:53)
[2024-10-18] MEDS: ROBITUSSIN DM PO SCH (16:00)
[2024-10-18] MEDS: LOVENOX INJ 40 MG SYR SC SCH (16:03)
[2024-10-18] MEDS: TOPROL XL PO SCH (20:26)
[2024-10-18] MEDS: XOPENEX 1.25 MG/3 ML NEBULE NEB SCH (20:34)
[2024-10-19 05:37] LABS: BASOPHILS % (AUTO) 0 % (0.2-1.0); HEMATOCRIT 34.1 % (36.0-47.0); HEMOGLOBIN 11.4 g/dL (12.0-16.0); LYMPHOCYTES # (AUTO) 0.5 X10^3/uL (1.3-2.9); LYMPHOCYTES % (AUTO) 4.1 % (21.0-51.0); MEAN CORPUSCULAR HGB CONC 33.4 g/dL (33.0-35.0); MEAN CORPUSCULAR VOLUME 89.7 fL (80.0-100.0); MEAN PLATELET VOLUME 8.8 fL (7.4-11.0); MONOCYTES # (AUTO) 0.9 x10^3/uL (0.3-0.8); MONOCYTES % (AUTO) 7.4 % (0.0-13.0); NEUTROPHILS # (AUTO) 11.3 x10^3/uL (2.2-4.8); NEUTROPHILS % (AUTO) 88.5 % (42.0-75.0); PLATELET COUNT 117 X10^3/uL (150.0-450.0); RED CELL DISTRIBUTION WIDTH 14.3 % (11.6-16.5); WHITE BLOOD COUNT 12.7 X10^3/uL (3.6-10.0)
[2024-10-19 05:50] LABS: ALANINE AMINOTRANSFERASE 27 Units/L (12-78); ALBUMIN 2.6 g/dL (3.4-5.0); ALKALINE PHOSPHATASE 91 Units/L (46-116); ASPARTATE AMINO TRANSFERASE 31 Units/L (15-37); BLOOD UREA NITROGEN 19 mg/dL (7-18); CALCIUM 8.5 mg/dL (8.5-10.1); CARBON DIOXIDE 33.2 mmol/L (21-32); CHLORIDE 104 mmol/L (98-107); COR CA(FOR HYPOALB) 9.6 mg/dL (8.5-10.1); COR NA(FOR HYPERGLY) 142 mmol/L (136-145); CREATININE 0.99 mg/dL (0.55-1.02); GLUCOSE 113 mg/dL (65-99); MAGNESIUM 1.6 mg/dL (2.0-2.9); POTASSIUM 3.4 mmol/L (3.5-5.1); SODIUM 142 mmol/L (136-145); TOTAL PROTEIN 6.4 g/dL (6.4-8.2); eGFR NON BLACK RACES 57 (>60)
[2024-10-19] MEDS ORDERED: CONSULT PHARMACY - POTASSIUM & MAGNESIUM XX SCH (06:00)
--- NOTE | 2024-10-19 08:52 | DR.H&P ---
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 Family History Family Medical History: Diabetes Mellitus and Hypertension Social History Does patient currently use any type of tobacco product: No Have you used tobacco products in the last 12 months: No Type of Tobacco Use: None Does any household member use tobacco: No Alcohol Use: None Drug Use: None Medications Home Medications: Home Medications Medication Instructions Recorded Confirmed Type ergocalciferol (vitamin D2) 1,250 50,000 unit PO WEEKLY 02/09/20 10/18/24 History mcg (50,000 unit) capsule (Vitamin D2) levothyroxine 50 mcg tablet 50 mcg PO DAILY 02/09/20 10/18/24 History furosemide 20 mg tablet 20 mg PO DAILY 05/28/21 10/18/24 History diltiazem HCl 120 mg capsule,24 120 mg PO QDAY 07/11/24 10/18/24 History hr,extended release gabapentin 100 mg capsule 100 mg PO QDAY PRN chronic pain 07/11/24 10/18/24 History metoprolol succinate 50 mg 50 mg PO QPM 07/11/24 10/18/24 History tablet,extended release 24 hr sennosides 8.6 mg tablet (senna) 8.6 mg PO DAILY 07/11/24 10/18/24 History albuterol sulfate 90 mcg/actuation 2 puff inhalation Q4-6H PRN 10/18/24 10/18/24 History aerosol inhaler aspirin 81 mg tablet,delayed 81 mg PO QDAY 10/18/24 10/18/24 History release isosorbide mononitrate 30 mg 30 mg PO QDAY 10/18/24 10/18/24 History tablet,extended release 24 hr nystatin 100,000 unit/gram topical 1 applic topical TID 10/18/24 10/18/24 History ointment Allergies Allergies Allergy/AdvReac Type Severity Reaction Status Date / Time No Known Drug Allergies Allergy Verified 10/18/24 10:27 Labs 10/19/24 05:19 10/19/24 05:19 Labs: Laboratory WBC 12.7 X10^3/uL (3.6-10.0) H 10/19/24 05:19 RBC 3.80 X10^6/uL (3.5-5.4) 10/19/24 05:19 Hgb 11.4 g/dL (12.0-16.0) L D 10/19/24 05:19 Hct 34.1 % (36.0-47.0) L 10/19/24 05:19 MCV 89.7 fL (80.0-100.0) 10/19/24 05:19 MCH 30.0 pg (27.0-34.0) 10/19/24 05:19 MCHC 33.4 g/dL (33.0-35.0) 10/19/24 05:19 RDW 14.3 % (11.6-16.5) 10/19/24 05:19 Plt Count 117 X10^3/uL (150.0-450.0) L 10/19/24 05:19 MPV 8.8 fL (7.4-11.0) 10/19/24 05:19 Neut % (Auto) 88.5 % (42.0-75.0) H 10/19/24 05:19 Lymph % (Auto) 4.1 % (21.0-51.0) L 10/19/24 05:19 [place] % (Auto) 7.4 % (0.0-13.0) 10/19/24 05:19 Eos % (Auto) 0.0 % (0.9-2.9) L 10/19/24 05:19 Baso % (Auto) 0 % (0.2-1.0) L 10/19/24 05:19 Neut # (Auto) 11.3 x10^3/uL (2.2-4.8) H 10/19/24 05:19 Lymph # (Auto) 0.5 X10^3/uL (1.3-2.9) L 10/19/24 05:19 [place] # (Auto) 0.9 x10^3/uL (0.3-0.8) H 10/19/24 05:19 Eos # (Auto) 0.0 x10^3/uL (0.0-0.2) 10/19/24 05:19 Baso # (Auto) 0.0 X10^3/uL (0.0-0.1) 10/19/24 05:19 Absolute Nucleated RBC 0.0 /100WBC 10/19/24 05:19 D-Dimer 3.11 ug/ml (0.0-0.57) H 10/18/24 12:58 Sample Site Rb 10/18/24 10:42 ABG pH 7.470 (7.35-7.45) H 10/18/24 10:42 ABG pCO2 46.0 mmHg (35.0-45.0) H 10/18/24 10:42 ABG pO2 44.0 mmHg (80.0-100.0) L* 10/18/24 10:42 ABG HCO3 33.5 mmol/L (22-26) H* 10/18/24 10:42 ABG O2 Saturation 83.0 % (90-100) L* 10/18/24 10:42 ABG Base Excess 8.7 mmol/L (-2.0-2.0) H 10/18/24 10:42 Javier Test Na 10/18/24 10:42 A-a Gradient 48.0 mmHg 10/18/24 10:42 FiO2 21.0 10/18/24 10:42 Blood Gas Comments Pt gi well. kg 10/18/24 10:42 Sodium 142 mmol/L (136-145) 10/19/24 05:19 Corrected Sodium 142 mmol/L (136-145) 10/19/24 05:19 Potassium 3.4 mmol/L (3.5-5.1) L 10/19/24 05:19 Chloride 104 mmol/L (98-107) 10/19/24 05:19 Carbon Dioxide 33.2 mmol/L (21-32) H 10/19/24 05:19 BUN 19 mg/dL (7-18) H 10/19/24 05:19 Creatinine 0.99 mg/dL (0.55-1.02) 10/19/24 05:19 Est GFR (MDRD) Af Amer > 60 (>60) 10/19/24 05:19 Est GFR (MDRD) Non-Af 57 (>60) L 10/19/24 05:19 Glucose 113 mg/dL (65-99) H 10/19/24 05:19 Lactic Acid 1.7 mmol/L (0.4-2.0) 10/18/24 12:58 Calcium 8.5 mg/dL (8.5-10.1) 10/19/24 05:19 Corrected Calcium 9.6 mg/dL (8.5-10.1) 10/19/24 05:19 Magnesium 1.6 mg/dL (2.0-2.9) L 10/19/24 05:19 Total Bilirubin 1.10 mg/dL (0.2-1.0) H 10/19/24 05:19 AST 31 Units/L (15-37) 10/19/24 05:19 ALT 27 Units/L (12-78) 10/19/24 05:19 Alkaline Phosphatase 91 Units/L (46-116) 10/19/24 05:19 B-Natriuretic Peptide 465 pg/mL (0-79) H 10/19/24 05:19 Total Protein 6.4 g/dL (6.4-8.2) 10/19/24 05:19 Albumin 2.6 g/dL (3.4-5.0) L 10/19/24 05:19 Globulin 3.8 g/dL (2.5-4.5) 10/19/24 05:19 Albumin/Globulin Ratio 0.7 Ratio (1.1-2.1) L 10/19/24 05:19 Specimen Type Clean catch urine 10/18/24 14:51 Urine Color Yellow (YELLOW) 10/18/24 14:51 Urine Appearance Clear (CLEAR) 10/18/24 14:51 Urine pH 6.0 (5.0 - 8.0) 10/18/24 14:51 Ur Specific [place] 1.010 (1.000-1.030) 10/18/24 14:51 Urine Protein 2+ (NEGATIVE) 10/18/24 14:51 Urine Glucose (UA) Negative (NEGATIVE) 10/18/24 14:51 Urine Ketones Negative (NEGATIVE) 10/18/24 14:51 Urine Blood 1+ (NEGATIVE) 10/18/24 14:51 Urine Nitrite Negative (NEGATIVE) 10/18/24 14:51 Urine Bilirubin Negative (NEGATIVE) 10/18/24 14:51 Urine Urobilinogen Normal (NORMAL) 10/18/24 14:51 Ur Leukocyte Esterase Negative (NEGATIVE) 10/18/24 14:51 Urine RBC 3-5 /HPF (0-3) A 10/18/24 14:51 Urine WBC 0-2 /HPF (0-5) 10/18/24 14:51 Ur Squamous Epith Cells Rare /HPF (NEGATIVE) 10/18/24 14:51 Amorphous Sediment Trace /HPF (NEGATIVE) 10/18/24 14:51 Urine Bacteria Negative /HPF (NEGATIVE) 10/18/24 14:51 Ur Culture Indicated? No/not indicated 10/18/24 14:51 SARS-CoV-2 (PCR) Negative (NEGATIVE) 10/18/24 10:13 Influenza Type A (PCR) Negative (NEGATIVE) 10/18/24 10:13 Influenza Type B (PCR) Negative (NEGATIVE) 10/18/24 10:13 RSV (PCR) Negative (NEGATIVE) 10/18/24 10:13 Physical Exam Vital Signs: Vital Signs Temperature 99.5 F Pulse Rate [Brachial] 99 Pulse Rate [Brachial] 88 Pulse Rate [Brachial] 100 Pulse Rate [Brachial] 84 Pulse Rate [Brachial] 99 Pulse Rate [Brachial] 101 Pulse Rate 82 Respiratory Rate 27 Respiratory Rate 28 Respiratory Rate 28 Respiratory Rate 29 Respiratory Rate 34 Respiratory Rate 26 Blood Pressure [Right Arm] 116/52 Blood Pressure [Right Arm] 116/56 Blood Pressure [Right Arm] 116/56 Blood Pressure [Right Arm] 112/58 Blood Pressure [Right Arm] 100/57 Blood Pressure [Right Arm] 106/58 O2 Sat by Pulse Oximetry 99 O2 Sat by Pulse Oximetry 96 O2 Sat by Pulse Oximetry 97 O2 Sat by Pulse Oximetry 99 O2 Sat by Pulse Oximetry 100 O2 Sat by Pulse Oximetry 100 O2 Sat by Pulse Oximetry 97
[2024-10-19] MEDS: ROCEPHIN VIAL 1 GRAM 1 G in NS 100 ML IV 100 ML IV SCH (08:58)
[2024-10-19] MEDS ORDERED: LASIX PO SCH (09:00)
[2024-10-19] MEDS: K-DUR TAB 20 MEQ PO SCH (09:06)
[2024-10-19] MEDS: MAG-OX TAB PO SCH (09:06)
[2024-10-19] MEDS: CARDIZEM CD 120 MG 24-HR PO SCH (09:06)
[2024-10-19] MEDS: IMDUR PO SCH (09:06)
[2024-10-19] MEDS: SENOKOT PO SCH (09:07)
[2024-10-19] MEDS: ASPIRIN EC 81 MG PO SCH (09:07)
[2024-10-19] MEDS: VISBIOME PROBIOTIC CAP 112.5 B or equivalent PO SCH (09:07)
[2024-10-19] MEDS: SYNTHROID 50 mcg TAB PO SCH (09:07)
[2024-10-19] MEDS: LASIX IVP SCH (09:47)
[2024-10-19] MEDS: ROBITUSSIN DM PO SCH (16:35)
--- NOTE | 2024-10-19 17:30 | DR.H&P ---
H&P History & Physical for Day of: H&P Date: 10/18/24 Chief Complaint Chief Complaint: SOB History of Present Illness History of Present Illness: PT IS 84 BF, ER ADMISSION PRESENTING WITH CO CCC, SOB ONSET THE END OF LAST WEEK. PT REPORTS SHE WAS HAVING A RUNNY NOSE WITHOUT KNOWN FEVER. PT REPORT SHE CONTINUED WITH COUGH, THICK MUCOUS AND THEN INCREASED WEAKNESS AND SOB. PT HAS PMH OF AFIB, CHF, CAD, OA, HX CVA AND HTN. PT ADMITTED FOR EVALUATION AND TREATMENT OF ACUTE ILLNESS. 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 Family History Family Medical History: Diabetes Mellitus and Hypertension Social History Does patient currently use any type of tobacco product: No Have you used tobacco products in the last 12 months: No Type of Tobacco Use: None Does any household member use tobacco: No Alcohol Use: None Drug Use: None Medications Home Medications: Home Medications Medication Instructions Recorded Confirmed Type ergocalciferol (vitamin D2) 1,250 50,000 unit PO WEEKLY 02/09/20 10/18/24 History mcg (50,000 unit) capsule (Vitamin D2) levothyroxine 50 mcg tablet 50 mcg PO DAILY 02/09/20 10/18/24 History furosemide 20 mg tablet 20 mg PO DAILY 05/28/21 10/18/24 History diltiazem HCl 120 mg capsule,24 120 mg PO QDAY 07/11/24 10/18/24 History hr,extended release gabapentin 100 mg capsule 100 mg PO QDAY PRN chronic pain 07/11/24 10/18/24 History metoprolol succinate 50 mg 50 mg PO QPM 07/11/24 10/18/24 History tablet,extended release 24 hr sennosides 8.6 mg tablet (senna) 8.6 mg PO DAILY 07/11/24 10/18/24 History albuterol sulfate 90 mcg/actuation 2 puff inhalation Q4-6H PRN 10/18/24 10/18/24 History aerosol inhaler aspirin 81 mg tablet,delayed 81 mg PO QDAY 10/18/24 10/18/24 History release isosorbide mononitrate 30 mg 30 mg PO QDAY 10/18/24 10/18/24 History tablet,extended release 24 hr nystatin 100,000 unit/gram topical 1 applic topical TID 10/18/24 10/18/24 H istory ointment Allergies Allergies Allergy/AdvReac Type Severity Reaction Status Date / Time No Known Drug Allergies Allergy Verified 10/18/24 10:27 Labs 10/19/24 05:19 10/19/24 05:19 Labs: Laboratory WBC 12.7 X10^3/uL (3.6-10.0) H 10/19/24 05:19 RBC 3.80 X10^6/uL (3.5-5.4) 10/19/24 05:19 Hgb 11.4 g/dL (12.0-16.0) L D 10/19/24 05:19 Hct 34.1 % (36.0-47.0) L 10/19/24 05:19 MCV 89.7 fL (80.0-100.0) 10/19/24 05:19 MCH 30.0 pg (27.0-34.0) 10/19/24 05:19 MCHC 33.4 g/dL (33.0-35.0) 10/19/24 05:19 RDW 14.3 % (11.6-16.5) 10/19/24 05:19 Plt Count 117 X10^3/uL (150.0-450.0) L 10/19/24 05:19 MPV 8.8 fL (7.4-11.0) 10/19/24 05:19 Neut % (Auto) 88.5 % (42.0-75.0) H 10/19/24 05:19 Lymph % (Auto) 4.1 % (21.0-51.0) L 10/19/24 05:19 [place] % (Auto) 7.4 % (0.0-13.0) 10/19/24 05:19 Eos % (Auto) 0.0 % (0.9-2.9) L 10/19/24 05:19 Baso % (Auto) 0 % (0.2-1.0) L 10/19/24 05:19 Neut # (Auto) 11.3 x10^3/uL (2.2-4.8) H 10/19/24 05:19 Lymph # (Auto) 0.5 X10^3/uL (1.3-2.9) L 10/19/24 05:19 [place] # (Auto) 0.9 x10^3/uL (0.3-0.8) H 10/19/24 05:19 Eos # (Auto) 0.0 x10^3/uL (0.0-0.2) 10/19/24 05:19 Baso # (Auto) 0.0 X10^3/uL (0.0-0.1) 10/19/24 05:19 Absolute Nucleated RBC 0.0 /100WBC 10/19/24 05:19 D-Dimer 3.11 ug/ml (0.0-0.57) H 10/18/24 12:58 Sample Site Rb 10/18/24 10:42 ABG pH 7.470 (7.35-7.45) H 10/18/24 10:42 ABG pCO2 46.0 mmHg (35.0-45.0) H 10/18/24 10:42 ABG pO2 44.0 mmHg (80.0-100.0) L* 10/18/24 10:42 ABG HCO3 33.5 mmol/L (22-26) H* 10/18/24 10:42 ABG O2 Saturation 83.0 % (90-100) L* 10/18/24 10:42 ABG Base Excess 8.7 mmol/L (-2.0-2.0) H 10/18/24 10:42 Javier Test Na 10/18/24 10:42 A-a Gradient 48.0 mmHg 10/18/24 10:42 FiO2 21.0 10/18/24 10:42 Blood Gas Comments Pt gi well. kg 10/18/24 10:42 Sodium 142 mmol/L (136-145) 10/19/24 05:19 Corrected Sodium 142 mmol/L (136-145) 10/19/24 05:19 Potassium 3.4 mmol/L (3.5-5.1) L 10/19/24 05:19 Chloride 104 mmol/L (98-107) 10/19/24 05:19 Carbon Dioxide 33.2 mmol/L (21-32) H 10/19/24 05:19 BUN 19 mg/dL (7-18) H 10/19/24 05:19 Creatinine 0.99 mg/dL (0.55-1.02) 10/19/24 05:19 Est GFR (MDRD) Af Amer > 60 (>60) 10/19/24 05:19 Est GFR (MDRD) Non-Af 57 (>60) L 10/19/24 05:19 Glucose 113 mg/dL (65-99) H 10/19/24 05:19 POC Glucose (mg/dL) 164 mg/dL (65-99) H 10/19/24 15:52 Lactic Acid 1.7 mmol/L (0.4-2.0) 10/18/24 12:58 Calcium 8.5 mg/dL (8.5-10.1) 10/19/24 05:19 Corrected Calcium 9.6 mg/dL (8.5-10.1) 10/19/24 05:19 Magnesium 1.6 mg/dL (2.0-2.9) L 10/19/24 05:19 Total Bilirubin 1.10 mg/dL (0.2-1.0) H 10/19/24 05:19 AST 31 Units/L (15-37) 10/19/24 05:19 ALT 27 Units/L (12-78) 10/19/24 05:19 Alkaline Phosphatase 91 Units/L (46-116) 10/19/24 05:19 B-Natriuretic Peptide 465 pg/mL (0-79) H 10/19/24 05:19 Total Protein 6.4 g/dL (6.4-8.2) 10/19/24 05:19 Albumin 2.6 g/dL (3.4-5.0) L 10/19/24 05:19 Globulin 3.8 g/dL (2.5-4.5) 10/19/24 05:19 Albumin/Globulin Ratio 0.7 Ratio (1.1-2.1) L 10/19/24 05:19 Specimen Type Clean catch urine 10/18/24 14:51 Urine Color Yellow (YELLOW) 10/18/24 14:51 Urine Appearance Clear (CLEAR) 10/18/24 14:51 Urine pH 6.0 (5.0 - 8.0) 10/18/24 14:51 Ur Specific [place] 1.010 (1.000-1.030) 10/18/24 14:51 Urine Protein 2+ (NEGATIVE) 10/18/24 14:51 Urine Glucose (UA) Negative (NEGATIVE) 10/18/24 14:51 Urine Ketones Negative (NEGATIVE) 10/18/24 14:51 Urine Blood 1+ (NEGATIVE) 10/18/24 14:51 Urine Nitrite Negative (NEGATIVE) 10/18/24 14:51 Urine Bilirubin Negative (NEGATIVE) 10/18/24 14:51 Urine Urobilinogen Normal (NORMAL) 10/18/24 14:51 Ur Leukocyte Esterase Negative (NEGATIVE) 10/18/24 14:51 Urine RBC 3-5 /HPF (0-3) A 10/18/24 14:51 Urine WBC 0-2 /HPF (0-5) 10/18/24 14:51 Ur Squamous Epith Cells Rare /HPF (NEGATIVE) 10/18/24 14:51 Amorphous Sediment Trace /HPF (NEGATIVE) 10/18/24 14:51 Urine Bacteria Negative /HPF (NEGATIVE) 10/18/24 14:51 Ur Culture Indicated? No/not indicated 10/18/24 14:51 SARS-CoV-2 (PCR) Negative (NEGATIVE) 10/18/24 10:13 Influenza Type A (PCR) Negative (NEGATIVE) 10/18/24 10:13 Influenza Type B (PCR) Negative (NEGATIVE) 10/18/24 10:13 RSV (PCR) Negative (NEGATIVE) 10/18/24 10:13 Review of Systems Constitutional: Chills and Weakness Eyes: No Symptoms Reported ENT: Nose Discharge, Nose Congestion and Throat Pain Respiratory: Cough, Shortness of Breath, SOB with Excertion and Sputum Cardiovascular: Edema Gastrointestinal: Nausea Genitourinary: Incontinence Musculoskeletal: Back Pain Skin: No Symptoms Reported Neurological: Weakness Physical Exam Vital Signs: Vital Signs Temperature 98.6 F Temperature 98.2 F Pulse Rate [Brachial] 101 Pulse Rate [Brachial] 88 Pulse Rate [Brachial] 91 Pulse Rate [Brachial] 91 Pulse Rate [Brachial] 104 Pulse Rate [Brachial] 102 Pulse Rate [Brachial] 99 Pulse Rate [Brachial] 103 Pulse Rate 104 Respiratory Rate 22 Respiratory Rate 22 Respiratory Rate 24 Respiratory Rate 22 Respiratory Rate 22 Respiratory Rate 24 Respiratory Rate 26 Respiratory Rate 24 Blood Pressure [Right Arm] 115/58 Blood Pressure [Right Arm] 111/58 Blood Pressure [Right Arm] 115/63 Blood Pressure [Right Arm] 100/54 Blood Pressure [Right Arm] 104/64 Blood Pressure [Right Arm] 114/56 Blood Pressure [Right Arm] 112/58 Blood Pressure [Right Arm] 107/63 O2 Sat by Pulse Oximetry 94 O2 Sat by Pulse Oximetry 94 O2 Sat by Pulse Oximetry 99 O2 Sat by Pulse Oximetry 98 O2 Sat by Pulse Oximetry 98 O2 Sat by Pulse Oximetry 99 O2 Sat by Pulse Oximetry 98 O2 Sat by Pulse Oximetry 92 O2 Sat by Pulse Oximetry 92 Oriented: Normal Eyes: Normal Ear: Normal Nose: Discharge Throat: Red and Dry Respiratory: Rhonchi Throughout and LLL Diminished Cardiovascular: Normal Auscultation: Bowel Sounds: Normal Palpation: Normal Tenderness: Normal Skin: Decreased [place] Musculoskeletal: Back:Lumbar and Motor Deficit (SLOW AND CAUTIOUS) Psychiatric: Normal Mood Description: Calm Affect: Anxious Speech Pattern: Clear and Appropriate Assessment/Plan (1) Hypoxemia: Status: Acute Plan: ADMIT, ICU IV ATBX, RESP TEHRAPY SUPPLEMENTAL O2, IV HYDRATION I&OS CARDIAC MONITORING CTA IN ER, ABG IN ER VERIFY HOME MEDICATIONS AND RESUME (2) RLL pneumonia: Qualifiers: Pneumonia type: due to unspecified organism Qualified Code(s): J18.9 - Pneumonia, unspecified organism Status: Acute (3) Hypothyroidism (acquired): Status: Acute (4) Atrial fibrillation: Qualifiers: Atrial fibrillation type: unspecified Qualified Code(s): I48.91 - Unspecified atrial fibrillation Status: Acute (5) CAD (coronary artery disease): Status: Chronic (6) COPD (chronic obstructive pulmonary disease): Status: Chronic
--- NOTE | 2024-10-19 17:35 | PCM.PROG ---
Progress Note Progress Note for Day of Date of Exam: 10/19/24 Subjective Subjective: PT IS 84 BF, ER ADMISSION WITH HYPOXIA AND PNEUMONIA. PT IS CURRENTLY ON HEATED HIGH FLOW WITH RESP THERAPY AND IV ATBX. 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 PT CO CONTINUES CHEST CONGESTION. PT ENCOURAGED TO PRODUCE SPUTUM FOR CULTURE. RYANITUSSIN DM QID ORDERED, INCREASE ORAL HYDRATION. Past Medical Family Social History Allergies: Allergies No Known Drug Allergies Allergy (Verified 10/18/24 10:27) Vital Signs and I&O's Vital Signs: Vital Signs Temperature 98.6 F Temperature 98.2 F Pulse Rate [Brachial] 101 Pulse Rate [Brachial] 88 Pulse Rate [Brachial] 91 Pulse Rate [Brachial] 91 Pulse Rate [Brachial] 104 Pulse Rate [Brachial] 102 Pulse Rate [Brachial] 99 Pulse Rate [Brachial] 103 Pulse Rate 104 Respiratory Rate 22 Respiratory Rate 22 Respiratory Rate 24 Respiratory Rate 22 Respiratory Rate 22 Respiratory Rate 24 Respiratory Rate 26 Respiratory Rate 24 Blood Pressure [Right Arm] 115/58 Blood Pressure [Right Arm] 111/58 Blood Pressure [Right Arm] 115/63 Blood Pressure [Right Arm] 100/54 Blood Pressure [Right Arm] 104/64 Blood Pressure [Right Arm] 114/56 Blood Pressure [Right Arm] 112/58 Blood Pressure [Right Arm] 107/63 O2 Sat by Pulse Oximetry 94 O2 Sat by Pulse Oximetry 94 O2 Sat by Pulse Oximetry 99 O2 Sat by Pulse Oximetry 98 O2 Sat by Pulse Oximetry 98 O2 Sat by Pulse Oximetry 99 O2 Sat by Pulse Oximetry 98 O2 Sat by Pulse Oximetry 92 O2 Sat by Pulse Oximetry 92 Intake and Output: Intake & Output 10/17/24 10/18/24 10/19/24 10/20/24 11:59 11:59 11:59 11:59 Intake Total 148 / 148 2530 / 2530 Output Total 101 / 101 3 / 3 Balance 47 / 47 2527 / 2527 Physical Exam Oriented: Normal Eyes: Normal Ear: Normal Nose: Discharge Throat: Red and Dry Respiratory: Rhonchi Cardiovascular: Normal Auscultation: Bowel Sounds: Normal Tenderness: Normal Skin: Decreased [place]urgur Musculoskeletal: Back:Lumbar and Motor Deficit (SLOW AND CAUTIOUS) Psychiatric: Normal Mood Description: Calm Affect: Anxious Speech Pattern: Clear and Appropriate Laboratory and Diagnostics 10/19/24 05:19 10/19/24 05:19 Labs: Laboratory WBC 12.7 X10^3/uL (3.6-10.0) H 10/19/24 05:19 RBC 3.80 X10^6/uL (3.5-5.4) 10/19/24 05:19 Hgb 11.4 g/dL (12.0-16.0) L D 10/19/24 05:19 Hct 34.1 % (36.0-47.0) L 10/19/24 05:19 MCV 89.7 fL (80.0-100.0) 10/19/24 05:19 MCH 30.0 pg (27.0-34.0) 10/19/24 05:19 MCHC 33.4 g/dL (33.0-35.0) 10/19/24 05:19 RDW 14.3 % (11.6-16.5) 10/19/24 05:19 Plt Count 117 X10^3/uL (150.0-450.0) L 10/19/24 05:19 MPV 8.8 fL (7.4-11.0) 10/19/24 05:19 Neut % (Auto) 88.5 % (42.0-75.0) H 10/19/24 05:19 Lymph % (Auto) 4.1 % (21.0-51.0) L 10/19/24 05:19 [place] % (Auto) 7.4 % (0.0-13.0) 10/19/24 05:19 Eos % (Auto) 0.0 % (0.9-2.9) L 10/19/24 05:19 Baso % (Auto) 0 % (0.2-1.0) L 10/19/24 05:19 Neut # (Auto) 11.3 x10^3/uL (2.2-4.8) H 10/19/24 05:19 Lymph # (Auto) 0.5 X10^3/uL (1.3-2.9) L 10/19/24 05:19 [place] # (Auto) 0.9 x10^3/uL (0.3-0.8) H 10/19/24 05:19 Eos # (Auto) 0.0 x10^3/uL (0.0-0.2) 10/19/24 05:19 Baso # (Auto) 0.0 X10^3/uL (0.0-0.1) 10/19/24 05:19 Absolute Nucleated RBC 0.0 /100WBC 10/19/24 05:19 D-Dimer 3.11 ug/ml (0.0-0.57) H 10/18/24 12:58 Sample Site Rb 10/18/24 10:42 ABG pH 7.470 (7.35-7.45) H 10/18/24 10:42 ABG pCO2 46.0 mmHg (35.0-45.0) H 10/18/24 10:42 ABG pO2 44.0 mmHg (80.0-100.0) L* 10/18/24 10:42 ABG HCO3 33.5 mmol/L (22-26) H* 10/18/24 10:42 ABG O2 Saturation 83.0 % (90-100) L* 10/18/24 10:42 ABG Base Excess 8.7 mmol/L (-2.0-2.0) H 10/18/24 10:42 Javier Test Na 10/18/24 10:42 A-a Gradient 48.0 mmHg 10/18/24 10:42 FiO2 21.0 10/18/24 10:42 Blood Gas Comments Pt gi well. kg 10/18/24 10:42 Sodium 142 mmol/L (136-145) 10/19/24 05:19 Corrected Sodium 142 mmol/L (136-145) 10/19/24 05:19 Potassium 3.4 mmol/L (3.5-5.1) L 10/19/24 05:19 Chloride 104 mmol/L (98-107) 10/19/24 05:19 Carbon Dioxide 33.2 mmol/L (21-32) H 10/19/24 05:19 BUN 19 mg/dL (7-18) H 10/19/24 05:19 Creatinine 0.99 mg/dL (0.55-1.02) 10/19/24 05:19 Est GFR (MDRD) Af Amer > 60 (>60) 10/19/24 05:19 Est GFR (MDRD) Non-Af 57 (>60) L 10/19/24 05:19 Glucose 113 mg/dL (65-99) H 10/19/24 05:19 POC Glucose (mg/dL) 164 mg/dL (65-99) H 10/19/24 15:52 Lactic Acid 1.7 mmol/L (0.4-2.0) 10/18/24 12:58 Calcium 8.5 mg/dL (8.5-10.1) 10/19/24 05:19 Corrected Calcium 9.6 mg/dL (8.5-10.1) 10/19/24 05:19 Magnesium 1.6 mg/dL (2.0-2.9) L 10/19/24 05:19 Total Bilirubin 1.10 mg/dL (0.2-1.0) H 10/19/24 05:19 AST 31 Units/L (15-37) 10/19/24 05:19 ALT 27 Units/L (12-78) 10/19/24 05:19 Alkaline Phosphatase 91 Units/L (46-116) 10/19/24 05:19 B-Natriuretic Peptide 465 pg/mL (0-79) H 10/19/24 05:19 Total Protein 6.4 g/dL (6.4-8.2) 10/19/24 05:19 Albumin 2.6 g/dL (3.4-5.0) L 10/19/24 05:19 Globulin 3.8 g/dL (2.5-4.5) 10/19/24 05:19 Albumin/Globulin Ratio 0.7 Ratio (1.1-2.1) L 10/19/24 05:19 Specimen Type Clean catch urine 10/18/24 14:51 Urine Color Yellow (YELLOW) 10/18/24 14:51 Urine Appearance Clear (CLEAR) 10/18/24 14:51 Urine pH 6.0 (5.0 - 8.0) 10/18/24 14:51 Ur Specific [place] 1.010 (1.000-1.030) 10/18/24 14:51 Urine Protein 2+ (NEGATIVE) 10/18/24 14:51 Urine Glucose (UA) Negative (NEGATIVE) 10/18/24 14:51 Urine Ketones Negative (NEGATIVE) 10/18/24 14:51 Urine Blood 1+ (NEGATIVE) 10/18/24 14:51 Urine Nitrite Negative (NEGATIVE) 10/18/24 14:51 Urine Bilirubin Negative (NEGATIVE) 10/18/24 14:51 Urine Urobilinogen Normal (NORMAL) 10/18/24 14:51 Ur Leukocyte Esterase Negative (NEGATIVE) 10/18/24 14:51 Urine RBC 3-5 /HPF (0-3) A 10/18/24 14:51 Urine WBC 0-2 /HPF (0-5) 10/18/24 14:51 Ur Squamous Epith Cells Rare /HPF (NEGATIVE) 10/18/24 14:51 Amorphous Sediment Trace /HPF (NEGATIVE) 10/18/24 14:51 Urine Bacteria Negative /HPF (NEGATIVE) 10/18/24 14:51 Ur Culture Indicated? No/not indicated 10/18/24 14:51 SARS-CoV-2 (PCR) Negative (NEGATIVE) 10/18/24 10:13 Influenza Type A (PCR) Negative (NEGATIVE) 10/18/24 10:13 Influenza Type B (PCR) Negative (NEGATIVE) 10/18/24 10:13 RSV (PCR) Negative (NEGATIVE) 10/18/24 10:13 Plan (1) Hypoxemia: Status: Acute Plan: ICU IV ATBX, RESP TEHRAPY SUPPLEMENTAL O2, IV HYDRATION I&OS CARDIAC MONITORING CTA IN ER, ABG IN ER VERIFY HOME MEDICATIONS AND RESUME (2) RLL pneumonia: Status: Acute Qualifiers: Pneumonia type: due to unspecified organism Qualified Code(s): J18.9 - Pneumonia, unspecified organism (3) Hypothyroidism (acquired): Status: Acute (4) Atrial fibrillation: Status: Acute Qualifiers: Atrial fibrillation type: unspecified Qualified Code(s): I48.91 - Unspecified atrial fibrillation (5) CAD (coronary artery disease): Status: Chronic (6) COPD (chronic obstructive pulmonary disease): Status: Chronic
[2024-10-19] MEDS: PULMICORT NEB TX 0.5 MG NEB SCH (20:20)
[2024-10-20] MEDS: TUSSIONEX PENNKINETIC SUSP PO PRN (01:24)
--- NOTE | 2024-10-20 05:31 | RAD ---
EXAM: CHEST, 1 VIEW HISTORY: CHF, PNEUMONIA ; ASTHMA, CAD, CVA, HTN, RENAL DISEASE, AFIB SX: APPY, WATCHMAN DEVICE COMPARISON: None. TECHNIQUE: FINDINGS: Severe cardiac enlargement and left ventricular hypertrophy. Calcified thoracic aorta. Lungs demons trate moderate diffuse pulmonary edema and increased vascular congestion throughout with superimposed perihilar and bibasilar airspace opacities. Possibility for superimposed infection and pneumonia no t excluded. Small to moderate left pleural effusion. IMPRESSION: Findings as above THIS IS AN ELECTRONICALLY VERIFIED FINAL REPORT 10/20/2024 5:28 AM - Electronically signed by Panda Nguyễn MD
[2024-10-20 05:33] LABS: BASOPHILS % (AUTO) 0.2 % (0.2-1.0); HEMATOCRIT 32.4 % (36.0-47.0); HEMOGLOBIN 10.9 g/dL (12.0-16.0); LYMPHOCYTES # (AUTO) 0.5 X10^3/uL (1.3-2.9); MEAN CORPUSCULAR HEMOGLOBIN 29.6 pg (27.0-34.0); MEAN CORPUSCULAR HGB CONC 33.5 g/dL (33.0-35.0); MEAN CORPUSCULAR VOLUME 88.3 fL (80.0-100.0); MEAN PLATELET VOLUME 9.3 fL (7.4-11.0); MONOCYTES # (AUTO) 1.1 x10^3/uL (0.3-0.8); MONOCYTES % (AUTO) 9.9 % (0.0-13.0); NEUTROPHILS # (AUTO) 9.7 x10^3/uL (2.2-4.8); NEUTROPHILS % (AUTO) 85.9 % (42.0-75.0); PLATELET COUNT 110 X10^3/uL (150.0-450.0); RED BLOOD COUNT 3.66 X10^6/uL (3.5-5.4); RED CELL DISTRIBUTION WIDTH 14.4 % (11.6-16.5); WHITE BLOOD COUNT 11.3 X10^3/uL (3.6-10.0)
[2024-10-20 05:47] LABS: ALANINE AMINOTRANSFERASE 23 Units/L (12-78); ALBUMIN 2.4 g/dL (3.4-5.0); ALKALINE PHOSPHATASE 105 Units/L (46-116); ASPARTATE AMINO TRANSFERASE 23 Units/L (15-37); BLOOD UREA NITROGEN 15 mg/dL (7-18); CALCIUM 8.4 mg/dL (8.5-10.1); CARBON DIOXIDE 37.1 mmol/L (21-32); CHLORIDE 102 mmol/L (98-107); COR CA(FOR HYPOALB) 9.7 mg/dL (8.5-10.1); COR NA(FOR HYPERGLY) 140 mmol/L (136-145); CREATININE 0.98 mg/dL (0.55-1.02); GLUCOSE 115 mg/dL (65-99); MAGNESIUM 1.6 mg/dL (2.0-2.9); POTASSIUM 3.4 mmol/L (3.5-5.1); SODIUM 140 mmol/L (136-145); TOTAL PROTEIN 6.3 g/dL (6.4-8.2); eGFR NON BLACK RACES 58 (>60)
[2024-10-20] MEDS ORDERED: CONSULT PHARMACY - POTASSIUM & MAGNESIUM XX SCH (06:00)
[2024-10-20] MEDS: MAG-OX TAB PO SCH (09:51)
[2024-10-20] MEDS: K-DUR TAB 20 MEQ PO SCH ×2 (09:53→10:03)
[2024-10-20] MEDS: LASIX IVP SCH (10:02)
[2024-10-20] MEDS: TOPROL XL PO SCH (21:10)
[2024-10-20] MEDS: NEURONTIN CAP 100 MG PO PRN (21:25)
[2024-10-21] MEDS ORDERED: NS 1/2 1,000 ML IV 1,000 ML IV ONE (00:22)
[2024-10-21 05:41] LABS: BASOPHILS % (AUTO) 0.2 % (0.2-1.0); EOSINOPHILS % (AUTO) 0.1 % (0.9-2.9); HEMATOCRIT 34.8 % (36.0-47.0); HEMOGLOBIN 11.7 g/dL (12.0-16.0); LYMPHOCYTES # (AUTO) 0.5 X10^3/uL (1.3-2.9); LYMPHOCYTES % (AUTO) 4.9 % (21.0-51.0); MEAN CORPUSCULAR HEMOGLOBIN 30.1 pg (27.0-34.0); MEAN CORPUSCULAR HGB CONC 33.5 g/dL (33.0-35.0); MEAN CORPUSCULAR VOLUME 89.8 fL (80.0-100.0); MEAN PLATELET VOLUME 9.1 fL (7.4-11.0); MONOCYTES % (AUTO) 9.7 % (0.0-13.0); NEUTROPHILS # (AUTO) 8.9 x10^3/uL (2.2-4.8); NEUTROPHILS % (AUTO) 85.1 % (42.0-75.0); PLATELET COUNT 121 X10^3/uL (150.0-450.0); RED BLOOD COUNT 3.88 X10^6/uL (3.5-5.4); RED CELL DISTRIBUTION WIDTH 13.9 % (11.6-16.5); WHITE BLOOD COUNT 10.5 X10^3/uL (3.6-10.0)
[2024-10-21 05:59] LABS: ALANINE AMINOTRANSFERASE 24 Units/L (12-78); ALBUMIN 2.5 g/dL (3.4-5.0); ALKALINE PHOSPHATASE 100 Units/L (46-116); ASPARTATE AMINO TRANSFERASE 24 Units/L (15-37); BLOOD UREA NITROGEN 16 mg/dL (7-18); CALCIUM 8.9 mg/dL (8.5-10.1); CARBON DIOXIDE 40.2 mmol/L (21-32); CHLORIDE 96 mmol/L (98-107); COR CA(FOR HYPOALB) 10.1 mg/dL (8.5-10.1); CREATININE 0.97 mg/dL (0.55-1.02); GLUCOSE 109 mg/dL (65-99); MAGNESIUM 1.9 mg/dL (2.0-2.9); POTASSIUM 3.7 mmol/L (3.5-5.1); SODIUM 138 mmol/L (136-145); TOTAL PROTEIN 6.9 g/dL (6.4-8.2); eGFR NON BLACK RACES 58 (>60)
[2024-10-21] MEDS ORDERED: CONSULT PHARMACY - POTASSIUM & MAGNESIUM XX SCH (07:00)
[2024-10-21] MEDS: K-DUR TAB 20 MEQ PO ONE (10:13)
[2024-10-21] MEDS: MAG-OX TAB PO SCH (10:13)
--- NOTE | 2024-10-21 11:46 | RAD ---
EXAM:CHEST, 1 VIEWHISTORY:chf, pneumonia; ASTHMA, CAD, CVA, HTN, RENAL DISEASE, AFIB SX: APPY, WATCHMAN DEVICE COMPARISON:10/20/2024FINDINGS:The cardiomediastinal silhouette is stable.Similar scattered bilateral opacities. Possible small left-sided effusion. No pneumothorax.No acute osseous abnormality.IMPRESSION:Similar chest without acute change.THIS IS AN ELECTRONICALLY VERIFIED FINAL REPORT10/21/2024 11:41 AM - Electronically signed by Ryan Swenson MD
[2024-10-21] MEDS ORDERED: SOLU-Medrol 40 MG VIAL ONE (13:32)
[2024-10-21] MEDS: SOLU-Medrol 40 MG VIAL IVP ONE (13:43)
[2024-10-22 05:23] LABS: BASOPHILS % (AUTO) 0.3 % (0.2-1.0); HEMATOCRIT 36.8 % (36.0-47.0); HEMOGLOBIN 12.1 g/dL (12.0-16.0); LYMPHOCYTES # (AUTO) 0.4 X10^3/uL (1.3-2.9); LYMPHOCYTES % (AUTO) 5.7 % (21.0-51.0); MEAN CORPUSCULAR HEMOGLOBIN 29.3 pg (27.0-34.0); MEAN CORPUSCULAR VOLUME 88.9 fL (80.0-100.0); MONOCYTES # (AUTO) 0.4 x10^3/uL (0.3-0.8); MONOCYTES % (AUTO) 5.6 % (0.0-13.0); NEUTROPHILS % (AUTO) 88.4 % (42.0-75.0); PLATELET COUNT 136 X10^3/uL (150.0-450.0); RED BLOOD COUNT 4.13 X10^6/uL (3.5-5.4); RED CELL DISTRIBUTION WIDTH 13.8 % (11.6-16.5); WHITE BLOOD COUNT 7.9 X10^3/uL (3.6-10.0)
[2024-10-22 05:34] LABS: ALBUMIN 2.4 g/dL (3.4-5.0); CALCIUM 9.1 mg/dL (8.5-10.1); CARBON DIOXIDE 37.5 mmol/L (21-32); COR CA(FOR HYPOALB) 10.4 mg/dL (8.5-10.1); CREATININE 1.29 mg/dL (0.55-1.02); MAGNESIUM 2.1 mg/dL (2.0-2.9); POTASSIUM 4.8 mmol/L (3.5-5.1)
[2024-10-22] MEDS: LASIX IVP SCH (08:56)
[2024-10-22] MEDS: K-DUR TAB 20 MEQ PO SCH (08:56)
[2024-10-22] MEDS: SOLU-Medrol 40 MG VIAL IVP SCH (11:54)
[2024-10-22] MEDS: COLACE CAP 100 MG PO PRN (11:57)
[2024-10-22] MEDS: MILK OF MAGNESIA PO PRN (11:57)
[2024-10-23 05:40] LABS: BASOPHILS % (AUTO) 0.1 % (0.2-1.0); HEMATOCRIT 36.6 % (36.0-47.0); HEMOGLOBIN 12.1 g/dL (12.0-16.0); LYMPHOCYTES # (AUTO) 0.6 X10^3/uL (1.3-2.9); LYMPHOCYTES % (AUTO) 4.8 % (21.0-51.0); MEAN CORPUSCULAR HEMOGLOBIN 29.2 pg (27.0-34.0); MEAN CORPUSCULAR VOLUME 88.6 fL (80.0-100.0); MEAN PLATELET VOLUME 9.5 fL (7.4-11.0); MONOCYTES # (AUTO) 1.4 x10^3/uL (0.3-0.8); MONOCYTES % (AUTO) 10.6 % (0.0-13.0); NEUTROPHILS # (AUTO) 11.3 x10^3/uL (2.2-4.8); NEUTROPHILS % (AUTO) 84.5 % (42.0-75.0); PLATELET COUNT 164 X10^3/uL (150.0-450.0); RED BLOOD COUNT 4.13 X10^6/uL (3.5-5.4); WHITE BLOOD COUNT 13.4 X10^3/uL (3.6-10.0)
[2024-10-23 05:47] LABS: ALBUMIN 2.6 g/dL (3.4-5.0); CALCIUM 9.3 mg/dL (8.5-10.1); CARBON DIOXIDE 37.7 mmol/L (21-32); COR CA(FOR HYPOALB) 10.4 mg/dL (8.5-10.1); CREATININE 1.15 mg/dL (0.55-1.02); POTASSIUM 4.9 mmol/L (3.5-5.1); TOTAL PROTEIN 7.2 g/dL (6.4-8.2)
[2024-10-23 05:59] LABS: BAND NEUTROPHILS % 2 % (0-10); METAMYELOCYTES % 2; MYELOCYTES % 3; PLATELET MORPHOLOGY COMMENT NORMAL (NORMAL)
--- NOTE | 2024-10-23 08:13 | RAD ---
EXAM:AP chestHISTORY:Pneumonia CHFCOMPARISON:10/21/2024, 10/20/2024FINDINGS:Similar cardiac enlargement and pulmonary venous congestion. Retrocardiac opacity obscures the descending aorta, left diaphragm and costophrenic angle. The left upper lobe remains relatively clear.IMPRESSION:Similar cardiac enlargement and venous congestion/CHF. Left basal opacity concerning for lower lobe pneumonia/atelectasis and probable pleural effusion.THIS IS AN ELECTRONICALLY VERIFIED FINAL REPORT10/23/2024 8:09 AM - Electronically signed by Carmelo Kirk MD
[2024-10-23] MEDS: NS 1/2 1,000 ML IV 1,000 ML IV ONE (09:23)
--- NOTE | 2024-10-23 11:12 | PCM.PROG ---
Progress Note Progress Note for Day of Date of Exam: 10/23/24 Subjective Subjective: Patient is a 84-year-old female that is admitted for pneumonia, hypoxia, CHF exacerbation. This morning she is resting comfortably in bed. No acute events overnight. She is on supplemental oxygen via nasal cannula. Labs/imaging: WBC 13.4, hemoglobin 12.1, platelets 164, sodium 137, potassium 4.9, creatinine 1.15, glucose 122, chest x-ray yesterday did show CHF as well as a left base atelectasis/pneumonia and pleural effusion. Blood cultures no growth to date. She is currently on IV Rocephin for the pneumonia. And IV Lasix for CHF exacerbation. Will continue with current treatment plan of IV antibiotics, respiratory therapy, supplemental oxygen, and pulmonary toileting along with corticosteroids. Strict I's and O's. Home medications have been restarted. Otherwise continue with current treatment plan. Continue closely monitor and follow-up labs/imaging Time spent for clinical assessment, reviewing labs/imaging, physical exam, decision making and documentation greater than 45 mins. Past Medical Family Social History Allergies: Allergies No Known Drug Allergies Allergy (Verified 10/18/24 10:27) Review of Systems ROS changes noted: see HPI Vital Signs and I&O's Vital Signs: Vital Signs Temperature 97.5 F Temperature 98.1 F Pulse Rate 100 Pulse Rate 98 Pulse Rate 105 Pulse Rate 118 Pulse Rate 100 Pulse Rate 80 Pulse Rate 97 Pulse Rate 92 Pulse Rate 93 Respiratory Rate 26 Respiratory Rate 29 Respiratory Rate 30 Respiratory Rate 29 Respiratory Rate 32 Respiratory Rate 31 Respiratory Rate 26 Blood Pressure 141/68 Blood Pressure 130/74 Blood Pressure 148/81 Blood Pressure 166/92 Blood Pressure 170/88 Blood Pressure 154/89 Blood Pressure 179/90 Blood Pressure 189/116 O2 Sat by Pulse Oximetry 97 O2 Sat by Pulse Oximetry 97 O2 Sat by Pulse Oximetry 90 O2 Sat by Pulse Oximetry 92 O2 Sat by Pulse Oximetry 95 O2 Sat by Pulse Oximetry 99 O2 Sat by Pulse Oximetry 99 O2 Sat by Pulse Oximetry 96 O2 Sat by Pulse Oximetry 99 Intake and Output: Intake & Output 10/20/24 10/21/24 10/22/24 10/23/24 23:59 23:59 23:59 23:59 Intake Total 2303 / 2303 1045 / 1045 925 / 925 320 / 320 Output Total 2650 / 2650 1160 / 1160 1300 / 1300 250 / 250 Balance -347 / -347 -115 / -115 -375 / -375 70 / 70 Physical Exam Oriented: Normal Eyes: Normal Ear: Normal Nose: Normal Respiratory: Rhonchi Cardiovascular: Normal Auscultation: Bowel Sounds: Normal Tenderness: Normal Skin: Decreased Turgur Musculoskeletal: Back:Lumbar and Motor Deficit (SLOW AND CAUTIOUS) Psychiatric: Normal Mood Description: Calm Affect: Anxious Speech Pattern: Clear and Appropriate Laboratory and Diagnostics 10/23/24 04:34 10/23/24 04:34 Labs: 10/18/24 11:24 Blood Blood Culture - Preliminary 10/18/24 10:56 Blood Blood Culture - Preliminary Laboratory WBC 13.4 X10^3/uL (3.6-10.0) H 10/23/24 04:34 RBC 4.13 X10^6/uL (3.5-5.4) 10/23/24 04:34 Hgb 12.1 g/dL (12.0-16.0) 10/23/24 04:34 Hct 36.6 % (36.0-47.0) 10/23/24 04:34 MCV 88.6 fL (80.0-100.0) 10/23/24 04:34 MCH 29.2 pg (27.0-34.0) 10/23/24 04:34 MCHC 33.0 g/dL (33.0-35.0) 10/23/24 04:34 RDW 14.0 % (11.6-16.5) 10/23/24 04:34 Plt Count 164 X10^3/uL (150.0-450.0) 10/23/24 04:34 Plt Count Comment Adequate (ADEQUATE) 10/23/24 04:34 MPV 9.5 fL (7.4-11.0) 10/23/24 04:34 Neut % (Auto) 84.5 % (42.0-75.0) H 10/23/24 04:34 Lymph % (Auto) 4.8 % (21.0-51.0) L 10/23/24 04:34 [place] % (Auto) 10.6 % (0.0-13.0) 10/23/24 04:34 Eos % (Auto) 0.0 % (0.9-2.9) L 10/23/24 04:34 Baso % (Auto) 0.1 % (0.2-1.0) L 10/23/24 04:34 Neut # (Auto) 11.3 x10^3/uL (2.2-4.8) H 10/23/24 04:34 Lymph # (Auto) 0.6 X10^3/uL (1.3-2.9) L 10/23/24 04:34 [place] # (Auto) 1.4 x10^3/uL (0.3-0.8) H 10/23/24 04:34 Eos # (Auto) 0.0 x10^3/uL (0.0-0.2) 10/23/24 04:34 Baso # (Auto) 0.0 X10^3/uL (0.0-0.1) 10/23/24 04:34 Absolute Nucleated RBC 0.1 /100WBC 10/23/24 04:34 Total Counted 100 10/23/24 04:34 Neutrophils % (Manual) 75 % (39-76) 10/23/24 04:34 Band Neutrophils % 2 % (0-10) 10/23/24 04:34 Lymphocytes % (Manual) 9 % (13-43) L 10/23/24 04:34 Monocytes % (Manual) 9 % (4-9) 10/23/24 04:34 Metamyelocytes % 2 10/23/24 04:34 Myelocytes % 3 10/23/24 04:34 Plt Morphology Comment Normal (NORMAL) 10/23/24 04:34 RBC Morphology Normal (NORMAL) 10/23/24 04:34 D-Dimer 3.11 ug/ml (0.0-0.57) H 10/18/24 12:58 Sample Site Rb 10/18/24 10:42 ABG pH 7.470 (7.35-7.45) H 10/18/24 10:42 ABG pCO2 46.0 mmHg (35.0-45.0) H 10/18/24 10:42 ABG pO2 44.0 mmHg (80.0-100.0) L* 10/18/24 10:42 ABG HCO3 33.5 mmol/L (22-26) H* 10/18/24 10:42 ABG O2 Saturation 83.0 % (90-100) L* 10/18/24 10:42 ABG Base Excess 8.7 mmol/L (-2.0-2.0) H 10/18/24 10:42 Javier Test Na 10/18/24 10:42 A-a Gradient 48.0 mmHg 10/18/24 10:42 FiO2 21.0 10/18/24 10:42 Blood Gas Comments Pt gi well. kg 10/18/24 10:42 Sodium 137 mmol/L (136-145) 10/23/24 04:34 Corrected Sodium 138 mmol/L (136-145) 10/23/24 04:34 Potassium 4.9 mmol/L (3.5-5.1) 10/23/24 04:34 Chloride 98 mmol/L (98-107) 10/23/24 04:34 Carbon Dioxide 37.7 mmol/L (21-32) H 10/23/24 04:34 BUN 38 mg/dL (7-18) H 10/23/24 04:34 Creatinine 1.15 mg/dL (0.55-1.02) H 10/23/24 04:34 Est GFR (MDRD) Af Amer 58 (>60) L 10/23/24 04:34 Est GFR (MDRD) Non-Af 48 (>60) L 10/23/24 04:34 Glucose 122 mg/dL (65-99) H 10/23/24 04:34 POC Glucose (mg/dL) 164 mg/dL (65-99) H 10/19/24 15:52 Lactic Acid 1.7 mmol/L (0.4-2.0) 10/18/24 12:58 Calcium 9.3 mg/dL (8.5-10.1) 10/23/24 04:34 Corrected Calcium 10.4 mg/dL (8.5-10.1) H 10/23/24 04:34 Magnesium 2.1 mg/dL (2.0-2.9) 10/22/24 05:00 Total Bilirubin 0.60 mg/dL (0.2-1.0) 10/23/24 04:34 AST 32 Units/L (15-37) 10/23/24 04:34 ALT 34 Units/L (12-78) 10/23/24 04:34 Alkaline Phosphatase 104 Units/L (46-116) 10/23/24 04:34 B-Natriuretic Peptide 156 pg/mL (0-79) H 10/20/24 04:57 Total Protein 7.2 g/dL (6.4-8.2) 10/23/24 04:34 Albumin 2.6 g/dL (3.4-5.0) L 10/23/24 04:34 Globulin 4.6 g/dL (2.5-4.5) H 10/23/24 04:34 Albumin/Globulin Ratio 0.6 Ratio (1.1-2.1) L 10/23/24 04:34 Specimen Type Clean catch urine 10/18/24 14:51 Urine Color Yellow (YELLOW) 10/18/24 14:51 Urine Appearance Clear (CLEAR) 10/18/24 14:51 Urine pH 6.0 (5.0 - 8.0) 10/18/24 14:51 Ur Specific [place] 1.010 (1.000-1.030) 10/18/24 14:51 Urine Protein 2+ (NEGATIVE) 10/18/24 14:51 Urine Glucose (UA) Negative (NEGATIVE) 10/18/24 14:51 Urine Ketones Negative (NEGATIVE) 10/18/24 14:51 Urine Blood 1+ (NEGATIVE) 10/18/24 14:51 Urine Nitrite Negative (NEGATIVE) 10/18/24 14:51 Urine Bilirubin Negative (NEGATIVE) 10/18/24 14:51 Urine Urobilinogen Normal (NORMAL) 10/18/24 14:51 Ur Leukocyte Esterase Negative (NEGATIVE) 10/18/24 14:51 Urine RBC 3-5 /HPF (0-3) A 10/18/24 14:51 Urine WBC 0-2 /HPF (0-5) 10/18/24 14:51 Ur Squamous Epith Cells Rare /HPF (NEGATIVE) 10/18/24 14:51 Amorphous Sediment Trace /HPF (NEGATIVE) 10/18/24 14:51 Urine Bacteria Negative /HPF (NEGATIVE) 10/18/24 14:51 Ur Culture Indicated? No/not indicated 10/18/24 14:51 SARS-CoV-2 (PCR) Negative (NEGATIVE) 10/18/24 10:13 Influenza Type A (PCR) Negative (NEGATIVE) 10/18/24 10:13 Influenza Type B (PCR) Negative (NEGATIVE) 10/18/24 10:13 RSV (PCR) Negative (NEGATIVE) 10/18/24 10:13 Resp Viral Panel (PCR) See scanned report 10/18/24 15:30 Plan (1) Hypoxemia: Status: Acute Plan: ICU IV ATBX, RESP TEHRAPY SUPPLEMENTAL O2, IV HYDRATION I&OS CARDIAC MONITORING CTA IN ER, ABG IN ER VERIFY HOME MEDICATIONS AND RESUME (2) RLL pneumonia: Status: Acute Qualifiers: Pneumonia type: due to unspecified organism Qualified Code(s): J18.9 - Pneumonia, unspecified organism (3) Hypothyroidism (acquired): Status: Acute (4) Atrial fibrillation: Status: Acute Qualifiers: Atrial fibrillation type: unspecified Qualified Code(s): I48.91 - Unspecified atrial fibrillation (5) CAD (coronary artery disease): Status: Chronic (6) COPD (chronic obstructive pulmonary disease): Status: Chronic
[2024-10-24 05:23] LABS: MEAN CORPUSCULAR HEMOGLOBIN 29.1 pg (27.0-34.0)
[2024-10-24 05:30] LABS: BASOPHILS % (AUTO) 0 % (0.2-1.0); HEMATOCRIT 37.1 % (36.0-47.0); HEMOGLOBIN 12.1 g/dL (12.0-16.0); LYMPHOCYTES # (AUTO) 0.7 X10^3/uL (1.3-2.9); LYMPHOCYTES % (AUTO) 5.8 % (21.0-51.0); MEAN CORPUSCULAR HGB CONC 32.7 g/dL (33.0-35.0); MEAN CORPUSCULAR VOLUME 89.2 fL (80.0-100.0); MEAN PLATELET VOLUME 9.2 fL (7.4-11.0); MONOCYTES # (AUTO) 1.8 x10^3/uL (0.3-0.8); MONOCYTES % (AUTO) 14.8 % (0.0-13.0); NEUTROPHILS # (AUTO) 9.7 x10^3/uL (2.2-4.8); NEUTROPHILS % (AUTO) 79.4 % (42.0-75.0); PLATELET COUNT 165 X10^3/uL (150.0-450.0); RED BLOOD COUNT 4.17 X10^6/uL (3.5-5.4); RED CELL DISTRIBUTION WIDTH 14.1 % (11.6-16.5); WHITE BLOOD COUNT 12.3 X10^3/uL (3.6-10.0)
[2024-10-24 05:31] LABS: ALANINE AMINOTRANSFERASE 32 Units/L (12-78); ALBUMIN 2.4 g/dL (3.4-5.0); ALKALINE PHOSPHATASE 94 Units/L (46-116); ASPARTATE AMINO TRANSFERASE 24 Units/L (15-37); BLOOD UREA NITROGEN 38 mg/dL (7-18); CALCIUM 8.9 mg/dL (8.5-10.1); CARBON DIOXIDE 38.1 mmol/L (21-32); CHLORIDE 98 mmol/L (98-107); COR CA(FOR HYPOALB) 10.2 mg/dL (8.5-10.1); GLUCOSE 108 mg/dL (65-99); POTASSIUM 4.9 mmol/L (3.5-5.1); SODIUM 135 mmol/L (136-145); TOTAL PROTEIN 6.6 g/dL (6.4-8.2); eGFR NON BLACK RACES 46 (>60)
[2024-10-24 05:50] LABS: BAND NEUTROPHILS % 2 % (0-10); OVALOCYTES PRESENT; PLATELET MORPHOLOGY COMMENT NORMAL (NORMAL)
[2024-10-24] MEDS ORDERED: NS 1/2 1,000 ML IV 1,000 ML IV ONE (08:26)
--- NOTE | 2024-10-24 11:03 | PCM.PROG ---
Progress Note Progress Note for Day of Date of Exam: 10/24/24 Subjective Subjective: Patient is a 84-year-old female that is admitted for pneumonia, hypoxia, CHF exacerbation. This morning she is resting in recliner. No acute events overnight. She is on supplemental oxygen via nasal cannula. She does report improvement in her symptoms and breathing. Labs/imaging: WBC 12.3, hemoglobin 12.1, platelets 165, sodium 135, potassium 4.9, creatinine 1.20, glucose 108, chest x-ray yesterday did show CHF as well as a left base atelectasis/pneumonia and pleural effusion. Blood cultures no growth to date. She is currently on IV Rocephin for the pneumonia and IV Lasix for CHF exacerbation. Will continue with current treatment plan of IV antibiotics, respiratory therapy, supplemental oxygen, and pulmonary toileting along with corticosteroids. Strict I's and O's. Home medications have been restarted. Otherwise continue with current treatment plan. Continue closely monitor and follow-up labs/imaging Time spent for clinical assessment, reviewing labs/imaging, physical exam, decision making and documentation greater than 45 mins. Past Medical Family Social History Allergies: Allergies No Known Drug Allergies Allergy (Verified 10/18/24 10:27) Review of Systems ROS changes noted: see HPI Vital Signs and I&O's Vital Signs: Vital Signs Temperature 98.3 F Temperature 98.0 F Pulse Rate 103 Pulse Rate 101 Pulse Rate 103 Pulse Rate 115 Pulse Rate 115 Pulse Rate 94 Pulse Rate 95 Pulse Rate 91 Pulse Rate 87 Pulse Rate 89 Pulse Rate 97 Respiratory Rate 26 Respiratory Rate 26 Respiratory Rate 26 Respiratory Rate 28 Respiratory Rate 26 Respiratory Rate 29 Respiratory Rate 26 Respiratory Rate 24 Respiratory Rate 25 Respiratory Rate 26 Blood Pressure 131/84 Blood Pressure 136/84 Blood Pressure 133/94 Blood Pressure 141/96 Blood Pressure 165/77 Blood Pressure 176/76 Blood Pressure 185/89 Blood Pressure 155/103 Blood Pressure 173/83 O2 Sat by Pulse Oximetry 97 O2 Sat by Pulse Oximetry 100 O2 Sat by Pulse Oximetry 100 O2 Sat by Pulse Oximetry 98 O2 Sat by Pulse Oximetry 95 O2 Sat by Pulse Oximetry 99 O2 Sat by Pulse Oximetry 97 O2 Sat by Pulse Oximetry 98 O2 Sat by Pulse Oximetry 97 O2 Sat by Pulse Oximetry 100 O2 Sat by Pulse Oximetry 100 Intake and Output: Intake & Output 02/27/25 02/28/25 03/01/25 03/02/25 23:59 23:59 23:59 23:59 Intake Total 1045 / 1045 925 / 925 1354 / 1354 220 / 220 Output Total 1160 / 1160 1300 / 1300 1200 / 1200 Balance -115 / -115 -375 / -375 154 / 154 220 / 220 Physical Exam Oriented: Normal Eyes: Normal Ear: Normal Nose: Normal Throat: Red and Dry Respiratory: Rhonchi Cardiovascular: Normal Auscultation: Bowel Sounds: Normal Tenderness: Normal Skin: Decreased Turgur Musculoskeletal: Back:Lumbar and Motor Deficit (SLOW AND CAUTIOUS) Psychiatric: Normal Mood Description: Calm Affect: Anxious Speech Pattern: Clear and Appropriate Laboratory and Diagnostics 10/24/24 04:30 10/24/24 04:30 Labs: 10/18/24 11:24 Blood Blood Culture - Final 10/18/24 10:56 Blood Blood Culture - Final Laboratory WBC 12.3 X10^3/uL (3.6-10.0) H 10/24/24 04:30 RBC 4.17 X10^6/uL (3.5-5.4) 10/24/24 04:30 Hgb 12.1 g/dL (12.0-16.0) 10/24/24 04:30 Hct 37.1 % (36.0-47.0) 10/24/24 04:30 MCV 89.2 fL (80.0-100.0) 10/24/24 04:30 MCH 29.1 pg (27.0-34.0) 10/24/24 04:30 MCHC 32.7 g/dL (33.0-35.0) L 10/24/24 04:30 RDW 14.1 % (11.6-16.5) 10/24/24 04:30 Plt Count 165 X10^3/uL (150.0-450.0) 10/24/24 04:30 Plt Count Comment Adequate (ADEQUATE) 10/24/24 04:30 MPV 9.2 fL (7.4-11.0) 10/24/24 04:30 Neut % (Auto) 79.4 % (42.0-75.0) H 10/24/24 04:30 Lymph % (Auto) 5.8 % (21.0-51.0) L 10/24/24 04:30 [place] % (Auto) 14.8 % (0.0-13.0) H 10/24/24 04:30 Eos % (Auto) 0.0 % (0.9-2.9) L 10/24/24 04:30 Baso % (Auto) 0 % (0.2-1.0) L 10/24/24 04:30 Neut # (Auto) 9.7 x10^3/uL (2.2-4.8) H 10/24/24 04:30 Lymph # (Auto) 0.7 X10^3/uL (1.3-2.9) L 10/24/24 04:30 [place] # (Auto) 1.8 x10^3/uL (0.3-0.8) H 10/24/24 04:30 Eos # (Auto) 0.0 x10^3/uL (0.0-0.2) 10/24/24 04:30 Baso # (Auto) 0.0 X10^3/uL (0.0-0.1) 10/24/24 04:30 Absolute Nucleated RBC 0.0 /100WBC 10/24/24 04:30 Total Counted 100 10/24/24 04:30 Neutrophils % (Manual) 79 % (39-76) H 10/24/24 04:30 Band Neutrophils % 2 % (0-10) 10/24/24 04:30 Lymphocytes % (Manual) 6 % (13-43) L 10/24/24 04:30 Monocytes % (Manual) 13 % (4-9) H 10/24/24 04:30 Metamyelocytes % 2 10/23/24 04:34 Myelocytes % 3 10/23/24 04:34 Plt Morphology Comment Normal (NORMAL) 10/24/24 04:30 RBC Morphology Abnormal (NORMAL) A 10/24/24 04:30 Ovalocytes Present 10/24/24 04:30 D-Dimer 3.11 ug/ml (0.0-0.57) H 10/18/24 12:58 Sample Site Rb 10/18/24 10:42 ABG pH 7.470 (7.35-7.45) H 10/18/24 10:42 ABG pCO2 46.0 mmHg (35.0-45.0) H 10/18/24 10:42 ABG pO2 44.0 mmHg (80.0-100.0) L* 10/18/24 10:42 ABG HCO3 33.5 mmol/L (22-26) H* 10/18/24 10:42 ABG O2 Saturation 83.0 % (90-100) L* 10/18/24 10:42 ABG Base Excess 8.7 mmol/L (-2.0-2.0) H 10/18/24 10:42 Javier Test Na 10/18/24 10:42 A-a Gradient 48.0 mmHg 10/18/24 10:42 FiO2 21.0 10/18/24 10:42 Blood Gas Comments Pt gi well. kg 10/18/24 10:42 Sodium 135 mmol/L (136-145) L 10/24/24 04:30 Corrected Sodium TNP 10/24/24 04:30 Potassium 4.9 mmol/L (3.5-5.1) 10/24/24 04:30 Chloride 98 mmol/L (98-107) 10/24/24 04:30 Carbon Dioxide 38.1 mmol/L (21-32) H 10/24/24 04:30 BUN 38 mg/dL (7-18) H 10/24/24 04:30 Creatinine 1.20 mg/dL (0.55-1.02) H 10/24/24 04:30 Est GFR (MDRD) Af Amer 55 (>60) L 10/24/24 04:30 Est GFR (MDRD) Non-Af 46 (>60) L 10/24/24 04:30 Glucose 108 mg/dL (65-99) H 10/24/24 04:30 POC Glucose (mg/dL) 164 mg/dL (65-99) H 10/19/24 15:52 Lactic Acid 1.7 mmol/L (0.4-2.0) 10/18/24 12:58 Calcium 8.9 mg/dL (8.5-10.1) 10/24/24 04:30 Corrected Calcium 10.2 mg/dL (8.5-10.1) H 10/24/24 04:30 Magnesium 2.1 mg/dL (2.0-2.9) 10/22/24 05:00 Total Bilirubin 0.50 mg/dL (0.2-1.0) 10/24/24 04:30 AST 24 Units/L (15-37) 10/24/24 04:30 ALT 32 Units/L (12-78) 10/24/24 04:30 Alkaline Phosphatase 94 Units/L (46-116) 10/24/24 04:30 B-Natriuretic Peptide 156 pg/mL (0-79) H 10/20/24 04:57 Total Protein 6.6 g/dL (6.4-8.2) 10/24/24 04:30 Albumin 2.4 g/dL (3.4-5.0) L 10/24/24 04:30 Globulin 4.2 g/dL (2.5-4.5) 10/24/24 04:30 Albumin/Globulin Ratio 0.6 Ratio (1.1-2.1) L 10/24/24 04:30 Specimen Type Clean catch urine 10/18/24 14:51 Urine Color Yellow (YELLOW) 10/18/24 14:51 Urine Appearance Clear (CLEAR) 10/18/24 14:51 Urine pH 6.0 (5.0 - 8.0) 10/18/24 14:51 Ur Specific [place] 1.010 (1.000-1.030) 10/18/24 14:51 Urine Protein 2+ (NEGATIVE) 10/18/24 14:51 Urine Glucose (UA) Negative (NEGATIVE) 10/18/24 14:51 Urine Ketones Negative (NEGATIVE) 10/18/24 14:51 Urine Blood 1+ (NEGATIVE) 10/18/24 14:51 Urine Nitrite Negative (NEGATIVE) 10/18/24 14:51 Urine Bilirubin Negative (NEGATIVE) 10/18/24 14:51 Urine Urobilinogen Normal (NORMAL) 10/18/24 14:51 Ur Leukocyte Esterase Negative (NEGATIVE) 10/18/24 14:51 Urine RBC 3-5 /HPF (0-3) A 10/18/24 14:51 Urine WBC 0-2 /HPF (0-5) 10/18/24 14:51 Ur Squamous Epith Cells Rare /HPF (NEGATIVE) 10/18/24 14:51 Amorphous Sediment Trace /HPF (NEGATIVE) 10/18/24 14:51 Urine Bacteria Negative /HPF (NEGATIVE) 10/18/24 14:51 Ur Culture Indicated? No/not indicated 10/18/24 14:51 SARS-CoV-2 (PCR) Negative (NEGATIVE) 10/18/24 10:13 Influenza Type A (PCR) Negative (NEGATIVE) 10/18/24 10:13 Influenza Type B (PCR) Negative (NEGATIVE) 10/18/24 10:13 RSV (PCR) Negative (NEGATIVE) 10/18/24 10:13 Resp Viral Panel (PCR) See scanned report 10/18/24 15:30 Plan (1) Hypoxemia: Status: Acute Plan: ICU IV ATBX, RESP TEHRAPY SUPPLEMENTAL O2, IV HYDRATION I&OS CARDIAC MONITORING CTA IN ER, ABG IN ER VERIFY HOME MEDICATIONS AND RESUME (2) RLL pneumonia: Status: Acute Qualifiers: Pneumonia type: due to unspecified organism Qualified Code(s): J18.9 - Pneumonia, unspecified organism (3) Hypothyroidism (acquired): Status: Acute (4) Atrial fibrillation: Status: Acute Qualifiers: Atrial fibrillation type: unspecified Qualified Code(s): I48.91 - Unspecified atrial fibrillation (5) CAD (coronary artery disease): Status: Chronic (6) COPD (chronic obstructive pulmonary disease): Status: Chronic
[2024-10-24] MEDS: ULTRAM PO PRN (12:42)
[2024-10-24] MEDS: ULTRAM ONE (14:03)
[2024-10-25 06:59] LABS: BASOPHILS % (AUTO) 0.2 % (0.2-1.0); EOSINOPHILS # (AUTO) 0.2 x10^3/uL (0.0-0.2); EOSINOPHILS % (AUTO) 1.2 % (0.9-2.9); HEMATOCRIT 39.1 % (36.0-47.0); HEMOGLOBIN 12.9 g/dL (12.0-16.0); LYMPHOCYTES % (AUTO) 7.5 % (21.0-51.0); MEAN CORPUSCULAR HEMOGLOBIN 29.4 pg (27.0-34.0); MEAN CORPUSCULAR VOLUME 89.1 fL (80.0-100.0); MEAN PLATELET VOLUME 8.9 fL (7.4-11.0); MONOCYTES # (AUTO) 1.5 x10^3/uL (0.3-0.8); MONOCYTES % (AUTO) 11.4 % (0.0-13.0); NEUTROPHILS # (AUTO) 10.6 x10^3/uL (2.2-4.8); NEUTROPHILS % (AUTO) 79.7 % (42.0-75.0); PLATELET COUNT 137 X10^3/uL (150.0-450.0); RED BLOOD COUNT 4.39 X10^6/uL (3.5-5.4); WHITE BLOOD COUNT 13.3 X10^3/uL (3.6-10.0)
[2024-10-25 07:19] LABS: ALANINE AMINOTRANSFERASE 30 Units/L (12-78); ASPARTATE AMINO TRANSFERASE 26 Units/L (15-37); BAND NEUTROPHILS % 6 % (0-10); BLOOD UREA NITROGEN 35 mg/dL (7-18); CALCIUM 8.8 mg/dL (8.5-10.1); CARBON DIOXIDE 38.5 mmol/L (21-32); CHLORIDE 99 mmol/L (98-107); CREATININE 1.16 mg/dL (0.55-1.02); GLUCOSE 93 mg/dL (65-99); SODIUM 137 mmol/L (136-145); eGFR NON BLACK RACES 47 (>60)
[2024-10-25 07:20] LABS: ALBUMIN 2.4 g/dL (3.4-5.0); ALKALINE PHOSPHATASE 92 Units/L (46-116); COR CA(FOR HYPOALB) 10.1 mg/dL (8.5-10.1); PLATELET MORPHOLOGY COMMENT NORMAL (NORMAL); POTASSIUM 5.1 mmol/L (3.5-5.1); TOTAL PROTEIN 6.8 g/dL (6.4-8.2)
--- NOTE | 2024-10-25 11:52 | RAD ---
EXAM:CHEST, 1 VIEWHISTORY:pneumoonia, chf; ASTHMA, CAD, CVA, HTN, RENAL DISEASE, AFIB SX: APPY, WATCHMAN DEVICECOMPARISON:10/22/2024FINDINGS:The cardiomediastinal silhouette is stable.Similar left-sided opacities. No pneumothorax. The right lung is relatively clear.No acute osseous abnormality.IMPRESSION:Similar left-sided opacities.THIS IS AN ELECTRONICALLY VERIFIED FINAL REPORT10/25/2024 11:49 AM - Electronically signed by Ryan Swenson MD
[2024-10-26] MEDS ORDERED: NS 1/2 1,000 ML IV 1,000 ML IV ONE (04:07)
[2024-10-26 05:36] LABS: ALBUMIN 2.2 g/dL (3.4-5.0); CALCIUM 8.4 mg/dL (8.5-10.1); CARBON DIOXIDE 37.2 mmol/L (21-32); COR CA(FOR HYPOALB) 9.8 mg/dL (8.5-10.1); CREATININE 1.13 mg/dL (0.55-1.02); POTASSIUM 4.2 mmol/L (3.5-5.1); TOTAL PROTEIN 6.3 g/dL (6.4-8.2)
[2024-10-26 05:41] LABS: EOSINOPHILS # (AUTO) 0.1 x10^3/uL (0.0-0.2); EOSINOPHILS % (AUTO) 0.7 % (0.9-2.9); MONOCYTES # (AUTO) 0.7 x10^3/uL (0.3-0.8); NEUTROPHILS # (AUTO) 6.5 x10^3/uL (2.2-4.8); NEUTROPHILS % (AUTO) 78.7 % (42.0-75.0); WHITE BLOOD COUNT 8.3 X10^3/uL (3.6-10.0)
[2024-10-26 05:45] LABS: BASOPHILS % (AUTO) 0.2 % (0.2-1.0); HEMATOCRIT 36.4 % (36.0-47.0); HEMOGLOBIN 11.8 g/dL (12.0-16.0); LYMPHOCYTES # (AUTO) 0.9 X10^3/uL (1.3-2.9); LYMPHOCYTES % (AUTO) 11.4 % (21.0-51.0); MEAN CORPUSCULAR HEMOGLOBIN 29.1 pg (27.0-34.0); MEAN CORPUSCULAR HGB CONC 32.5 g/dL (33.0-35.0); MEAN CORPUSCULAR VOLUME 89.7 fL (80.0-100.0); MEAN PLATELET VOLUME 8.8 fL (7.4-11.0); PLATELET COUNT 168 X10^3/uL (150.0-450.0); RED BLOOD COUNT 4.06 X10^6/uL (3.5-5.4); RED CELL DISTRIBUTION WIDTH 14.1 % (11.6-16.5)
[2024-10-26 06:04] LABS: BAND NEUTROPHILS % 3 % (0-10); METAMYELOCYTES % 5; MYELOCYTES % 4; PLATELET MORPHOLOGY COMMENT NORMAL (NORMAL)
[2024-10-26 06:05] LABS: OVALOCYTES PRESENT; SCHISTOCYTES PRESENT
[2024-10-26 16:34] VITALS: BP 105/68; PULSE 83; RESP 18; O2SAT 95
[2024-10-26 16:37] VITALS: TEMP 99.1
== END 2024-10-26 18:10 | disposition home health service (06) | DRG 179 ==
LOC: ER 10:09 → ICU 13:56
PROVIDERS: ADMIT Internal Medicine; ATTEND Internal Medicine
DX: Z95.818 Presence of other cardiac implants and grafts; E83.42 Hypomagnesemia; R09.02 Hypoxemia; J13 Pneumonia due to Streptococcus pneumoniae; B97.89 Other viral agents as the cause of diseases classified elsewhere; R07.89 Other chest pain; J15.0 Pneumonia due to Klebsiella pneumoniae; Z03.818 Encounter for observation for suspected exposure to other biological agents ruled out; R94.31 Abnormal electrocardiogram [ECG] [EKG]; I48.91 Unspecified atrial fibrillation; Z59.89 Other problems related to housing and economic circumstances; J44.89 Other specified chronic obstructive pulmonary disease; R06.02 Shortness of breath; I25.10 Atherosclerotic heart disease of native coronary artery without angina pectoris; E03.8 Other specified hypothyroidism; I11.0 Hypertensive heart disease with heart failure; R26.89 Other abnormalities of gait and mobility